=== PATIENT | male | born 1960 | race African-American/Black ===

== ENCOUNTER → 2016-11-16 | Outpatient (CLI) | payer MEDICARE | LOC: OD 13:08 | PROVIDERS: ATTEND Physician Assistant | DX: M25.552 Pain in left hip (principal); M25.551 Pain in right hip | CPT/HCPCS: 73522 ==

== ENCOUNTER 2016-12-23 13:57 | Emergency (ER) | payer MEDICARE, MEDICAID ==
--- NOTE | 2016-12-23 14:32 | ER Document Report ---
ED Medical Screen (RME) - General Chief Complaint: Hip Pain Stated Complaint: HIP PAIN Notes: 56-year-old male kidney transplant patient with prior history of DVT in the right thigh 3-4 years ago. Now only takes a baby aspirin daily. She has had left hip pain for over 5 weeks, x-ray showed mild degenerative changes on 2016. Now he is having pain in the left medial thigh is concerned about DVT. I have greeted and performed a rapid initial assessment of this patient. A comprehensive ED assessment and evaluation of the patient, analysis of test results and completion of the medical decision making process will be conducted by additional ED providers. TRAVEL OUTSIDE OF THE [place] IN LAST 30 DAYS: No - Related Data Allergies/Adverse Reactions: ibuprofen Allergy (Mild, Verified 12/23/16 14:02) because of kidneys iodine [Iodine] Allergy (Mild, Verified 12/23/16 14:02) Hives ketorolac tromethamine [From Toradol] Adverse Reaction (Severe, Verified 14:02) Vomiting warfarin sodium [From Coumadin] Adverse Reaction (Severe, Verified 12/23/16 14: 02) weakness enoxaparin sodium [From Lovenox] Adverse Reaction (Intermediate, Verified 14:02) falls promethazine HCl [From Phenergan] Adverse Reaction (Unknown, Verified 12/23/16 14:02) Vomiting chlorohexidine Allergy (Mild, Uncoded 12/23/16 14:02) Hives Past Medical History - Past Medical History Cardiac Medical History: Reports: Hx Congestive Heart Failure, Hx Hypercholesterolemia Denies: Hx Coronary Artery Disease, Hx Heart Attack, Hx Hypertension - states now hypotension 04/12/14 Pulmonary Medical History: Reports: Hx Bronchitis, Hx Tuberculosis - as child Denies: Hx Asthma, Hx COPD, Hx Pneumonia Neurological Medical History: Denies: Hx Cerebrovascular Accident, Hx Seizures Endocrine Medical History: Reports: Hx Diabetes Mellitus Type 1, Hx Diabetes Mellitus Type 2 - IDDM Renal/ Medical History: Reports: Hx End Stage Renal Disease, Hx Hemodialysis - home dialysis, Hx Kidney Stones. Denies: Hx Peritoneal Dialysis GI Medical History: Reports: Hx Gastroesophageal Reflux Disease Musculoskeltal Medical History: Denies Hx Arthritis Psychiatric Medical History: Reports: Hx Depression Past Surgical History: Reports: Hx Abdominal Surgery - GASTRIC SLEEVE PROCEEDURE January 2013, Hx Cardiac Catheterization, Hx Orthopedic Surgery - rt knee , rt hand rt elbow cataract blood clot left leg 2004, Hx Vascular Surgery - stents in left leg - Immunizations Hx Diphtheria, Pertussis, Tetanus Vaccination: Yes - 2008 Physical Exam - Vital signs Vitals: Temp Pulse Resp BP Pulse Ox 97.8 F 78 16 179/81 H 99 12/23/16 14:03 12/23/16 14:03 12/23/16 14:03 12/23/16 14:03 12/23/16 14:03 Course - Vital Signs Vital signs: Temp Pulse Resp BP Pulse Ox 97.8 F 78 16 179/81 H 99 12/23/16 14:03 12/23/16 14:03 12/23/16 14:03 12/23/16 14:03 12/23/16 14:03
[2016-12-23 14:58] LABS: ABSOLUTE EOSINOPHILS # (AUTO) 0.1 10^3/uL (0.0-0.6); ABSOLUTE LYMPHOCYTES (AUTO) 1.2 10^3/uL (0.5-4.7); ABSOLUTE MONOCYTES (AUTO) 0.4 10^3/uL (0.1-1.4); ABSOLUTE NEUT (AUTO) 2.3 10^3/uL (1.7-8.2); BASOPHILS % (AUTO) 0.3 % (0-2); EOSINOPHILS % (AUTO) 1.9 % (0-6); HEMATOCRIT 36.6 % (37.9-51.0); HEMOGLOBIN 11.8 g/dL (13.5-17.0); HGB HCT DIFFERENCE -1.2; LYMPHOCYTES % (AUTO) 29.6 % (13-45); MEAN CORPUSCULAR HGB CONC 32.3 g/dL (32.0-36.0); MEAN CORPUSCULAR VOLUME 74 fl (80-97); MONOCYTES % (AUTO) 9.7 % (3-13); RED BLOOD COUNT 4.92 10^6/uL (4.35-5.55); RED CELL DISTRIBUTION WIDTH 17.9 % (11.5-14.0); SEGMENTED NEUTROPHILS % (AUTO) 58.5 % (42-78)
[2016-12-23 15:32] LABS: ALANINE AMINOTRANSFERASE 29 U/L (21-72); ALBUMIN 4.1 g/dL (3.5-5.0); ALKALINE PHOSPHATASE 116 U/L (38-126); ANION GAP 13 (5-19); ASPARTATE AMINO TRANSFERASE 18 U/L (17-59); BILIRUBIN,DIRECT 0.3 mg/dL (0.0-0.4); BILIRUBIN,TOTAL 0.6 mg/dL (0.2-1.3); BLOOD UREA NITROGEN 25 mg/dL (7-20); CALCIUM 9.7 mg/dL (8.4-10.2); CARBON DIOXIDE 26 mmol/L (22-30); CHLORIDE 107 mmol/L (98-107); CREATININE RESULT 1.64 mg/dL (0.52-1.25); GLUCOSE 99 mg/dL (75-110); SODIUM 146.3 mmol/L (137-145)
--- NOTE | 2016-12-23 17:45 | ER Document Report ---
HPI - HPI Patient complains to provider of: left hip and groin pain Onset: Other - 5 weeks Onset/Duration: Gradual Quality of pain: Achy, Stabbing, Throbbing Pain Level: 4 Context: 56-year-old male found to have arthritis in the left hip has pain that radiates into the left groin for 5 weeks. He was concerned that he might have a DVT which she had had in the right leg in the past. He has already been [facility] by [facility] physician Keri venous Doppler ultrasound has been ordered. The pain is worse with movement. Associated Symptoms: None Exacerbated by: Movement, Walking Relieved by: Denies Similar symptoms previously: Yes Recently seen / treated by doctor: Yes - ROS ROS below otherwise negative: Yes Systems Reviewed and Negative: Yes All other systems reviewed and negative - REPRODUCTIVE Reproductive: DENIES: : - DERM Skin Color: Normal Past Medical History - General Information source: Patient - Social History Smoking Status: Unknown if Ever Smoked Frequency of alcohol use: None Drug Abuse: None Lives with: Spouse/Significant other Family History: Reviewed & Not Pertinent Patient has suicidal ideation: No Patient has homicidal ideation: No - Past Medical History Cardiac Medical History: Reports: Hx Congestive Heart Failure, Hx Hypercholesterolemia Pulmonary Medical History: Reports: Hx Bronchitis, Hx Tuberculosis - as child Endocrine Medical History: Reports: Hx Diabetes Mellitus Type 1, Hx Diabetes Mellitus Type 2 - IDDM Renal/ Medical History: Reports: Hx End Stage Renal Disease, Hx Hemodialysis - home dialysis, Hx Kidney Stones. Denies: Hx Peritoneal Dialysis GI Medical History: Reports: Hx Gastroesophageal Reflux Disease Musculoskeltal Medical History: Reports Hx Arthritis - Left hip Psychiatric Medical History: Reports: Hx Depression Past Surgical History: Reports: Hx Abdominal Surgery - GASTRIC SLEEVE PROCEEDURE January 2013, Hx Cardiac Catheterization, Hx Orthopedic Surgery - rt knee , rt hand rt elbow cataract blood clot left leg 2004, Hx Vascular Surgery - stents in left leg - Immunizations Hx Diphtheria, Pertussis, Tetanus Vaccination: Yes - 2008 Hx Pneumococcal Vaccination: 09/04/08 Vertical Provider Document - CONSTITUTIONAL Agree With Documented VS: Yes Exam Limitations: No Limitations - INFECTION CONTROL TRAVEL OUTSIDE OF THE [place] IN LAST 30 DAYS: No - HEENT HEENT: Normocephalic - NECK Neck: Supple - RESPIRATORY Respiratory: Breath Sounds Normal, No Respiratory Distress O2 Sat by Pulse Oximetry: 99 - CARDIOVASCULAR Cardiovascular: Regular Rate, Regular Rhythm - GI/ABDOMEN Gastrointestinal: Abdomen Soft, Abdomen Non-Tender, No Organomegaly - BACK Back: Normal Inspection - MUSCULOSKELETAL/EXTREMETIES Musculoskeletal/Extremeties: MAEW, FROM, Tender - Left groin muscle and tendon no hernia., Full femoral pulse. Notes: No rash, no heat, no hip tenderness with internal/external rotation. - NEURO Level of Consciousness: Awake, Alert - DERM Integumentary: Warm, Dry, No Rash Course - Re-evaluation Re-evalutation: 12/23/16 17:59 Dr. Raymon Bragg called in the venous Doppler ultrasound is negative. His BUN/creatinine are lower than his norm. - Vital Signs Vital signs: Temp Pulse Resp BP Pulse Ox 97.8 F 78 16 179/81 H 99 12/23/16 14:03 12/23/16 14:03 12/23/16 14:03 12/23/16 14:03 12/23/16 14:03 - Laboratory Result Diagrams: 12/23/16 14:45 12/23/16 14:45 Laboratory results interpreted by me: 12/23/16 12/23/16 14:45 14:45 Hgb 11.8 L Hct 36.6 L MCV 74 L MCH 24.0 L RDW 17.9 H Plt Count 134 L Sodium 146.3 H BUN 25 H Creatinine 1.64 H Est GFR ( Amer) 53 L Est GFR (Non-Af Amer) 44 L Discharge - Discharge Clinical Impression: chronic left hip and groin pain, Arthritis of left hip Condition: Good Disposition: HOME, SELF-CARE Instructions: Arthritis ([facility]), Myalagia (Muscle Pain) ([facility]) Additional Instructions: Call and get appointment with Dr. Bowens next week Return to the emergency room if worse Venous Doppler ultrasound is negative that was read by Dr. Raymon Bragg Please complete the patient satisfaction survey if you get one, and return it.. If you do not receive a survey, then you can go to the [facility] website, [email or web address] and place your comments about your very good care. Thank you very much. It was a pleasure being your medical provider today. Referrals: DANIELE CLARKE MD [ACTIVE STAFF] - Follow up in 3-5 days
[2016-12-23 18:34] VITALS: BP 149/70
--- NOTE | 2016-12-24 14:48 | XCELERA REPORT ---
[address] [address] Lower Extremity Venous Evaluation Name: SHI SIDDIQI Age: 56 yrs Gender: Male : 1960 Patient Status: Emergency Patient Location: ER Study Date: 12/23/2016 03:29 PM Procedure: Color flow and duplex imaging of the veins of the left lower extremity as well as the right Common Femoral vein. Reason For Study: left medial thigh pain,prior DVT right thigh Ordering Physician: JOHNNY MEIER Performed By: Bella Leone Right Sided Venous Evaluation The right common femoral vein is fully compressible. Spontaneous and phasic flow is present in the right common femoral vein. Left Sided Venous Evaluation Normal vessel filling wall to wall, compression and augmentation as well as Colour flow down to the infrageniculate veins. Critical Findings Called in to the ER. Interpretation Summary No duplex evidence of DVT or obstruction in the left lower extremity nor in the right Common Femoral vein. : JOHNNY MEIER > Raymon Bragg
== END 2016-12-23 18:33 | disposition home or self-care (01) ==
LOC: ER 13:57
DX: G89.29 Other chronic pain (principal); M25.552 Pain in left hip; R10.9 Unspecified abdominal pain; M16.12 Unilateral primary osteoarthritis, left hip; E78.00 Pure hypercholesterolemia, unspecified; E11.22 Type 2 diabetes mellitus with diabetic chronic kidney disease; N18.6 End stage renal disease; Z99.2 Dependence on renal dialysis; Z79.4 Long term (current) use of insulin; Z86.11 Personal history of tuberculosis; Z86.718 Personal history of other venous thrombosis and embolism
CPT/HCPCS: 36415; 80053; 85025; 93971; 99284

== ENCOUNTER → 2016-12-28 | Outpatient (CLI) | payer MEDICARE, MEDICAID | LOC: RAD 19:51 | PROVIDERS: ATTEND Family Medicine | DX: M25.552 Pain in left hip (principal) ==

== ENCOUNTER → 2017-04-05 | Outpatient (CLI) | payer MEDICARE, MEDICAID ==
[2017-04-05 12:03] LABS: ABSOLUTE EOSINOPHILS # (AUTO) 0.1 10^3/uL (0.0-0.6); ABSOLUTE LYMPHOCYTES (AUTO) 0.6 10^3/uL (0.5-4.7); ABSOLUTE MONOCYTES (AUTO) 0.3 10^3/uL (0.1-1.4); ABSOLUTE NEUT (AUTO) 2.3 10^3/uL (1.7-8.2); BASOPHILS % (AUTO) 0.3 % (0-2); EOSINOPHILS % (AUTO) 2.4 % (0-6); HEMATOCRIT 36.5 % (37.9-51.0); HEMOGLOBIN 11.8 g/dL (13.5-17.0); HGB HCT DIFFERENCE -1.1; LYMPHOCYTES % (AUTO) 18.7 % (13-45); MEAN CORPUSCULAR HEMOGLOBIN 24.6 pg (27.0-33.4); MEAN CORPUSCULAR HGB CONC 32.4 g/dL (32.0-36.0); MEAN CORPUSCULAR VOLUME 76 fl (80-97); MONOCYTES % (AUTO) 8.4 % (3-13); RED CELL DISTRIBUTION WIDTH 18.2 % (11.5-14.0); SEGMENTED NEUTROPHILS % (AUTO) 70.2 % (42-78); WHITE BLOOD COUNT 3.3 10^3/uL (4.0-10.5)
[2017-04-05 12:23] LABS: BLOOD UREA NITROGEN 25 mg/dL (7-20); CALCIUM 9.7 mg/dL (8.4-10.2); GLUCOSE 71 mg/dL (75-110)
[2017-04-05 12:24] LABS: ALANINE AMINOTRANSFERASE 28 U/L (21-72); ALBUMIN 3.9 g/dL (3.5-5.0); ALKALINE PHOSPHATASE 104 U/L (38-126); ANION GAP 13 (5-19); ASPARTATE AMINO TRANSFERASE 20 U/L (17-59); BILIRUBIN,DIRECT 0.3 mg/dL (0.0-0.4); BILIRUBIN,TOTAL 0.8 mg/dL (0.2-1.3); CARBON DIOXIDE 25 mmol/L (22-30); CHLORIDE 107 mmol/L (98-107); CHOLESTEROL 209.27 mg/dL (0-200); Direct HDL 56 mg/dL (>40); POTASSIUM 3.6 mmol/L (3.6-5.0); SODIUM 144.5 mmol/L (137-145); TOTAL PROTEIN 6.8 g/dL (6.3-8.2); TRIGLYCERIDES 56 mg/dL (<150)
[2017-04-05 12:34] LABS: DIRECT LDL 137 mg/dL (<100)
[2017-04-06 12:38] LABS: CREATININE URINE 15.8 mg/dL (Not Estab.); MICROALBUMIN URINE <3.0 ug/mL (Not Estab.)
== END ==
LOC: OD 10:40
PROVIDERS: ATTEND Family Medicine Geriatric Medicine
DX: E11.40 Type 2 diabetes mellitus with diabetic neuropathy, unspecified (principal); I10 Essential (primary) hypertension; E66.9 Obesity, unspecified; Z79.899 Other long term (current) drug therapy
CPT/HCPCS: 36415; 80053; 80061; 82043; 82570; 83036; 84443; 85025

== ENCOUNTER → 2017-05-30 | Outpatient (CLI) | payer MEDICARE, MEDICAID ==
--- NOTE | 2017-05-30 12:41 | RADIOLOGY REPORT (SQ) ---
EXAM DESCRIPTION: FOOT RIGHT COMPLETE COMPLETED DATE/TIME: 05/30/2017 12:31 pm REASON FOR STUDY: PAIN IN RIGHT FOOT,CELLULITIS OF RIGHT TOE M79.671 PAIN IN RIGHT FOOT L03.031 CE LLULITIS OF RIGHT TOE COMPARISON: 06/28/2016. NUMBER OF VIEWS: Three views. TECHNIQUE: AP, lateral and oblique without weight bearing radiographic images acquired of the right foot. LIMITATIONS: None. FINDINGS: MINERALIZATION: Normal. BONES: No acute fracture or dislocation. No worrisome bone lesions. Old healed fracture of the proxim al phalanx of the 5th toe. Osteophytes in the mid foot. Spurring on the calcaneus. JOINTS: No erosions. No laurie-articular osteopenia. No chondrocalcinosis. SOFT TISSUES: No swelling. No calcifications. OTHER: No other significant finding. IMPRESSION: STABLE CHRONIC CHANGES. NO ACUTE FINDINGS. NO RADIOGRAPHIC ABNORMALITY INVOLVING THE D ISTAL 2ND TOE. TECHNICAL DOCUMENTATION: JOB ID: [id number] [employer]- All Rights Reserved
== END ==
LOC: OD 12:17
PROVIDERS: ATTEND Family Medicine Geriatric Medicine
DX: M79.671 Pain in right foot (principal); L03.031 Cellulitis of right toe

== ENCOUNTER 2017-06-07 08:10 | Day surgery (SDC) | payer MEDICAID, MEDICARE ==
[~2017-06-07 08:10] MED LIST: DIPHENHYDRAMINE HCL 50 MG/ML VIAL ONE; EPINEPHRINE INJ 1 MG/10 ML DISP.SYRIN ONE; FLUMAZENIL INJ 0.5 MG/5 ML VIAL ONE; GLUCAGON,HUMAN RECOMB 1 MG INJ ONE; NALOXONE HCL INJ/PF 0.4 MG/1 ML SDV ONE; ONDANSETRON HCL INJ/PF 4 MG/2 ML SDV ONE
[2017-06-07] MEDS: MIDAZOLAM 2 MG/2 ML INJ ONE ×3 (08:40→08:48)
[2017-06-07] MEDS: FENTANYL CITRATE INJ/PF 100 MCG/2 ML AMPUL ONE ×2 (08:42→08:44)
--- NOTE | 2017-06-07 08:55 | Operative Report ---
Operative Report DATE OF SURGERY: 06/07/17 Operative Report: The risks benefits and alternatives of the procedure explained to the patient in detail and informed consent is obtained.A GIF Olympus video scope was inserted into the patient's mouth and hypopharynx, the esophagus is identified intubated and insufflated, the scope was then advanced through the esophagus stomach and duodenum, retroflexion maneuver is done, the esophagus stomach and first and second portions of the duodenum examined PREOPERATIVE DIAGNOSIS: Gastroesophageal reflux disease, dyspepsia POSTOPERATIVE DIAGNOSIS: Status post gastric sleeve surgery. Gastritis status post biopsy rule out Helicobacter pylori OPERATION: EGD with biopsy SURGEON: DORA ROGERS ANESTHESIA: Moderate Sedation - 4 mg of Versed, 75 mcg of fentanyl. Conscious sedation monitoring time 30 minutes. TISSUE REMOVED OR ALTERED: Gastric mucosal specimen obtained COMPLICATIONS: None. ESTIMATED BLOOD LOSS: None. INTRAOPERATIVE FINDINGS: As described above. PROCEDURE: Patient tolerated procedure well. No immediate postprocedure complications are noted. Patient discharged in good condition. Discharge date 06/07/2017. Discharge diet: Regular. Discharge activity: Regular. 2-3 week follow-up to discuss findings. We will wait on pathology. Patient is instructed to call the office or proceed to the emergency room should there be any further problems or questions.
[2017-06-07 11:15] VITALS: BP 128/61
== END 2017-06-07 10:10 | disposition home or self-care (01) ==
LOC: END 08:10
PROVIDERS: ATTEND Internal Medicine Gastroenterology
PROC: 0DB68ZX Excision of Stomach, Via Natural or Artificial Opening Endoscopic, Diagnostic (ICD-10-PCS; principal; 2017-06-07 08:30)
DX: K29.70 Gastritis, unspecified, without bleeding (principal); K21.9 Gastro-esophageal reflux disease without esophagitis; I10 Essential (primary) hypertension; Z79.899 Other long term (current) drug therapy; Z79.4 Long term (current) use of insulin; Z79.82 Long term (current) use of aspirin
CPT/HCPCS: 43239; 82962; 88342 ×2; 88305 ×2; 88312 ×2; 88313 ×2; J2250; J3010; J0171; J1200; J1610; J2310; J2405; J3490

== ENCOUNTER → 2017-12-05 | Outpatient (CLI) | payer MEDICARE, MEDICAID ==
--- NOTE | 2017-12-05 13:38 | RADIOLOGY REPORT (SQ) ---
EXAM DESCRIPTION: ARTERIAL LOWER EXTREM UNILAT COMPLETED DATE/TIME: 12/05/2017 12:08 pm REASON FOR STUDY: PVD M79.662 PAIN IN LEFT LOWER LEG I73.9 PERIPHERAL VASCULAR DISEASE, UNSPECIFIE D COMPARISON: 10/27/2012 TECHNIQUE: Dynamic and static marie scale and color images acquired of the left lower extremity arter ies. Additional selected spectral images recorded. ABIs recorded. LIMITATIONS: None. FINDINGS: RIGHT LEG: ABIS: Normal, over 1.0. RIGHT DORSALIS PEDIS: Multiphasic flow, normal waveforms. TBI: Not performed. OTHER: No other significant finding. LEFT LEG: ABIS: Normal, over 1.0. INFLOW ARTERIES: Normal, no obstruction evident. FEMORAL ARTERIES:Multiphasic waveforms. Normal, no velocity elevation to suggest focal stenosis. Norm al color Doppler evaluation. No aneurysm. POPLITEAL ARTERY:Multiphasic waveforms. Normal, no velocity elevation to suggest focal stenosis. Norm al color Doppler evaluation. No aneurysm. PATENT TIBIOPERONEAL TRUNK AND 3 VESSEL RUNOFF: Yes, normal vessels. TBI: Not performed. OTHER: No other significant finding. IMPRESSION: NORMAL LEFT LOWER EXTREMITY ARTERIAL DOPPLER WITH ABIs. COMMENT: [facility] NORMAL: Greater than 1.0 MINIMAL DISEASE: 0.9 to 1.0 CLAUDICATION: 0.5 to 0.9 SEVERE ARTERIAL DISEASE: Less than 0.5 [facility] NORMAL: Greater than 1.0 (1.2 If Heavy Calcifications) NORMAL TO MILD ISCHEMIA: 0.8 to 1.0 MODERATE ISCHEMIA: 0.4 to 0.8 SEVERE ISCHEMIA: Less than 0.4 TECHNICAL DOCUMENTATION: JOB ID: [id number] [employer]- All Rights Reserved Reading location - IP/workstation name: [email or web address]
== END ==
LOC: SP 10:48
PROVIDERS: ATTEND Family Medicine Geriatric Medicine
DX: I73.9 Peripheral vascular disease, unspecified (principal); M79.672 Pain in left foot; M79.662 Pain in left lower leg
CPT/HCPCS: 93926

== ENCOUNTER → 2017-12-05 | Outpatient (CLI) | payer MEDICARE, MEDICAID ==
--- NOTE | 2017-12-05 10:03 | RADIOLOGY REPORT (SQ) ---
EXAM DESCRIPTION: FOOT LEFT COMPLETE COMPLETED DATE/TIME: 12/05/2017 9:42 am REASON FOR STUDY: PAIN IN LEFT FOOT M79.672 PAIN IN LEFT FOOT COMPARISON: None. NUMBER OF VIEWS: Three views. TECHNIQUE: AP, lateral and oblique radiographic images acquired of the left foot. LIMITATIONS: None. FINDINGS: MINERALIZATION: Overall normal bone density BONES: Old fractures along the base of the 3rd and 4th metatarsals with surrounding bony bridging austin brandon. JOINTS: There is advanced osteoarthritis at the 3rd and 4th tarsometatarsal joints with joint space n arrowing and bony spurring. Advanced osteoarthritis at the 5th tarsometatarsal joint. SOFT TISSUES: No soft tissue swelling. No foreign body. OTHER: No other significant finding. IMPRESSION: Old healed fractures of the bases, 4th and 5th metatarsals Advanced osteoarthritis at the 3rd 4th and 5th tarsometatarsal joints. TECHNICAL DOCUMENTATION: JOB ID: [id number] [employer]- All Rights Reserved Reading location - IP/workstation name: [email or web address]
== END ==
LOC: OD 09:29
PROVIDERS: ATTEND Family Medicine Geriatric Medicine
DX: M79.672 Pain in left foot (principal); Z87.81 Personal history of (healed) traumatic fracture

== ENCOUNTER → 2018-01-08 | Outpatient (CLI) | payer MEDICARE ==
[2018-01-08 09:24] LABS: ANION GAP 12 (5-19); BLOOD UREA NITROGEN 26 mg/dL (7-20); CALCIUM 10.1 mg/dL (8.4-10.2); CARBON DIOXIDE 31 mmol/L (22-30); CHLORIDE 108 mmol/L (98-107); GLUCOSE 95 mg/dL (75-110); POTASSIUM 3.6 mmol/L (3.6-5.0); SODIUM 150.7 mmol/L (137-145); URIC ACID 8.8 mg/dL (3.5-8.5)
== END ==
LOC: OD 08:01
PROVIDERS: ATTEND Family Medicine Geriatric Medicine
DX: M79.672 Pain in left foot (principal)
CPT/HCPCS: 36415; 80048; 84550

== ENCOUNTER → 2018-02-19 | Outpatient (CLI) | payer MEDICARE ==
--- NOTE | 2018-02-19 15:50 | RADIOLOGY REPORT (SQ) ---
EXAM DESCRIPTION: FOOT RIGHT COMPLETE COMPLETED DATE/TIME: 02/19/2018 3:31 pm REASON FOR STUDY: CELLULITIS OF RT TOE,CHRONIC GOUT, UNSPECIFIED, WITHOUT TOPHUS (TOPHI) Z79.899 OT HER ALF (CURRENT) DRUG THERAPY L03.031 CELLULITIS OF RIGHT TOE M1A.9XX0 CHRONIC GOUT, UNSPECI FIED, WITHOUT TOPHUS (TOPHI) COMPARISON: 05/30/2017 NUMBER OF VIEWS: Three views. TECHNIQUE: AP, lateral and oblique radiographic images acquired of the right foot. LIMITATIONS: None. FINDINGS: MINERALIZATION: Normal. BONES: No acute fracture. There is what appears to be chronic subluxation of the interphalangeal jens nt of the great toe. JOINTS: No effusions. SOFT TISSUES: No soft tissue swelling. No foreign body. OTHER: No other significant finding. IMPRESSION: Subluxation of the interphalangeal joint of the great toe. TECHNICAL DOCUMENTATION: JOB ID: [id number] [employer]- All Rights Reserved Reading location - IP/workstation name: [email or web address]
[2018-02-19 16:22] LABS: ABSOLUTE EOSINOPHILS # (AUTO) 0.1 10^3/uL (0.0-0.6); ABSOLUTE LYMPHOCYTES (AUTO) 0.8 10^3/uL (0.5-4.7); ABSOLUTE MONOCYTES (AUTO) 0.4 10^3/uL (0.1-1.4); ABSOLUTE NEUT (AUTO) 3.7 10^3/uL (1.7-8.2); BASOPHILS % (AUTO) 0.2 % (0-2); EOSINOPHILS % (AUTO) 1.1 % (0-6); HEMATOCRIT 37.2 % (37.9-51.0); LYMPHOCYTES % (AUTO) 15.6 % (13-45); MEAN CORPUSCULAR HGB CONC 32.3 g/dL (32.0-36.0); MEAN CORPUSCULAR VOLUME 78 fl (80-97); MONOCYTES % (AUTO) 7.8 % (3-13); PLATELET COUNT 150 10^3/uL (150-450); RED CELL DISTRIBUTION WIDTH 18.8 % (11.5-14.0); SEGMENTED NEUTROPHILS % (AUTO) 75.3 % (42-78); TOTAL CELLS COUNTED % (AUTO) 100 %; WHITE BLOOD COUNT 4.9 10^3/uL (4.0-10.5)
[2018-02-19 16:39] LABS: ALANINE AMINOTRANSFERASE 27 U/L (21-72); ALBUMIN 4.2 g/dL (3.5-5.0); ALKALINE PHOSPHATASE 109 U/L (38-126); ANION GAP 14 (5-19); ASPARTATE AMINO TRANSFERASE 20 U/L (17-59); BILIRUBIN,DIRECT 0.3 mg/dL (0.0-0.4); BILIRUBIN,TOTAL 0.9 mg/dL (0.2-1.3); BLOOD UREA NITROGEN 21 mg/dL (7-20); CALCIUM 10.1 mg/dL (8.4-10.2); CARBON DIOXIDE 27 mmol/L (22-30); CHLORIDE 106 mmol/L (98-107); GLUCOSE 157 mg/dL (75-110); POTASSIUM 3.6 mmol/L (3.6-5.0); SODIUM 146.5 mmol/L (137-145); TOTAL PROTEIN 7.3 g/dL (6.3-8.2); URIC ACID 8.1 mg/dL (3.5-8.5)
== END ==
LOC: OD 14:55
PROVIDERS: ATTEND Family Medicine Geriatric Medicine
DX: L03.031 Cellulitis of right toe (principal); Z79.899 Other long term (current) drug therapy; M1A.9XX0 Chronic gout, unspecified, without tophus (tophi)
CPT/HCPCS: 36415; 80053; 84550; 85025; 87040

== ENCOUNTER → 2018-03-28 | Outpatient (CLI) | payer MEDICARE, MEDICAID ==
[2018-03-28 13:15] LABS: ANION GAP 12 (5-19); BLOOD UREA NITROGEN 20 mg/dL (7-20); CALCIUM 9.2 mg/dL (8.4-10.2); CARBON DIOXIDE 27 mmol/L (22-30); CHLORIDE 108 mmol/L (98-107); GLUCOSE 111 mg/dL (75-110); POTASSIUM 3.9 mmol/L (3.6-5.0); SODIUM 146.9 mmol/L (137-145); URIC ACID 6.2 mg/dL (3.5-8.5)
== END ==
LOC: OD 11:44
PROVIDERS: ATTEND Family Medicine Geriatric Medicine
DX: M1A.9XX0 Chronic gout, unspecified, without tophus (tophi) (principal); I10 Essential (primary) hypertension
CPT/HCPCS: 36415; 80048; 84550

== ENCOUNTER → 2018-04-10 | Outpatient (CLI) | payer MEDICAID, MEDICARE ==
--- NOTE | 2018-04-10 16:14 | XCELERA REPORT ---
[address] [address] Lower Extremity Arterial Evaluation Name: SHI SIDDIQI Age: 57 yrs Gender: Male : 1960 Patient Status: Preadmit Patient Location: [place] Study Date: 04/10/2018 09:14 AM Procedure: A color flow and duplex scan of the lower extremity arteries was performed bilaterally with velocity and waveform anaylsis. Reason For Study: ULCER Ordering Physician: KING LISA Performed By: Nikhil Perez Measurements and Calculations Right Left WILD LIFE PHOTOGRAPHER PSV 117.1 117.5 cm/sec Prox PFA PSV 85.5 -83.0 cm/sec Prox SFA PSV 135.3 117.0 cm/sec Mid SFA PSV -118.6 -110.3cm/sec Dist SFA PSV -78.1 -80.0 cm/sec Prox Pop A PSV 93.7 63.7 cm/sec Dist JASON PSV 22.2 13.0 cm/sec Dist GANG INVESTIGATOR PSV 145.4 79.5 cm/sec Bayron Pedis PSV -49.0 -53.6 cm/sec Right Side Arterial Evaluation Normal velocity and triphasic waveforms noted from the Common Femoral artery to the Posterior Tibial. Monophasic with severe attenuation in the Anterior Tibial, biphasic with well preserved velocity ib the Dorsalis Pedis . 50-99 % stenosis .At the anterior Tibial, seeming reconstitution in the DP. Ankle Brachial index was not done, patient had a study recently. Left Side Arterial Evaluation Normal velocity and triphasic waveforms noted from the Common Femoral artery to the infrageniculate vessels. 0 % stenosis noted. Ankle Brachial index done recently. Interpretation Summary Mild hemodynamically significant lesions in the right lower extremity only, on duplex imaging, at rest. No hemodynamically significant lesions in the left lower extremity only, on duplex imaging, at rest. : KING LISA Raymon Bragg
== END ==
LOC: WI 08:49
PROVIDERS: ATTEND Preventive Medicine Undersea and Hyperbaric Medicine
DX: L97.512 Non-pressure chronic ulcer of other part of right foot with fat layer exposed (principal)
CPT/HCPCS: 93925

== ENCOUNTER → 2018-04-10 | Outpatient (CLI) | payer MEDICARE ==
[2018-04-10 11:09] LABS: ABSOLUTE EOSINOPHILS # (AUTO) 0.1 10^3/uL (0.0-0.6); ABSOLUTE LYMPHOCYTES (AUTO) 1.1 10^3/uL (0.5-4.7); ABSOLUTE MONOCYTES (AUTO) 0.4 10^3/uL (0.1-1.4); ABSOLUTE NEUT (AUTO) 2.4 10^3/uL (1.7-8.2); BASOPHILS % (AUTO) 0.3 % (0-2); EOSINOPHILS % (AUTO) 2.1 % (0-6); HEMATOCRIT 35.6 % (37.9-51.0); HEMOGLOBIN 11.3 g/dL (13.5-17.0); LYMPHOCYTES % (AUTO) 27.6 % (13-45); MEAN CORPUSCULAR HEMOGLOBIN 24.6 pg (27.0-33.4); MEAN CORPUSCULAR HGB CONC 31.8 g/dL (32.0-36.0); MEAN CORPUSCULAR VOLUME 77 fl (80-97); MONOCYTES % (AUTO) 9.6 % (3-13); PLATELET COUNT 149 10^3/uL (150-450); RED BLOOD COUNT 4.61 10^6/uL (4.35-5.55); SEGMENTED NEUTROPHILS % (AUTO) 60.4 % (42-78); TOTAL CELLS COUNTED % (AUTO) 100 %; WHITE BLOOD COUNT 3.9 10^3/uL (4.0-10.5)
[2018-04-10 11:41] LABS: ALANINE AMINOTRANSFERASE 27 U/L (21-72); ALBUMIN 3.7 g/dL (3.5-5.0); ALKALINE PHOSPHATASE 92 U/L (38-126); ANION GAP 10 (5-19); ASPARTATE AMINO TRANSFERASE 27 U/L (17-59); BILIRUBIN,DIRECT 0.2 mg/dL (0.0-0.4); BILIRUBIN,TOTAL 0.8 mg/dL (0.2-1.3); BLOOD UREA NITROGEN 19 mg/dL (7-20); CALCIUM 9.4 mg/dL (8.4-10.2); CARBON DIOXIDE 28 mmol/L (22-30); CHLORIDE 108 mmol/L (98-107); GLUCOSE 115 mg/dL (75-110); POTASSIUM 3.5 mmol/L (3.6-5.0); SODIUM 145.6 mmol/L (137-145); TOTAL PROTEIN 6.6 g/dL (6.3-8.2)
[2018-04-10 11:42] LABS: C-REACTIVE PROTEIN < 5.0 mg/L (<10.0)
[2018-04-10 11:54] LABS: ERYTHROCYTE SEDIMENTATION RATE 22 mm/hr (0-20)
--- NOTE | 2018-04-10 12:36 | RADIOLOGY REPORT (SQ) ---
EXAM DESCRIPTION: FOOT RIGHT COMPLETE COMPLETED DATE/TIME: 04/10/2018 10:36 am REASON FOR STUDY: L97.512 FAT LAYER EXPOSED, TYPE 2 DIABETES MELLITUS WITH FOOT ULCER E11.621 TYPE 2 DIABETES MELLITUS WITH FOOT ULCER COMPARISON: 02/19/2018 NUMBER OF VIEWS: Three views. TECHNIQUE: AP, lateral and oblique without weight bearing radiographic images acquired of the right foot. LIMITATIONS: None. FINDINGS: MINERALIZATION: Normal. BONES: Persistent subluxation at the interphalangeal joint of the great toe. The cortex of bone jer[place] cent to the subluxed joint demonstrates radiolucent change that could be secondary to osteomyelitis. JOINTS: See above SOFT TISSUES: Marked and progressive soft tissue swelling surrounding interphalangeal joint consisten t with cellulitis and ulceration. OTHER: No other significant finding. IMPRESSION: Significant progression of cellulitis great toe is since 02/19/2018. Interval developmen t of radiolucent or possibly destructive change of the cortex and bone adjacent to the joint that may represent osteomyelitis. TECHNICAL DOCUMENTATION: JOB ID: [id number] [employer]- All Rights Reserved Reading location - IP/workstation name: [email or web address]
== END ==
LOC: OD 10:09
PROVIDERS: ATTEND Preventive Medicine Undersea and Hyperbaric Medicine
DX: E11.621 Type 2 diabetes mellitus with foot ulcer (principal); L97.512 Non-pressure chronic ulcer of other part of right foot with fat layer exposed; L03.031 Cellulitis of right toe
CPT/HCPCS: 36415; 80053; 83036; 85025; 85652; 86140

== ENCOUNTER → 2018-05-09 | Outpatient (CLI) | payer MEDICARE ==
[2018-05-09 11:59] LABS: ABSOLUTE EOSINOPHILS # (AUTO) 0.1 10^3/uL (0.0-0.6); ABSOLUTE LYMPHOCYTES (AUTO) 0.9 10^3/uL (0.5-4.7); ABSOLUTE MONOCYTES (AUTO) 0.4 10^3/uL (0.1-1.4); ABSOLUTE NEUT (AUTO) 2.6 10^3/uL (1.7-8.2); BASOPHILS % (AUTO) 0.2 % (0-2); HEMOGLOBIN 11.7 g/dL (13.5-17.0); LYMPHOCYTES % (AUTO) 23.7 % (13-45); MEAN CORPUSCULAR HEMOGLOBIN 24.5 pg (27.0-33.4); MEAN CORPUSCULAR HGB CONC 31.8 g/dL (32.0-36.0); MEAN CORPUSCULAR VOLUME 77 fl (80-97); PLATELET COUNT 154 10^3/uL (150-450); RED CELL DISTRIBUTION WIDTH 18.2 % (11.5-14.0); SEGMENTED NEUTROPHILS % (AUTO) 65.1 % (42-78); TOTAL CELLS COUNTED % (AUTO) 100 %; WHITE BLOOD COUNT 3.9 10^3/uL (4.0-10.5)
[2018-05-09 12:29] LABS: ALANINE AMINOTRANSFERASE 21 U/L (21-72); ALBUMIN 3.7 g/dL (3.5-5.0); ALKALINE PHOSPHATASE 81 U/L (38-126); ANION GAP 9 (5-19); ASPARTATE AMINO TRANSFERASE 17 U/L (17-59); BILIRUBIN,DIRECT 0.2 mg/dL (0.0-0.4); BILIRUBIN,TOTAL 0.6 mg/dL (0.2-1.3); BLOOD UREA NITROGEN 24 mg/dL (7-20); CALCIUM 9.2 mg/dL (8.4-10.2); CARBON DIOXIDE 29 mmol/L (22-30); CHLORIDE 107 mmol/L (98-107); GLUCOSE 96 mg/dL (75-110); POTASSIUM 3.6 mmol/L (3.6-5.0); SODIUM 144.6 mmol/L (137-145); TOTAL PROTEIN 6.8 g/dL (6.3-8.2)
[2018-05-09 12:31] LABS: C-REACTIVE PROTEIN < 5.0 mg/L (<10.0)
[2018-05-09 12:46] LABS: ERYTHROCYTE SEDIMENTATION RATE 23 mm/hr (0-20)
--- NOTE | 2018-05-09 13:54 | RADIOLOGY REPORT (SQ) ---
EXAM DESCRIPTION: FOOT RIGHT COMPLETE COMPLETED DATE/TIME: 05/09/2018 11:26 am REASON FOR STUDY: NON-PRS CHRONIC ULCER OTH PRT RIGHT FOOT W FAT LAYER EXPOSED COMPARISON: 04/10/2018. NUMBER OF VIEWS: Three views right foot. LIMITATIONS: None. FINDINGS: Region of interest is at the great toe IP joint. Here, there is chronic subluxation and e rosion. The regional erosion looks somewhat progressive along the base of the distal phalanx and josé miguel ng the distal medial cortex of the proximal phalanx. Osteopenia otherwise. No other areas of erosio n. OTHER: No other significant finding. IMPRESSION: Progressive erosive changes along the great toe IP joint with chronic subluxation and ar thropathy. TECHNICAL DOCUMENTATION: JOB ID: [id number] Reading location - IP/workstation name: [email or web address]
== END ==
LOC: OD 10:49
PROVIDERS: ATTEND Preventive Medicine Undersea and Hyperbaric Medicine
DX: L97.512 Non-pressure chronic ulcer of other part of right foot with fat layer exposed (principal)
CPT/HCPCS: 36415; 80053; 85025; 85652; 86140

== ENCOUNTER → 2018-06-11 | Outpatient (CLI) | payer MEDICARE, MEDICAID ==
--- NOTE | 2018-06-11 11:55 | RADIOLOGY REPORT (SQ) ---
EXAM DESCRIPTION: FOOT RIGHT COMPLETE COMPLETED DATE/TIME: 06/11/2018 11:33 am REASON FOR STUDY: NON PRESSURE ULCER NECROSIS OF BONE L97.514 NON-PRS CHRONIC ULCER OTH PRT RIGHT F OOT W NECROSIS COMPARISON: Right foot films 02/19/2018, 04/10/2018, 05/09/2018 NUMBER OF VIEWS: Three views. TECHNIQUE: AP, lateral and oblique radiographic images acquired of the right foot. LIMITATIONS: None. FINDINGS: Progressive bony resorption of the right great toe distal phalanx at the PIP joint compare d to previous studies, and periosteal new bone along the proximal phalanx from osteomyelitis. Along the medial aspect of the left great toe interphalangeal joint region, a 1 cm diameter skin ulcer is p resent with radiopaque ointment present. Diffuse right second toe soft tissue swelling. Radiopaque ointment along a 1 cm ulcer, right second toe PIP joint region medially. Since the prior exams, there has been resorption or resection of the second toe phalanges adjacent to the 2nd PIP joint. No periosteal new bone along the second toe phal anges. Remainder of the right foot is otherwise unremarkable aside from a small plantar calcaneal spur and m ild bony spurring at the intertarsal joints. IMPRESSION: Progressive bony resorption of the main, right great toe distal phalanx Periosteal new bone along the right great toe proximal phalanx Either resection of, or resorption of the second toe phalanges adjacent to the PIP joint TECHNICAL DOCUMENTATION: JOB ID: [id number] [employer]- All Rights Reserved Reading location - IP/workstation name: [email or web address]
== END ==
LOC: OD 11:20
PROVIDERS: ATTEND Preventive Medicine Undersea and Hyperbaric Medicine
DX: L97.514 Non-pressure chronic ulcer of other part of right foot with necrosis of bone (principal)

== ENCOUNTER 2018-07-02 12:21 | Day surgery (SDC) | payer MEDICARE, MEDICAID ==
[~2018-07-02 12:21] MED LIST changes: +DIAZEPAM 5 MG TABLET PO PRN; -DIPHENHYDRAMINE HCL 50 MG/ML VIAL ONE; -EPINEPHRINE INJ 1 MG/10 ML DISP.SYRIN ONE; -FLUMAZENIL INJ 0.5 MG/5 ML VIAL ONE; -GLUCAGON,HUMAN RECOMB 1 MG INJ ONE; -NALOXONE HCL INJ/PF 0.4 MG/1 ML SDV ONE; -ONDANSETRON HCL INJ/PF 4 MG/2 ML SDV ONE
[2018-07-02 13:20] LABS: HEMATOCRIT 35.4 % (37.9-51.0); HEMOGLOBIN 11.7 g/dL (13.5-17.0); MEAN CORPUSCULAR HEMOGLOBIN 25.5 pg (27.0-33.4); MEAN CORPUSCULAR VOLUME 77 fl (80-97); PLATELET COUNT 136 10^3/uL (150-450); RED BLOOD COUNT 4.57 10^6/uL (4.35-5.55); RED CELL DISTRIBUTION WIDTH 17.8 % (11.5-14.0)
[2018-07-02] MEDS ORDERED: DIAZEPAM 5 MG TABLET ONE (13:27)
[2018-07-02] MEDS ORDERED: OXYCODONE-ACETAMINOPHEN 5-325 MG TABLET ONE (13:27)
[2018-07-02] MEDS ORDERED: LIDOCAINE 0.5% INJ-PF (5 MG/ML) 50 ML SDV ONE (13:32)
[2018-07-02] MEDS ORDERED: OXYCODONE-ACETAMINOPHEN 5-325 MG TABLET PO PRN (13:33)
[2018-07-02 13:35] LABS: ANION GAP 10 (5-19); BLOOD UREA NITROGEN 27 mg/dL (7-20); CALCIUM 9.2 mg/dL (8.4-10.2); CARBON DIOXIDE 25 mmol/L (22-30); CHLORIDE 108 mmol/L (98-107); GLUCOSE 243 mg/dL (75-110); POTASSIUM 3.9 mmol/L (3.6-5.0); SODIUM 143.4 mmol/L (137-145)
[2018-07-02] MEDS ORDERED: MIDAZOLAM 2 MG/2 ML INJ ONE (13:35)
[2018-07-02] MEDS ORDERED: FENTANYL CITRATE INJ/PF 100 MCG/2 ML AMPUL ONE (13:35)
--- NOTE | 2018-07-02 15:15 | RADIOLOGY REPORT (SQ) ---
EXAM DESCRIPTION: TUNNELED CENTRAL LINE COMPLETED DATE/TIME: 07/02/2018 3:06 pm REASON FOR STUDY: NEED FOR VASCULAR ACCESS L97.512 NON-PRS CHRONIC ULCER OTH PRT RIGHT FOOT W FAT L SHAYNE L97.514 NON-PRS CHRONIC ULCER OTH PRT RIGHT FOOT W NECROSIS COMPARISON: None. FLUOROSCOPY TIME: 2.3 minutes. 20 images saved to PACS. TECHNIQUE: Intra-operative images acquired during surgical procedure to evaluate progress. NUMBER OF IMAGES: 20 images. LIMITATIONS: None. FINDINGS: Images of the chest acquired during catheter placement. IMPRESSION: IMAGE(S) OBTAINED DURING PROCEDURE. COMMENT: Quality ID [id number]: Final reports for procedures using fluoroscopy that document radiation exp osure indices, or exposure time and number of fluorographic images (if radiation exposure indices are not available) Please consult full operative report of the attending physician for description of the procedure. TECHNICAL DOCUMENTATION: JOB ID: [id number] [employer]- All Rights Reserved Reading location - IP/workstation name: [email or web address]
--- NOTE | 2018-07-02 15:43 | Discharge Summary ---
Discharge Summary (SDC) - Discharge Final Diagnosis: Infected foot ulcer. 2. Renal transplant. Date of Surgery: 07/02/18 Discharge Date: 07/02/18 Condition: Fair Treatment or Instructions: Discharge home [after recovery per ASU criteria]. Diet as tolerated, when fully awake advance as tolerated. Activities within moderation encouraged. Follow up in my office by appointment in about [1 week]. Call for appointment. Leave wounds [covered], [keep clean and dry, until office visit in 1 week]. Hold of on school/work [until evaluation in office]. Meds per med rec. May shower [in 48 hrs], [try to keep operated area as dry as possible]. Referrals: KING LISA DPM [Primary Care Provider] - Discharge Diet: Other (Comments) - Diabetic Respiratory Treatments at Home: Deep Breathing/Coughing - . Discharge Activity: Activity As Tolerated Report the Following to Your Physician Immediately: Shortness of Breath, Unusual Bleeding
[2018-07-02 16:28] VITALS: BP 168/88
--- NOTE | 2018-07-02 17:03 | Operative Report ---
Operative Report DATE OF SURGERY: 07/02/18 PREOPERATIVE DIAGNOSIS: Infected foot ulcer. 2. Renal transplant. POSTOPERATIVE DIAGNOSIS: Infected foot ulcer. 2. Renal transplant. OPERATION: 1. Ultrasound evaluation of both right and left internal jugular veins. 2. Insertion of tunneled PICC line via real time access in right internal jugular vein. 3. Angiogram and interpretation. SURGEON: JAMA RANGEL ERGONOMICS TECHNICIAN: None. ANESTHESIA: Moderate Sedation TISSUE REMOVED OR ALTERED: Not applicable. COMPLICATIONS: None. ESTIMATED BLOOD LOSS: 5 mL. 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 Of a patent left internal jugular vein. Of a stent in the left subclavian vein. A probable stenosis in the left innominate vein. Satisfactory access and positioning of the PICC line with the exception of a tendency to curl in the upper superior vena cava. This was resistant to replacement with a Glidewire. It easily went down into the right atrium but flipped back up into the superior vena cava. There is easy egress of blood and ingress of heparinized and the findings were judged adequate for the 6 weeks of antibiotic therapy which he requires. The findings were discussed with the patient and his and they were given a snapshot of the angiographic findings. PROCEDURE: After obtaining informed consent, the patient was taken to the [Plant Utilities Engineer] and positioned supine. The right and left internal jugular veins were evaluated on the ultrasound. The findings as dictated. The [left neck] and chest were prepared with alcohol only and draped out with sterile linen. After the " universal timeout", in which it was verified that the patient continued to receive antibiotic, the procedure commenced. A steriley sheathed ultrasound probe was used to evaluate the [left internal jugular] vein. Local anesthesia was infiltrated adjacent to the probe. Access into the [left internal jugular] vein was obtained using a micropuncture needle , followed by micropuncture wire and then a micropuncture catheter. This was followed by introduction of a 0.035 guidewire the tip of which was placed down into the inferior vena cava. Considerable challenge was noted getting into the vein which tended to be firm. The catheter also went up into the internal jugular. For this reason an angiogram was done with the findings as dictated. After considerable manipulation the 0.035 Glidewire was positioned with the tip well down in the right atrium.. A cuffed PICC catheter was now positioned over the chest and an exit site marked and locally anesthetized ,the catheter was placed between the 2 incisions. The catheter was tailored to an appropriate length. Proximally, the catheter was now positioned using a peel-away sheath, after dilation. It was placed over the Glidewire for support. Easy ingress of heparinized solution and egress of blood obtained through both ports. A completion angiogram was not done in respect to his existing, functioning. The findings were as dictated. The neck incision was now closed using interrupted 3 -0 PDS to the subcutaneous tissues, the catheter was anchored at the exit site using 3-0 PDS. A Biopatch device was now placed adjacent to the catheter. Dressings were applied and the procedure concluded. Exposure time: [0.1 minutes]. Exposure: 3.65 mGy. Contrast amount: [5 mL] of [id number] low osmolality. Copies of the dictated operative report for Dr. Jama Bragg MD.concluded. Copies of the dictated operative report for Dr. Jama Bragg MD.
== END 2018-07-02 16:19 | disposition home or self-care (01) ==
LOC: CCL 12:21
PROVIDERS: ATTEND Surgery
DX: E11.621 Type 2 diabetes mellitus with foot ulcer (principal); L97.512 Non-pressure chronic ulcer of other part of right foot with fat layer exposed; E11.22 Type 2 diabetes mellitus with diabetic chronic kidney disease; N18.6 End stage renal disease; I50.9 Heart failure, unspecified; Z01.818 Encounter for other preprocedural examination; Z88.8 Allergy status to other drugs, medicaments and biological substances; Z88.6 Allergy status to analgesic agent
CPT/HCPCS: 36415; 85027; 80048; 36558; 76937; 77001; C1752; Q9967; C1769; J2250; A9270 ×2; J3010; J3490; J1644

== ENCOUNTER → 2018-07-09 | Outpatient (CLI) | payer MEDICARE ==
--- NOTE | 2018-07-09 08:28 | RADIOLOGY REPORT (SQ) ---
EXAM DESCRIPTION: CHEST PA/LATERAL COMPLETED DATE/TIME: 07/09/2018 7:55 am REASON FOR STUDY: PNEUMOTHORAX, UNSPECIFIED COMPARISON: 07/07/2016 and 08/17/2015. CT chest dated 02/01/2014. EXAM PARAMETERS: NUMBER OF VIEWS: two views TECHNIQUE: Digital Frontal and Lateral radiographic views of the chest acquired. RADIATION DOSE: NA LIMITATIONS: none FINDINGS: LUNGS AND PLEURA: Stable nodule in the left lower lobe. No new nodules or masses. No inf iltrates. No pleural effusion. MEDIASTINUM AND HILAR STRUCTURES: No masses or contour abnormalities. HEART AND VASCULAR STRUCTURES: Heart normal size. No evidence for failure. BONES: No acute findings. Degenerative changes in the spine. HARDWARE: Central line. Left subclavian stent. OTHER: No other significant finding. IMPRESSION: STABLE APPEARANCE OF THE CHEST. NO CHANGE IN THE LEFT LOWER LOBE NODULE. NO ACUTE RADI OGRAPHIC FINDING IN THE CHEST. TECHNICAL DOCUMENTATION: JOB ID: [id number] [employer]- All Rights Reserved Reading location - IP/workstation name: [email or web address]-[email or web address]
== END ==
LOC: WC 07:35
PROVIDERS: ATTEND Preventive Medicine Undersea and Hyperbaric Medicine
DX: J93.9 Pneumothorax, unspecified (principal)
CPT/HCPCS: 71046

== ENCOUNTER → 2018-07-18 | Outpatient (CLI) | payer MEDICARE, MEDICAID ==
--- NOTE | 2018-07-18 12:53 | RADIOLOGY REPORT (SQ) ---
EXAM DESCRIPTION: FOOT RIGHT COMPLETE COMPLETED DATE/TIME: 07/18/2018 12:38 pm REASON FOR STUDY: NON PRESSURE ULCER OF OTHER PART OF RT FOOT WITH NECROSIS OF BONE E11.621 TYPE 2 DIABETES MELLITUS WITH FOOT ULCER L97.514 NON-PRS CHRONIC ULCER OTH PRT RIGHT FOOT W NECROSIS COMPARISON: 06/11/2018 NUMBER OF VIEWS: Three views. TECHNIQUE: AP, lateral and oblique radiographic images acquired of the right foot. LIMITATIONS: None. FINDINGS: MINERALIZATION: Normal. BONES: There is worsening destruction at the level of the IP joint of the 1st digit and the PIP joint of the seconds digit. Further is torsion of bone. JOINTS: No effusions. SOFT TISSUES: There appears to be a soft tissue defect along the medial aspect of the great toe. OTHER: No other significant finding. IMPRESSION: Progressive osteomyelitis. TECHNICAL DOCUMENTATION: JOB ID: [id number] [employer]- All Rights Reserved Reading location - IP/workstation name: [email or web address]
== END ==
LOC: WC 11:41
PROVIDERS: ATTEND Preventive Medicine Undersea and Hyperbaric Medicine
DX: E11.621 Type 2 diabetes mellitus with foot ulcer (principal); L97.514 Non-pressure chronic ulcer of other part of right foot with necrosis of bone

== ENCOUNTER 2018-07-20 15:19 | Emergency (ER) | payer MEDICARE ==
[2018-07-20] MEDS ORDERED: ALTEPLASE INJ 2 MG VIAL (CATH CLEARANCE) IV ONE ×2 (16:17→18:32)
--- NOTE | 2018-07-20 16:18 | ER Document Report ---
ED Medical Screen (RME) - General Chief Complaint: Medical Complaint Stated Complaint: MEDICAL COMPLAINT Time Seen by Provider: 07/20/18 16:17 Mode of Arrival: Ambulatory Information source: Patient Notes: Patient is a 58-year-old male who presents to the emergency department with complaint of clogged PICC line. Patient reports PICC line was placed by Dr. Radames Bragg is being used for continuous IV antibiotic therapy. Patient reports the line has been clogged since this morning. Patient denies any other symptoms or concerns today. I have greeted and performed a rapid initial assessment of this patient. A comprehensive ED assessment and evaluation of the patient, analysis of test results and completion of the medical decision making process will be conducted by additional ED providers. Dictation of this chart was performed using voice recognition software; therefore, there may be some unintended grammatical errors. TRAVEL OUTSIDE OF THE [place] IN LAST 30 DAYS: No - Related Data Allergies/Adverse Reactions: rivaroxaban [From Xarelto] Allergy (Severe, Verified 07/02/18 13:07) HEMORRHAGING ibuprofen Allergy (Mild, Verified 07/02/18 13:07) because of kidneys iodine [Iodine] Allergy (Mild, Verified 07/02/18 13:07) Hives ketorolac tromethamine [From Toradol] Adverse Reaction (Severe, Verified 13:07) Vomiting warfarin sodium [From Coumadin] Adverse Reaction (Severe, Verified 07/02/18 13: 07) weakness enoxaparin sodium [From Lovenox] Adverse Reaction (Intermediate, Verified 13:07) falls promethazine HCl [From Phenergan] Adverse Reaction (Unknown, Verified 07/02/18 13:07) Vomiting chlorohexidine Allergy (Mild, Uncoded 07/02/18 13:07) Hives Past Medical History - Past Medical History Cardiac Medical History: Reports: Hx Congestive Heart Failure, Hx Hypercholesterolemia Denies: Hx Coronary Artery Disease, Hx Heart Attack, Hx Hypertension Pulmonary Medical History: Reports: Hx Bronchitis - HX. BRONCHITIS, Hx Pneumonia , Hx Tuberculosis - as child Denies: Hx Asthma, Hx COPD Neurological Medical History: Denies: Hx Cerebrovascular Accident, Hx Seizures Endocrine Medical History: Reports: Hx Diabetes Mellitus Type 1, Hx Diabetes Mellitus Type 2 - IDDM Renal/ Medical History: Reports: Hx End Stage Renal Disease, Hx Hemodialysis - home dialysis, Hx Kidney Stones. Denies: Hx Peritoneal Dialysis GI Medical History: Reports: Hx Gastroesophageal Reflux Disease Musculoskeltal Medical History: Reports Hx Arthritis - ALL OVER Psychiatric Medical History: Reports: Hx Depression Past Surgical History: Reports: Hx Abdominal Surgery - GASTRIC SLEEVE PROCEEDURE January 2013, Hx Cardiac Catheterization, Hx Kidney (Renal Surgery) - transplant, Hx Orthopedic Surgery - rt knee, rt hand rt elbow cataract blood clot left leg 2004, Hx Vascular Surgery - stents in left leg - Immunizations Hx Diphtheria, Pertussis, Tetanus Vaccination: Yes History of Influenza Vaccine for 06/2017 - 11/2017 Season: No Influenza Administration Date for 06/2017 - 11/2017 Season: 06/04/17 Physical Exam - Vital signs Vitals: Temp Pulse Resp BP Pulse Ox 98.0 F 77 22 H 177/78 H 99 07/20/18 15:37 07/20/18 15:37 07/20/18 15:37 07/20/18 15:37 07/20/18 15:37 Course - Vital Signs Vital signs: Temp Pulse Resp BP Pulse Ox 98.0 F 77 22 H 177/78 H 99 07/20/18 15:37 07/20/18 15:37 07/20/18 15:37 07/20/18 15:37 07/20/18 15:37 Doctor's Discharge - Discharge Referrals: KING LISA DPM [Primary Care Provider] - Follow up as needed
--- NOTE | 2018-07-20 18:53 | ER Document Report ---
ED General - General Mode of Arrival: Ambulatory TRAVEL OUTSIDE OF THE [place] IN LAST 30 DAYS: No - General Chief Complaint: Medical Complaint Stated Complaint: MEDICAL COMPLAINT Time Seen by Provider: 07/20/18 16:17 Notes: Patient is a 58-year-old male who presents to the emergency department with complaint of clogged PICC line. Patient reports PICC line was placed by Dr. Radames Dixon is being used for continuous IV antibiotic therapy. Patient reports the line has been clogged since this morning. Patient denies any other symptoms or concerns today. (JAZ NDIAYE) - Related Data Allergies/Adverse Reactions: rivaroxaban [From Xarelto] Allergy (Severe, Verified 07/20/18 20:17) HEMORRHAGING ibuprofen Allergy (Mild, Verified 07/20/18 20:17) because of kidneys iodine [Iodine] Allergy (Mild, Verified 07/20/18 20:17) Hives ketorolac tromethamine [From Toradol] Adverse Reaction (Severe, Verified 20:17) Vomiting warfarin sodium [From Coumadin] Adverse Reaction (Severe, Verified 07/20/18 20: 17) weakness enoxaparin sodium [From Lovenox] Adverse Reaction (Intermediate, Verified 20:17) falls promethazine HCl [From Phenergan] Adverse Reaction (Unknown, Verified 07/20/18 20:17) Vomiting chlorohexidine Allergy (Mild, Uncoded 07/20/18 20:17) Hives Past Medical History - General Information source: Patient - Social History Smoking Status: Never Smoker Family History: Reviewed & Not Pertinent Patient has suicidal ideation: No Patient has homicidal ideation: No - Past Medical History Cardiac Medical History: Reports: Hx Congestive Heart Failure, Hx Hypercholesterolemia Denies: Hx Coronary Artery Disease, Hx Heart Attack, Hx Hypertension Pulmonary Medical History: Reports: Hx Bronchitis - HX. BRONCHITIS, Hx Pneumonia , Hx Tuberculosis - as child Denies: Hx Asthma, Hx COPD Neurological Medical History: Denies: Hx Cerebrovascular Accident, Hx Seizures Endocrine Medical History: Reports: Hx Diabetes Mellitus Type 1, Hx Diabetes Mellitus Type 2 - IDDM Renal/ Medical History: Reports: Hx End Stage Renal Disease, Hx Hemodialysis - home dialysis, Hx Kidney Stones. Denies: Hx Peritoneal Dialysis GI Medical History: Reports: Hx Gastroesophageal Reflux Disease Musculoskeletal Medical History: Reports Hx Arthritis - ALL OVER Psychiatric Medical History: Reports: Hx Depression Past Surgical History: Reports: Hx Abdominal Surgery - GASTRIC SLEEVE PROCEEDURE January 2013, Hx Cardiac Catheterization, Hx Kidney (Renal Surgery) - transplant, Hx Orthopedic Surgery - rt knee, rt hand rt elbow cataract blood clot left leg 2004, Hx Vascular Surgery - stents in left leg - Immunizations Hx Diphtheria, Pertussis, Tetanus Vaccination: Yes Hx Pneumococcal Vaccination: 09/04/17 Review of Systems - Review of Systems Constitutional: No symptoms reported EENT: No symptoms reported Cardiovascular: No symptoms reported Respiratory: No symptoms reported Gastrointestinal: No symptoms reported Genitourinary: No symptoms reported Male Genitourinary: No symptoms reported Musculoskeletal: No symptoms reported Skin: No symptoms reported Hematologic/Lymphatic: No symptoms reported Neurological/Psychological: No symptoms reported Physical Exam - Vital signs Vitals: Temp Pulse Resp BP Pulse Ox 98.0 F 77 22 H 177/78 H 99 07/20/18 15:37 07/20/18 15:37 07/20/18 15:37 07/20/18 15:37 07/20/18 15:37 - Notes Notes: PHYSICAL EXAMINATION: GENERAL: Well-appearing, well-nourished and in no acute distress. HEAD: Atraumatic, normocephalic. EYES: Pupils equal round extraocular movements intact, conjunctiva are normal. ENT: Nares patent NECK: Normal range of motion LUNGS: No respiratory distress Musculoskeletal: Normal range of motion NEUROLOGICAL: Normal speech, normal gait. PSYCH: Normal mood, normal affect. SKIN: Warm, Dry, normal turgor, no rashes or lesions noted. PICC line to left chest wall. (JAZ NDIAYE) Course - Re-evaluation Re-evalutation: Attempted to flush PICC line with normal saline. Line does flush but it does take more pressure than it should. Will order Cathflo and reevaluate. Nursing staff instilled 2 mL's of cath flow to PICC line, waited 30 minutes, withdrew Cathflo and still unable to appropriately flush PICC line. Additional 2 mL's of Cathflo ordered, nursing staff to instill and leave for 60 minutes. Handoff given to Annemarie Malcolm NP. (JAZ NDIAYE) 07/20/18 21:[address] Tabor regarding discharge plan of care for patient. Agrees with plan to insert peripheral line but only recommends using this for 2 days and then this line will need to be discontinued (MARGARET MALCOLM) - Vital Signs Vital signs: Temp Pulse Resp BP Pulse Ox 97.6 F 80 20 167/70 H 99 07/20/18 19:40 07/20/18 19:40 07/20/18 19:40 07/20/18 19:40 07/20/18 19:40 Discharge - Discharge Clinical Impression: Occluded PICC line Qualifiers: Encounter type: initial encounter Qualified Code(s): T82.898A - Other specified complication of vascular prosthetic devices, implants and grafts, initial encounter Condition: Stable Disposition: HOME, SELF-CARE Additional Instructions: Your PICC line continues to be clogged. Please use peripheral IV for your antibiotics. This IV is only good for 2 days and then will need to be removed. Follow-up with Dr. Dixon, your quality internship, or your primary doctor on Monday to discuss plan for continued IV access for your antibiotics. If you cannot get in to see your doctor on Monday you can return to the ER. Follow-up with Dr. Dixon regarding your PICC line. Referrals: KING LISA DPM [Primary Care Provider] - 07/23/18 JAMA DIXON MD [ACTIVE STAFF] - 07/23/18
[2018-07-20 21:30] VITALS: BP 172/68
== END 2018-07-20 21:30 | disposition home or self-care (01) ==
LOC: ER 15:19
DX: T82.898A Other specified complication of vascular prosthetic devices, implants and grafts, initial encounter (principal); Y82.8 Other medical devices associated with adverse incidents; Z88.8 Allergy status to other drugs, medicaments and biological substances; Z88.6 Allergy status to analgesic agent; E11.9 Type 2 diabetes mellitus without complications; Z98.84 Bariatric surgery status; Z94.0 Kidney transplant status
CPT/HCPCS: 36592; 99283; J2997

== ENCOUNTER 2018-07-23 11:01 | Day surgery (SDC) | payer MEDICARE, MEDICAID ==
[~2018-07-23 11:01] MED LIST changes: +OXYCODONE-ACETAMINOPHEN 5-325 MG TABLET PO PRN
[2018-07-23] MEDS ORDERED: DIAZEPAM 5 MG TABLET ONE (11:25)
[2018-07-23] MEDS ORDERED: OXYCODONE-ACETAMINOPHEN 5-325 MG TABLET ONE (11:26)
[2018-07-23] MEDS ORDERED: METHYLPREDNISOLONE INJ 125 MG/2 ML SDV ONE (11:27)
[2018-07-23] MEDS ORDERED: FAMOTIDINE INJ/PF 20 MG/2 ML SDV IV ONE (11:29)
[2018-07-23] MEDS ORDERED: DIPHENHYDRAMINE HCL 50 MG/ML VIAL IV ONE (12:00)
[2018-07-23] MEDS ORDERED: ALTEPLASE INJ 2 MG VIAL (CATH CLEARANCE) ONE ×2 (12:10→13:14)
[2018-07-23] MEDS ORDERED: ALTEPLASE INJ 2 MG VIAL (CATH CLEARANCE) INJ ONE (12:15)
[2018-07-23] MEDS ORDERED: MIDAZOLAM 2 MG/2 ML INJ ONE (12:34)
[2018-07-23] MEDS ORDERED: FENTANYL CITRATE INJ/PF 100 MCG/2 ML AMPUL ONE (12:34)
--- NOTE | 2018-07-23 14:17 | PDOC H&P ---
General Chief Complaint: The patient was referred across for troubleshooting of his tunneled PICC line which has stopped working. - Diagnosis (1) Renal transplant recipient Is this a Current Diagnosis?: Yes (2) Diabetic foot ulcer Is this a Current Diagnosis?: Yes (3) Occluded PICC line Is this a Current Diagnosis?: Yes - Current Medications/Allergies Home Medications: Aspirin [Ecotrin] 81 mg PO DAILY 12/23/16 Famotidine 20 mg PO BID 12/23/16 Furosemide [Lasix] 40 mg PO QPM 12/23/16 Furosemide [Lasix] 80 mg PO QAM 12/23/16 Insulin Aspart [Novolog Flexpen] See Protocol SQ TID 12/23/16 Insulin Detemir [Levemir Flextouch] 50 unit SQ QHS 12/23/16 Mycophenolate Sodium [Myfortic 180 mg Tablet.dr] 360 mg PO BID 12/23/16 Prednisone 5 mg PO DAILY 12/23/16 Sennosides/Docusate Sodium [Docusate Sodium-Senna Tablet] 1 each PO BID Tacrolimus [Envarsus Xr] 15 mg PO QAM 12/23/16 Tamsulosin HCl 0.4 mg PO DAILY 12/23/16 Rosuvastatin Calcium 5 mg PO QHS 07/02/18 Allergies/Adverse Reactions: rivaroxaban [From Xarelto] Allergy (Severe, Verified 07/20/18 20:17) HEMORRHAGING ibuprofen Allergy (Mild, Verified 07/20/18 20:17) because of kidneys iodine [Iodine] Allergy (Mild, Verified 07/20/18 20:17) Hives ketorolac tromethamine [From Toradol] Adverse Reaction (Severe, Verified 20:17) Vomiting warfarin sodium [From Coumadin] Adverse Reaction (Severe, Verified 07/20/18 20: 17) weakness enoxaparin sodium [From Lovenox] Adverse Reaction (Intermediate, Verified 20:17) falls promethazine HCl [From Phenergan] Adverse Reaction (Unknown, Verified 07/20/18 20:17) Vomiting chlorohexidine Allergy (Mild, Uncoded 07/20/18 20:17) Hives Past Medical History Cardiac Medical History: Reports: Congestive Heart Failure, Hyperlipidema Denies: Coronary Artery Disease, Myocardial Infarction, Hypertension Pulmonary Medical History: Reports: Bronchitis - HX. BRONCHITIS, Pneumonia, Tuberculosis - as child Denies: Asthma, Chronic Obstructive Pulmonary Disease (COPD) Neurological Medical History: Denies: Seizures Endocrine Medical History: Reports: Diabetes Mellitus Type 1, Diabetes Mellitus Type 2 - IDDM Renal/ Medical History: Reports: End Stage Renal Disease GI Medical History: Reports: Gastroesophageal Reflux Disease Musculoskeltal Medical History: Reports: Arthritis - ALL OVER Psychiatric Medical History: Reports: Depression Hematology: Reports: Anemia Past Surgical History Past Surgical History: Reports: Cardiac Catheterization, Orthopedic Surgery - rt knee, rt hand rt elbow cataract blood clot left leg 2004, Vascular Surgery - stents in left leg Family History Family History: Reviewed & Not Pertinent Parental Family History Reviewed: No Children Family History Reviewed: No Sibling(s) Family History Reviewed.: No Social History Smoking Status: Never Smoker Frequency of Alcohol Use: None Hx Recreational Drug Use: No Hx Prescription Drug Abuse: No Physical Exam Vital Signs: Temp Pulse Resp BP Pulse Ox 97.7 F 71 18 186/100 H 100 07/23/18 12:07 07/23/18 12:07 07/23/18 12:07 07/23/18 12:07 07/23/18 12:07 Intake & Output 07/22/18 07/23/18 07/24/18 06:59 06:59 06:59 Weight 165 kg Additional comments: Constitutional: Well-developed well-nourished -Czech gentleman, much increased body mass index. No apparent acute distress. Eyes: Mucous membranes pink and moist, pupils equal and reactive to light. Conjunctiva normal. Cornea normal. ENT: Hearing grossly normal. External pinna normal to inspection. Teeth intact. Tongue normal to inspection. Chest: Left-sided tunneled PICC line noted. Respiratory breath sounds are present bilaterally, normal. Normal respiratory effort. Psychiatric: Judgment, memory, insight seem normal. Mood is pleasant and appropriate. Extremities: Upper extremities show normal range of movement. Pulses present noted to the radial arteries. Capillary refill normal. No cyanosis noted. No muscle wasting noted. Impression/Plan Plan: The patient requires of several weeks of IV antibiotic. Re establishment of flow through the PICC line is therefore indicated and he this is to be done in the [employer] with options for replacement or repositioning. The risks benefits expected outcome and alternatives are familiar to the patient and he wishes to proceed.
--- NOTE | 2018-07-23 14:19 | Discharge Summary ---
Discharge Summary (SDC) - Discharge Final Diagnosis: #1 malfunctioning PICC catheter. 2. Diabetic foot infection. 3. Renal transplant recipient. 4. Diabetes mellitus type 2. 5. Hypertension. Date of Surgery: 07/23/18 Discharge Date: 07/23/18 Condition: Fair Treatment or Instructions: Discharge home [after recovery per ASU criteria]. Diet diabetic,as tolerated, when fully awake advance as tolerated. Activities within moderation encouraged. Follow up in my office by appointment in about [1 week]. Call for appointment. Leave wounds [covered], [keep clean and dry, until office visit in 1 week]. Hold of on school/work [until evaluation in office]. Meds per med rec. May shower [in 48 hrs], [try to keep operated area as dry as possible]. Referrals: KORINA RDZ MD [Primary Care Provider] - Discharge Diet: Other (Comments) - ADA/renal. Respiratory Treatments at Home: Deep Breathing/Coughing Discharge Activity: Activity As Tolerated Report the Following to Your Physician Immediately: Shortness of Breath, Unusual Bleeding
--- NOTE | 2018-07-23 14:28 | Operative Report ---
Operative Report DATE OF SURGERY: 07/23/18 PREOPERATIVE DIAGNOSIS: #1 malfunctioning PICC catheter. 2. Diabetic foot infection. 3. Renal transplant recipient. 4. Diabetes mellitus type 2. 5. Hypertension. POSTOPERATIVE DIAGNOSIS: #1 malfunctioning PICC catheter. 2. Diabetic foot infection. 3. Renal transplant recipient. 4. Diabetes mellitus type 2. 5. Hypertension. OPERATION: Fluoroscopy. Cut down on existing catheter. 3. Repositioning of existing catheter. SURGEON: JAMA RANGEL LEGAL FILE CLERK: None. ANESTHESIA: Moderate Sedation TISSUE REMOVED OR ALTERED: Not applicable. COMPLICATIONS: None. ESTIMATED BLOOD LOSS: 5 mL. INTRAOPERATIVE FINDINGS: Of a left internal jugular based tunneled PICC line. Nonfunctioning due to a sharp kink in the neck. Also because of a sharp angulation in the superior vena cava. Both of these wounds were corrected and the final result is of the tip of the catheter well down in the right atrial pool. Of the angulation of the neck much improved with a smooth or path through the subcutaneous tissues and into the internal jugular vein. There still remains a tendency for the catheter kink which is reduced with the patient turns his head towards the left. I believe this will be sufficient to allow the catheter to be used for the next 3 weeks especially with the above maneuvers. Otherwise we will need to replace it, possibly through the right internal jugular PROCEDURE: After obtaining informed consent, the patient was taken to the [Copying Machine Repairer] and positioned supine. The left neck and chest were prepared with alcohol and draped out with sterile linen. After the " universal timeout", in which it was verified that the patient continued to receive antibiotic, the procedure commenced. The catheter was evaluated under fluoroscopy. The finding of the sharp kink in the neck and of the angulation in the superior vena cava were noted. It was not possible to withdraw blood. A 0.35 Glidewire was inserted through the catheter and this allowed it to straighten and to go well down into the right atrium. This persisted on removal of the guidewire but unfortunately the kink in the neck persisted. An incision was therefore made at the previous incision at the neck extending down was for about 1.5 cm. This was done after obtaining local anesthesia. Dissection proceeded down to the catheter. The catheter was gently dissected out. This was for this facilitated by placing the Glidewire back in. The tissues inferior to the band and the catheter were now dissected free bluntly allowing it to pursue a more horizontal tract. The tissues above it were now sutured using interrupted 6 3-0 PDS. The system was now interrogated fluoroscopically before and after removing the Glidewire. It was much improved. The tip remains down in the atrium and the tract through the neck was much more horizontal. Nevertheless there was a distinct tendency to kink particularly when the patient placed his head towards the right and unkinking towards the left. At this point I believe this is the maximal benefit we will get through this technique. That result was therefore accepted particularly as there was easy egress of blood and ingress of motion. The neck incision was now closed using interrupted 3-0 PDS to the subcutaneous tissues, A Biopatch device was now placed adjacent to the catheter. Dressings were applied and the procedure concluded. Copies of the dictated operative report for Dr. Jama Bragg MD.concluded. Copies of the dictated operative report for Dr. Jama Bragg MD.
[2018-07-23 16:21] VITALS: BP 170/104
== END 2018-07-23 15:20 | disposition home or self-care (01) ==
LOC: CCL 11:01
PROVIDERS: ATTEND Surgery
DX: T82.49XA Other complication of vascular dialysis catheter, initial encounter (principal); Y83.8 Other surgical procedures as the cause of abnormal reaction of the patient, or of later complication, without mention of misadventure at the time of the procedure; E10.621 Type 1 diabetes mellitus with foot ulcer; I13.2 Hypertensive heart and chronic kidney disease with heart failure and with stage 5 chronic kidney disease, or end stage renal disease; I50.9 Heart failure, unspecified; N18.6 End stage renal disease; E10.22 Type 1 diabetes mellitus with diabetic chronic kidney disease; Z99.2 Dependence on renal dialysis; Z94.0 Kidney transplant status; M10.9 Gout, unspecified; M19.90 Unspecified osteoarthritis, unspecified site; E66.9 Obesity, unspecified; K43.2 Incisional hernia without obstruction or gangrene; E78.5 Hyperlipidemia, unspecified; K21.9 Gastro-esophageal reflux disease without esophagitis; D64.9 Anemia, unspecified; Z79.891 Long term (current) use of opiate analgesic; Z79.4 Long term (current) use of insulin; Z79.899 Other long term (current) drug therapy; Z79.82 Long term (current) use of aspirin; Z68.39 Body mass index [BMI] 39.0-39.9, adult; Z86.14 Personal history of Methicillin resistant Staphylococcus aureus infection; Z88.6 Allergy status to analgesic agent; Z88.8 Allergy status to other drugs, medicaments and biological substances
CPT/HCPCS: 36597; C1769; J2997; J2250; A9270 ×2; J3010; J2930; S0028

== ENCOUNTER → 2018-08-22 | Outpatient (CLI) | payer MEDICARE, MEDICAID ==
--- NOTE | 2018-08-22 11:17 | RADIOLOGY REPORT (SQ) ---
EXAM DESCRIPTION: FOOT RIGHT COMPLETE COMPLETED DATE/TIME: 08/22/2018 11:04 am REASON FOR STUDY: NON-PRS CHRONIC ULCER OTH PRT RIGHT FOOT W NECROSIS OF BONE L97.514 NON-PRS CHRON IC ULCER OTH PRT RIGHT FOOT W NECROSIS E11.621 TYPE 2 DIABETES MELLITUS WITH FOOT ULCER COMPARISON: [id number] NUMBER OF VIEWS: Three views. TECHNIQUE: AP, lateral and oblique radiographic images acquired of the right foot. LIMITATIONS: None. FINDINGS: MINERALIZATION: Normal. BONES: Gross loose stable destructive osseous change at the 1st interphalangeal joint compared to jordyn or. Additional destructive changes at the 2nd proximal interphalangeal joint, stable. No evidence o f new osseous abnormality. No evidence of fracture or dislocation. Degenerative change with mild mi dfoot osteophytosis. Small plantar calcaneal enthesophyte. JOINTS: No effusions. SOFT TISSUES: Soft tissue swelling and heterotopic ossification about the distal 1st digit, stable. OTHER: No other significant finding. IMPRESSION: Grossly stable appearance of the destructive changes at the 1st interphalangeal joint an d 2nd proximal interphalangeal joint compatible with osteomyelitis. No evidence of new bony abnormal ity. TECHNICAL DOCUMENTATION: JOB ID: [id number] [employer]- All Rights Reserved Reading location - IP/workstation name: [email or web address]
== END ==
LOC: WC 10:32
PROVIDERS: ATTEND Preventive Medicine Undersea and Hyperbaric Medicine
DX: E11.621 Type 2 diabetes mellitus with foot ulcer (principal); L97.514 Non-pressure chronic ulcer of other part of right foot with necrosis of bone

== ENCOUNTER → 2018-09-20 | Day surgery (SDC) | payer MEDICAID, MEDICARE ==
[~2018-09-20] MED LIST changes: +BUPIVACAINE HCL 0.5 % INJ/PF 30 ML SDV ONE; -DIAZEPAM 5 MG TABLET PO PRN; +LIDOCAINE 2% INJ (20 MG/ML) 20 ML MDV ONE; -OXYCODONE-ACETAMINOPHEN 5-325 MG TABLET PO PRN
--- NOTE | 2018-09-20 08:12 | Operative Report ---
PROCEDURE: KNEE RADIOFREQUENCY Right under ultrasound guidance Preoperative Diagnosis: Right knee osteoarthritis Postoperative Diagnosis: Right knee osteoarthritis 1. Superolateral genicular branch from the vastus lateralis 2. Superomedial genicular branch from the vastus medialis 3. Inferomedial genicular branch from the saphenous nerve 4. Medial retinacular branch from the vastus intermedius DATE OF PROCEDURE: September 20, 2018 ANESTHESIA: Local anesthesia COMPLICATIONS: None reported PROCEDURE IN DETAIL: Hx/PE/meds/allergies/applicable labs reviewed. No changes and no contraindications were found. Full description of the procedure was provided including benefits as well as possible complications including transient increased pain, stomach irritation, mood alteration, transient weakness or parasthesias as well as more serious nerve injury, bleeding, infection or allergic reaction. Informed consent was obtained and documented. The patient was brought to the procedure room and placed on the exam table in a comfortable supine position. The place for needle placement was obtained by manual palpation with ultrasound confirmation. The sterile field was prepared by chloroprep and sterile drapes. Local anesthesia superficial and deep was provided by local infiltration of 2% lidocaine. A 17g 50 mm radiofrequency introducer needle with a 4 mm active tip was placed overlying the right knee joint and using ultrasound guidance the needle was advanced to a bony endpoint on the superiolateral portion of the femoral condyle of the right knee. A second needle was advanced to a bony endpoint on the superiomedial portion of the femoral condyle. A third needle was then placed over the inferiomedial portion of the tibial condyle until a bony endpoint was met. 4th needle placed 3mm above the patella with the tip in contact with the Medial retinacular branch from the vastus intermedius. Attempted aspiration yielded no blood. Transverse ultrasound views showed all the needles at 50% depth of the femur and tibia. Motor stimulation was tested at 2.0 volts with no leg movement. Images were saved in AP and lateral. A mixture consisting of 0.5% bupivacaine was slowly injected. Then a radiofrequency ablation of each of the geniculate nerves were done at 80 degrees Celsius for 2 minutes and 30 seconds each. The needles were withdrawn. The patient tolerated the procedure well. After observation the patient was discharged with instructions and follow up. They were also provided contact information to call regarding any concerning symptoms or questions. IMPRESSION: 1. Successful geniculate right knee radiofrequency ablation was performed. 2. The patient was given prescription of home medicines. 3. RTC in 1-2 week(s).
== END ==
LOC: RAD 08:08
PROVIDERS: ATTEND Family Medicine
DX: M17.11 Unilateral primary osteoarthritis, right knee (principal)
CPT/HCPCS: 64640 ×4; J3490 ×2

== ENCOUNTER → 2018-10-10 | Outpatient (CLI) | payer MEDICARE, MEDICAID ==
[2018-10-10 17:57] LABS: ABSOLUTE EOSINOPHILS # (AUTO) 0.1 10^3/uL (0.0-0.6); ABSOLUTE LYMPHOCYTES (AUTO) 1.2 10^3/uL (0.5-4.7); ABSOLUTE MONOCYTES (AUTO) 0.4 10^3/uL (0.1-1.4); ABSOLUTE NEUT (AUTO) 2.6 10^3/uL (1.7-8.2); BASOPHILS % (AUTO) 0.3 % (0-2); EOSINOPHILS % (AUTO) 1.2 % (0-6); HEMATOCRIT 36.1 % (37.9-51.0); HEMOGLOBIN 11.8 g/dL (13.5-17.0); LYMPHOCYTES % (AUTO) 28.3 % (13-45); MEAN CORPUSCULAR HEMOGLOBIN 25.1 pg (27.0-33.4); MEAN CORPUSCULAR HGB CONC 32.6 g/dL (32.0-36.0); MEAN CORPUSCULAR VOLUME 77 fl (80-97); MONOCYTES % (AUTO) 9.1 % (3-13); PLATELET COUNT 135 10^3/uL (150-450); SEGMENTED NEUTROPHILS % (AUTO) 61.1 % (42-78); TOTAL CELLS COUNTED % (AUTO) 100 %; WHITE BLOOD COUNT 4.3 10^3/uL (4.0-10.5)
[2018-10-10 18:20] LABS: ALANINE AMINOTRANSFERASE 30 U/L (21-72); ALBUMIN 4.1 g/dL (3.5-5.0); ALKALINE PHOSPHATASE 88 U/L (38-126); ANION GAP 8 (5-19); ASPARTATE AMINO TRANSFERASE 20 U/L (17-59); BILIRUBIN,DIRECT 0.1 mg/dL (0.0-0.4); BILIRUBIN,TOTAL 0.7 mg/dL (0.2-1.3); BLOOD UREA NITROGEN 20 mg/dL (7-20); C-REACTIVE PROTEIN 5.4 mg/L (<10.0); CALCIUM 9.5 mg/dL (8.4-10.2); CARBON DIOXIDE 30 mmol/L (22-30); CHLORIDE 107 mmol/L (98-107); GLUCOSE 101 mg/dL (75-110); POTASSIUM 3.9 mmol/L (3.6-5.0); SODIUM 145.1 mmol/L (137-145); TOTAL PROTEIN 6.7 g/dL (6.3-8.2)
[2018-10-10 18:41] LABS: ERYTHROCYTE SEDIMENTATION RATE 18 mm/hr (0-20)
== END ==
LOC: OD 16:23
PROVIDERS: ATTEND Nurse Practitioner
DX: E11.621 Type 2 diabetes mellitus with foot ulcer (principal); L97.512 Non-pressure chronic ulcer of other part of right foot with fat layer exposed
CPT/HCPCS: 36415; 80053; 83036; 85025; 85652; 86140

== ENCOUNTER → 2018-10-15 | Outpatient (CLI) | payer MEDICARE, MEDICAID ==
--- NOTE | 2018-10-15 11:17 | RADIOLOGY REPORT (SQ) ---
EXAM DESCRIPTION: T SPINE AP/LAT COMPLETED DATE/TIME: 10/15/2018 11:03 am REASON FOR STUDY: THORACIC PAIN,LBP M54.6 PAIN IN THORACIC SPINE M54.5 LOW BACK PAIN COMPARISON: 10/14/2015 NUMBER OF VIEWS: Two views. TECHNIQUE: AP and lateral radiographic images acquired of the thoracic spine. LIMITATIONS: None. FINDINGS: MINERALIZATION: Normal. ALIGNMENT: Normal. No scoliosis. VERTEBRAE: No fracture or bone lesion. Maintained height, normal segmentation. DISCS: Mild multilevel disc space narrowing. Prominent anterior bridging osteophytes mid-lower thor acic spine, unchanged finding from the previous examination. HARDWARE: None in the spine. MEDIASTINUM AND SOFT TISSUES: Normal heart size and aortic contour. No soft tissue abnormality. VISUALIZED LUNG MIMS: Clear. OTHER: Degenerative cervical spondylosis involving the mid-lower cervical spine, stable finding. St ents in the vessels in the neck. IMPRESSION: 1. As on the prior study dated 10/14/2015, degenerative thoracic spondylosis. 2. No acute osseous findings. TECHNICAL DOCUMENTATION: JOB ID: [id number] [employer]- All Rights Reserved Reading location - IP/workstation name: [email or web address]
--- NOTE | 2018-10-15 11:23 | RADIOLOGY REPORT (SQ) ---
EXAM DESCRIPTION: LUMBAR SPINE COMPLETE COMPLETED DATE/TIME: 10/15/2018 11:03 am REASON FOR STUDY: THORACIC PAIN,LBP M54.6 PAIN IN THORACIC SPINE M54.5 LOW BACK PAIN COMPARISON: 08/09/2012 NUMBER OF VIEWS: Five views including obliques. TECHNIQUE: AP, lateral, oblique, and sacral radiographic images acquired of the lumbar spine. LIMITATIONS: None. FINDINGS: MINERALIZATION: Normal. SEGMENTATION: Normal. No transitional anatomy. ALIGNMENT: Normal. VERTEBRAE: Maintained height. No fracture or worrisome bone lesion. DISCS: Multilevel disc space narrowing, more pronounced at L3- 4 and L4-L5. Interval moderate to mo derate severe progression of degenerative changes since the previous examination. The disc space bruna rowing at L4-L5 represents a new finding. Mild disc space narrowing at L5-S1. Mildly prominent ante rior osteophytes. POSTERIOR ELEMENTS: Pedicles and facets are intact. Pars defects suggested on the left at L5. HARDWARE: None in the spine. PARASPINAL SOFT TISSUES: Normal. PELVIS: Intact as visualized. No fractures or worrisome bone lesions. SI joints intact. OTHER: No other significant finding. IMPRESSION: 1. Since the previous examination dated 08/09/2012, interval moderate to moderate severe progression of degenerative disc disease at L3-4 and L4-5. The changes at L4-L5 represent a new fin ding. Mild changes are also noted at L5-S1. 2. Pars defect is suggested at L5 on the left. TECHNICAL DOCUMENTATION: JOB ID: [id number] [employer]- All Rights Reserved Reading location - IP/workstation name: [email or web address]
== END ==
LOC: OD 10:11
PROVIDERS: ATTEND Internal Medicine
DX: M47.894 Other spondylosis, thoracic region (principal); M54.5 Low back pain; M51.36 Other intervertebral disc degeneration, lumbar region
CPT/HCPCS: 72070; 72110

== ENCOUNTER → 2018-12-18 | Outpatient (CLI) | payer MEDICARE, MEDICAID ==
[2018-12-18 11:38] LABS: ABSOLUTE LYMPHOCYTES (AUTO) 0.8 10^3/uL (0.5-4.7); ABSOLUTE MONOCYTES (AUTO) 0.3 10^3/uL (0.1-1.4); BASOPHILS % (AUTO) 0.5 % (0-2); EOSINOPHILS % (AUTO) 1.3 % (0-6); HEMATOCRIT 35.2 % (37.9-51.0); HEMOGLOBIN 11.5 g/dL (13.5-17.0); LYMPHOCYTES % (AUTO) 25.5 % (13-45); MEAN CORPUSCULAR HGB CONC 32.6 g/dL (32.0-36.0); MEAN CORPUSCULAR VOLUME 77 fl (80-97); MONOCYTES % (AUTO) 9.2 % (3-13); PLATELET COUNT 120 10^3/uL (150-450); RED CELL DISTRIBUTION WIDTH 18.1 % (11.5-14.0); SEGMENTED NEUTROPHILS % (AUTO) 63.5 % (42-78); TOTAL CELLS COUNTED % (AUTO) 100 %; WHITE BLOOD COUNT 3.1 10^3/uL (4.0-10.5)
[2018-12-18 12:08] LABS: ALANINE AMINOTRANSFERASE 23 U/L (21-72); ALBUMIN 3.5 g/dL (3.5-5.0); ALKALINE PHOSPHATASE 75 U/L (38-126); ASPARTATE AMINO TRANSFERASE 28 U/L (17-59); BILIRUBIN,DIRECT 0.3 mg/dL (0.0-0.4); BILIRUBIN,TOTAL 0.8 mg/dL (0.2-1.3); BLOOD UREA NITROGEN 26 mg/dL (7-20); CALCIUM 9.9 mg/dL (8.4-10.2); GLUCOSE 127 mg/dL (75-110); POTASSIUM 3.9 mmol/L (3.6-5.0); TOTAL PROTEIN 6.6 g/dL (6.3-8.2)
[2018-12-18 12:11] LABS: CARBON DIOXIDE 28 mmol/L (22-30); CHLORIDE 110 mmol/L (98-107)
[2018-12-18 12:13] LABS: C-REACTIVE PROTEIN < 5.0 mg/L (<10.0)
[2018-12-18 12:14] LABS: ANION GAP 4 (5-19)
--- NOTE | 2018-12-18 12:21 | RADIOLOGY REPORT (SQ) ---
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 NUMBER OF VIEWS: Three views. TECHNIQUE: AP, lateral and oblique radiographic images acquired of the right foot. LIMITATIONS: None. FINDINGS: MINERALIZATION: Normal. BONES: There is bone destruction involving the head of the 1st proximal phalanx and the base of the 1 st distal phalanx. There is subluxation of the joint. There is evidence of some bone resorption inv olving the head of the 2nd proximal phalanx and base of the 2nd middle phalanx. There is subluxation of the joint. JOINTS: No effusions. SOFT TISSUES: No soft tissue swelling. No foreign body. OTHER: No other significant finding. IMPRESSION: Cannot exclude osteomyelitis involving the 1st digit. No osteomyelitis is suggested in the 2nd digit. TECHNICAL DOCUMENTATION: JOB ID: [id number] [employer]- All Rights Reserved Reading location - IP/workstation name: [email or web address]
[2018-12-18 12:22] LABS: ERYTHROCYTE SEDIMENTATION RATE 20 mm/hr (0-20)
== END ==
LOC: WC 10:42
PROVIDERS: ATTEND Preventive Medicine Undersea and Hyperbaric Medicine
DX: L97.512 Non-pressure chronic ulcer of other part of right foot with fat layer exposed (principal)
CPT/HCPCS: 36415; 80053; 85025; 85652; 86140

== ENCOUNTER → 2019-02-07 | Day surgery (SDC) | payer MEDICAID, MEDICARE ==
[~2019-02-07] MED LIST changes: +LIDOCAINE 1% INJ-PF (10 MG/ML) 30 ML SDV ONE; -LIDOCAINE 2% INJ (20 MG/ML) 20 ML MDV ONE
--- NOTE | 2019-02-07 09:34 | Operative Report ---
PREOPERATIVE DIAGNOSIS: Spondylolisis without myopathy or radiculopathy M47.818// Lumbar Sacral Spondylolisis without myopathy or radiculopathy M47.817 POSTOPERATIVE DIAGNOSIS:Spondylolisis without myopathy or radiculopathy M47.818// Lumbar Sacral Spondylolisis without myopathy or radiculopathy M47.817 PROCEDURE: 1. Radiofrequency Ablation of bilateral L5 dorsal Ramus 2. Sacroiliac Joint Ablation - Lateral Branches of bilateral S1, S2, S3 DATE OF PROCEDURE: 07 February 2019 ANESTHESIA: Local COMPLICATIONS: None CONSENT: A full description of the procedure was provided including benefits as well as possible complications. All questions were answered and informed consent was given and signed. ASA guidelines for fasting were verified prior to sedation. PROCEDURE IN DETAIL The patient was brought into the fluoroscopy suite and carefully assisted into the prone position on the fluoroscopy table and allowed to adjust to a position of comfort. A grounding pad was placed on the right thigh. The low back and buttocks were widely prepped with a chloraprep solution, allowed to air dry and draped in standard sterile surgical fashion. Local anesthesia was provided by 12 mL of 1 % lidocaine delivered with a 25 g needle. PROCEDURE #1: Radiofrequency Ablation of Dorsal Ramus of bilateral L5. A 17g 100mm radiofrequency introducer needle was placed to the planned anatomic target, guided with intermittent fluoroscopy with a perpendicular approach, to terminally place at the bilateral sacral ala. The stylets were removed and the radiofrequency probes with a 4mm active tip were then inserted. Needle tip position of the probes were verified in the AP, oblique, and lateral views. At each site, the medial branch nerve was stimulated at 2Hz to a maximum of 1- 2volts determined to finalize safe needle and electrode placement. The patient was awake and responsive during this portion of the procedure. Each target was anesthetized with 2mL of 2 % Sensorcaine anesthesia for lesioning and then each target was lesioned at 80 degrees Celsius for 2 minutes and 30 seconds. Tissue impedences were noted to be between 250 and 500 Ohms. PROCEDURE #2: Radiofrequency Ablation of bilateral S1, S2, S3 Lateral Branches Using the AP fluoroscopic view for visualization of the lateral PSFA as defined by the pre-placed 27-gauge Quincke needles, appropriate skin starting positions were defined. Using the PSFA as a "clock-face", the positions were: S1; bilateral = 1 and 5 oclock S2; bilateral = 1 and 5 oclock S3; bilateral = 3 oclock Using fluoroscopic guidance, a 17g introducer needle was inserted sequentially onto the target positions described above until the introducer tip touched the bony surface of the sacrum. The stylet was withdrawn from the introducer and the radiofrequency probe with a 4 mm active tip was fully inserted into the introducer. A lateral view was obtained for standard reference. At each of the targets, needle placement was verified with the use of multi-planar fluoroscopy. The needle tip position was approximately 7 - 10mm lateral to the PSFA as determined by using an Epsilon ruler. At each site, the lateral branch nerve was stimulated at 2 Hz to a maximum of 1- 2 volts determined to finalize safe needle and electrode placement. The patient was awake and responsive during this portion of the procedure. Each target was anesthetized with 2 mL of 2 % Sensorcaine anesthesia for lesioning and then each target was lesioned at 80 degrees Celsius for 2 minutes and 30 seconds. Tissue impedences were noted to be between 250- 500 Ohms. At the conclusion of the lesioning the needles were removed and bandages placed over the needle placement sites and the patient returned to the supine position on a stretcher and trans ported to the recovery room without hemodynamic, neurologic, or allergic reactions. Fluoroscopic images were printed for hard copy recording and digitally archived. FLUOROSCOPIC INTERPRETATION: Appropriate epidurogram obtained. Appropriate lesioning of the 10 targets noted. POST PROCEDURE EVALUATION: The patient was comfortable in the recovery room. The patient is aware that pain may worsen before remitting and 4 6 weeks may be required prior to the onset of pain relief. IMPRESSION: 1. Technically successful sacral lateral branch, lumbar dorsal ramus for denervation from L5-S3 on the bilateral without complication. 2. RTC in 2 weeks. 3. Estimated Blood Loss: None 4. Fluoroscopy time: 30 seconds
== END ==
LOC: RAD 09:25
PROVIDERS: ATTEND Family Medicine
DX: M47.817 Spondylosis without myelopathy or radiculopathy, lumbosacral region (principal); M47.818 Spondylosis without myelopathy or radiculopathy, sacral and sacrococcygeal region
CPT/HCPCS: 64635; 64640 ×3; J3490 ×2

== ENCOUNTER → 2019-03-05 | Outpatient (CLI) | payer MEDICARE, MEDICAID ==
[2019-03-05 13:53] LABS: ABSOLUTE EOSINOPHILS # (AUTO) 0.1 10^3/uL (0.0-0.6); ABSOLUTE LYMPHOCYTES (AUTO) 0.9 10^3/uL (0.5-4.7); ABSOLUTE MONOCYTES (AUTO) 0.5 10^3/uL (0.1-1.4); ABSOLUTE NEUT (AUTO) 4.6 10^3/uL (1.7-8.2); BASOPHILS % (AUTO) 0.2 % (0-2); HEMOGLOBIN 11.9 g/dL (13.5-17.0); LYMPHOCYTES % (AUTO) 15.1 % (13-45); MEAN CORPUSCULAR HEMOGLOBIN 24.4 pg (27.0-33.4); MEAN CORPUSCULAR HGB CONC 32.1 g/dL (32.0-36.0); MEAN CORPUSCULAR VOLUME 76 fl (80-97); MONOCYTES % (AUTO) 8.1 % (3-13); PLATELET COUNT 143 10^3/uL (150-450); RED BLOOD COUNT 4.87 10^6/uL (4.35-5.55); RED CELL DISTRIBUTION WIDTH 18.1 % (11.5-14.0); SEGMENTED NEUTROPHILS % (AUTO) 75.6 % (42-78); TOTAL CELLS COUNTED % (AUTO) 100 %; WHITE BLOOD COUNT 6.1 10^3/uL (4.0-10.5)
[2019-03-05 14:28] LABS: ALANINE AMINOTRANSFERASE 24 U/L (21-72); ALBUMIN 3.8 g/dL (3.5-5.0); ALKALINE PHOSPHATASE 90 U/L (38-126); ANION GAP 7 (5-19); ASPARTATE AMINO TRANSFERASE 19 U/L (17-59); BILIRUBIN,DIRECT 0.3 mg/dL (0.0-0.4); BILIRUBIN,TOTAL 0.9 mg/dL (0.2-1.3); BLOOD UREA NITROGEN 27 mg/dL (7-20); CALCIUM 9.1 mg/dL (8.4-10.2); CARBON DIOXIDE 29 mmol/L (22-30); CHLORIDE 106 mmol/L (98-107); GLUCOSE 108 mg/dL (75-110); POTASSIUM 3.8 mmol/L (3.6-5.0); SODIUM 142.4 mmol/L (137-145); TOTAL PROTEIN 6.9 g/dL (6.3-8.2)
[2019-03-05 14:31] LABS: C-REACTIVE PROTEIN < 5.0 mg/L (<10.0); ERYTHROCYTE SEDIMENTATION RATE 24 mm/hr (0-20)
--- NOTE | 2019-03-05 15:22 | RADIOLOGY REPORT (SQ) ---
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 TECHNIQUE: AP, lateral and oblique radiographic images acquired of the right foot. LIMITATIONS: None. FINDINGS: MINERALIZATION: Normal. BONES: Stable deformity of the right great toe interphalangeal joint with advanced bony erosions, jens nt space narrowing and bony spurring. Healed osteomyelitis at the second toe interphalangeal joint with bony remodeling. Healed osteotomy versus healed fracture at the fifth toe proximal phalanx. SOFT TISSUES: Medial right great toe ulcer with radiopaque ointment. Great toe Soft tissue swelling. No foreign body. OTHER: No other significant finding. IMPRESSION: Great toe soft tissue ulcer. No aggressive bony demineralization worrisome for active o steomyelitis TECHNICAL DOCUMENTATION: JOB ID: [id number] [employer]- All Rights Reserved Reading location - IP/workstation name: [email or web address]
== END ==
LOC: WC 13:05
PROVIDERS: ATTEND Preventive Medicine Undersea and Hyperbaric Medicine
DX: E11.621 Type 2 diabetes mellitus with foot ulcer (principal); L97.512 Non-pressure chronic ulcer of other part of right foot with fat layer exposed
CPT/HCPCS: 36415; 80053; 83036; 85025; 85652; 86140

== ENCOUNTER → 2019-04-01 | Outpatient (CLI) | payer MEDICARE, MEDICAID ==
--- NOTE | 2019-04-02 20:28 | XCELERA REPORT ---
[address] [address] Lower Extremity Arterial Evaluation Name: SHI SIDDIQI Age: 58 yrs Gender: Male : 1960 Patient Status: Outpatient Patient Location: [facility] Study Date: 04/01/2019 02:31 PM Reason For Study: PAD Ordering Physician: LIBORIO GAONA Performed By: Nikhil Perez Measurements and Calculations Right Left MANAGER TRADE PSV 147.3 123.4 cm/sec Prox PFA PSV 100.6 84.4 cm/sec Prox SFA PSV 137.1 122.9 cm/sec Mid SFA PSV -124.9 -113.8cm/sec Dist SFA PSV -84.2 -68.9 cm/sec Prox Pop A PSV 90.5 80.0 cm/sec Prox JASON PSV 49.7 cm/sec Mid JASON PSV 10.6 cm/sec Dist JASON PSV 7.9 32.4 cm/sec Dist ADVERTISEMENT DISTRIBUTOR PSV 150.1 96.3 cm/sec Bayron Pedis PSV 47.2 151.9 cm/sec Right Side Arterial Evaluation Normal velocity and triphasic waveforms noted from the Common Femoral artery to the Posterior Tibial artery,. Biphasic with much diminished velocity in the Anterior Tibial artery. Tibial with low normal velocity in the Dorsalis Pedis. . Ankle Brachial index not requested. Left Side Arterial Evaluation Normal velocity and triphasic waveforms noted from the Common Femoral artery to the Posterior Tibial artery,. Biphasic with low normal velocity in the Anterior Tibial artery. . . Ankle Brachial index not requested. Interpretation Summary Mild hemodynamically significant lesions in the bilateral lower extremities, on duplex imaging, at rest. The effect of arterial disease seems mostly confined to the Anterior Tibial artery. : LIBORIO GAONA > Raymon Bragg
== END ==
LOC: SP 14:08
PROVIDERS: ATTEND Internal Medicine
DX: I73.9 Peripheral vascular disease, unspecified (principal)
CPT/HCPCS: 93925

== ENCOUNTER 2019-04-14 13:13 | Emergency (ER) | payer MEDICARE, MEDICAID ==
[2019-04-14] MEDS ORDERED: NORMAL SALINE 1000 ML 1,000 ML IV ONE (14:02)
--- NOTE | 2019-04-14 14:06 | ER Document Report ---
ED Medical Screen (RME) - General Chief Complaint: Penile Discharge Stated Complaint: URINARY ISSUE Time Seen by Provider: 04/14/19 14:01 Primary Care Provider: LIBORIO GAONA MD [Primary Care Provider] - Follow up as needed Notes: Patient is a 58-year-old male who presents to the emergency department with a chief complaint of penile dysuria discharge. Patient states that he has had pus and blood out of his penis for the past 2 days. Patient has a history of a kidney transplant on the left side. Patient denies any fevers. He states that he does not have any dysuria, but has a tingling feeling when he urinates. Patient states that he has mid back pain, but he also has chronic back pain and states that it is not new. He has history of UTIs in the past. Exam: Tender mid lower abdomen. I have greeted and performed a rapid initial assessment of this patient. A comprehensive ED assessment and evaluation of the patient, analysis of test results and completion of medical decision making process will be conducted by an additional ED providers. TRAVEL OUTSIDE OF THE [place] IN LAST 30 DAYS: No - Related Data Allergies/Adverse Reactions: rivaroxaban [From Xarelto] Allergy (Severe, Verified 07/20/18 20:17) HEMORRHAGING ibuprofen Allergy (Mild, Verified 07/20/18 20:17) because of kidneys iodine [Iodine] Allergy (Mild, Verified 07/20/18 20:17) Hives ketorolac tromethamine [From Toradol] Adverse Reaction (Severe, Verified 07/20/18 20:17) Vomiting warfarin sodium [From Coumadin] Adverse Reaction (Severe, Verified 07/20/18 20: 17) weakness enoxaparin sodium [From Lovenox] Adverse Reaction (Intermediate, Verified 07/20/18 20:17) falls promethazine HCl [From Phenergan] Adverse Reaction (Unknown, Verified 07/20/18 20:17) Vomiting chlorohexidine Allergy (Mild, Uncoded 07/20/18 20:17) Hives Past Medical History - Past Medical History Cardiac Medical History: Reports: Hx Congestive Heart Failure, Hx Hypercholesterolemia Denies: Hx Coronary Artery Disease, Hx Heart Attack, Hx Hypertension Pulmonary Medical History: Reports: Hx Bronchitis - HX. BRONCHITIS, Hx Pneumonia, Hx Tuberculosis - as child Denies: Hx Asthma, Hx COPD Neurological Medical History: Denies: Hx Cerebrovascular Accident, Hx Seizures Endocrine Medical History: Reports: Hx Diabetes Mellitus Type 1, Hx Diabetes Mellitus Type 2 - IDDM Renal/ Medical History: Reports: Hx End Stage Renal Disease, Hx Hemodialysis - home dialysis, Hx Kidney Stones. Denies: Hx Peritoneal Dialysis GI Medical History: Reports: Hx Gastroesophageal Reflux Disease Musculoskeltal Medical History: Reports Hx Arthritis - ALL OVER Psychiatric Medical History: Reports: Hx Depression Past Surgical History: Reports: Hx Abdominal Surgery - GASTRIC SLEEVE PROCEEDURE January 2013, Hx Cardiac Catheterization, Hx Kidney (Renal Surgery) - transplant, Hx Orthopedic Surgery - rt knee, rt hand rt elbow cataract blood clot left leg 2004, Hx Vascular Surgery - stents in left leg - Immunizations Hx Diphtheria, Pertussis, Tetanus Vaccination: Yes History of Influenza Vaccine for 06/2017 - 11/2017 Season: No Influenza Administration Date for 06/2017 - 11/2017 Season: 06/04/17 Physical Exam - Vital signs Vitals: Temp Pulse Resp BP Pulse Ox 97.6 F 78 20 186/80 H 96 04/14/19 13:19 04/14/19 13:19 04/14/19 13:19 04/14/19 13:19 04/14/19 13:19 Course - Vital Signs Vital signs: Temp Pulse Resp BP Pulse Ox 97.6 F 78 20 186/80 H 96 04/14/19 13:19 04/14/19 13:19 04/14/19 13:19 04/14/19 13:19 04/14/19 13:19 Doctor's Discharge - Discharge Referrals: LIBORIO GAONA MD [Primary Care Provider] - Follow up as needed
[2019-04-14 14:33] LABS: ABSOLUTE LYMPHOCYTES (AUTO) 0.9 10^3/uL (0.5-4.7); ABSOLUTE MONOCYTES (AUTO) 0.4 10^3/uL (0.1-1.4); ABSOLUTE NEUT (AUTO) 2.9 10^3/uL (1.7-8.2); BASOPHILS % (AUTO) 0.2 % (0-2); EOSINOPHILS % (AUTO) 1.1 % (0-6); HEMATOCRIT 33.8 % (37.9-51.0); HEMOGLOBIN 10.9 g/dL (13.5-17.0); MEAN CORPUSCULAR HEMOGLOBIN 24.5 pg (27.0-33.4); MEAN CORPUSCULAR HGB CONC 32.2 g/dL (32.0-36.0); MEAN CORPUSCULAR VOLUME 76 fl (80-97); MONOCYTES % (AUTO) 8.9 % (3-13); PLATELET COUNT 128 10^3/uL (150-450); RED BLOOD COUNT 4.44 10^6/uL (4.35-5.55); RED CELL DISTRIBUTION WIDTH 18.2 % (11.5-14.0); SEGMENTED NEUTROPHILS % (AUTO) 68.8 % (42-78); TOTAL CELLS COUNTED % (AUTO) 100 %; WHITE BLOOD COUNT 4.3 10^3/uL (4.0-10.5)
[2019-04-14 14:52] LABS: APPEARANCE,URINE CLEAR; BILIRUBIN,URINE NEGATIVE (NEGATIVE); COLOR,URINE STRAW; GLUCOSE, URINE NEGATIVE (NEGATIVE); KETONES,URINE NEGATIVE (NEGATIVE); LEUKOCYTE ESTERASE,URINE TRACE (NEGATIVE); NITRITE,URINE NEGATIVE (NEGATIVE); PROTEIN,URINE NEGATIVE (NEGATIVE); URINE SPECIFIC GRAVITY 1.009; UROBILINOGEN,URINE NEGATIVE mg/dL (<2.0)
[2019-04-14 14:56] LABS: ALBUMIN 3.6 g/dL (3.5-5.0); ALKALINE PHOSPHATASE 86 U/L (38-126); ANION GAP 8 (5-19); ASPARTATE AMINO TRANSFERASE 17 U/L (17-59); BILIRUBIN,DIRECT 0.2 mg/dL (0.0-0.4); BILIRUBIN,TOTAL 0.7 mg/dL (0.2-1.3); BLOOD UREA NITROGEN 23 mg/dL (7-20); CALCIUM 9.1 mg/dL (8.4-10.2); CARBON DIOXIDE 27 mmol/L (22-30); CHLORIDE 108 mmol/L (98-107); GLUCOSE 110 mg/dL (75-110); POTASSIUM 3.9 mmol/L (3.6-5.0); TOTAL PROTEIN 6.6 g/dL (6.3-8.2)
[2019-04-14 16:20] LABS: CHLAM PCR NOT DETECTED (NOT DETECT)
[2019-04-14] MEDS ORDERED: CEFTRIAXONE INJ 250 MG VIAL IM ONE (16:24)
[2019-04-14] MEDS ORDERED: AZITHROMYCIN 250 MG TABLET PO ONE (16:24)
[2019-04-14] MEDS ORDERED: LIDOCAINE 1% INJ-PF (10 MG/ML) 30 ML SDV NEB ONE (16:24)
--- NOTE | 2019-04-14 16:25 | ER Document Report ---
ED GI/ - General Chief Complaint: Penile Discharge Stated Complaint: URINARY ISSUE Time Seen by Provider: 04/14/19 14:01 Primary Care Provider: LIBORIO GAONA MD [ACTIVE STAFF] - Follow up as needed Mode of Arrival: Ambulatory Information source: Patient Notes: Patient is a 58-year-old male presented to the emergency department with chief complaint of a tingling sensation with urination as well as pus and small amounts of blood with urination. He denies any dysuria. He reports that he is not sexually active. He also reports some low back pain. He denies any fever or chills. He does report having a kidney transplant 3 years ago which he reports has been doing well. TRAVEL OUTSIDE OF THE [place] IN LAST 30 DAYS: No - Related Data Allergies/Adverse Reactions: rivaroxaban [From Xarelto] Allergy (Severe, Verified 07/20/18 20:17) HEMORRHAGING ibuprofen Allergy (Mild, Verified 07/20/18 20:17) because of kidneys iodine [Iodine] Allergy (Mild, Verified 07/20/18 20:17) Hives ketorolac tromethamine [From Toradol] Adverse Reaction (Severe, Verified 07/20/18 20:17) Vomiting warfarin sodium [From Coumadin] Adverse Reaction (Severe, Verified 07/20/18 20:17) weakness enoxaparin sodium [From Lovenox] Adverse Reaction (Intermediate, Verified 07/20/18 20:17) falls promethazine HCl [From Phenergan] Adverse Reaction (Unknown, Verified 07/20/18 20:17) Vomiting chlorohexidine Allergy (Mild, Uncoded 07/20/18 20:17) Hives Past Medical History - General Information source: Patient - Social History Smoking Status: Never Smoker Chew tobacco use (# tins/day): No Frequency of alcohol use: None Drug Abuse: None Family History: Reviewed & Not Pertinent Patient has suicidal ideation: No Patient has homicidal ideation: No - Past Medical History Cardiac Medical History: Reports: Hx Congestive Heart Failure, Hx Hypercholesterolemia Denies: Hx Coronary Artery Disease, Hx Heart Attack, Hx Hypertension Pulmonary Medical History: Reports: Hx Bronchitis - HX. BRONCHITIS, Hx Pneumonia, Hx Tuberculosis - as child Denies: Hx Asthma, Hx COPD Neurological Medical History: Denies: Hx Cerebrovascular Accident, Hx Seizures Endocrine Medical History: Reports: Hx Diabetes Mellitus Type 1, Hx Diabetes Mellitus Type 2 - IDDM Renal/ Medical History: Reports: Hx End Stage Renal Disease, Hx Hemodialysis - home dialysis, Hx Kidney Stones. Denies: Hx Peritoneal Dialysis GI Medical History: Reports: Hx Gastroesophageal Reflux Disease Musculoskeletal Medical History: Reports Hx Arthritis - ALL OVER Psychiatric Medical History: Reports: Hx Depression Past Surgical History: Reports: Hx Abdominal Surgery - GASTRIC SLEEVE PROCEEDURE January 2013, Hx Cardiac Catheterization, Hx Kidney (Renal Surgery) - transplant, Hx Orthopedic Surgery - rt knee, rt hand rt elbow cataract blood clot left leg 2004, Hx Vascular Surgery - stents in left leg - Immunizations Hx Diphtheria, Pertussis, Tetanus Vaccination: Yes Hx Pneumococcal Vaccination: 09/04/17 Review of Systems - Review of Systems Constitutional: No symptoms reported EENT: No symptoms reported Cardiovascular: No symptoms reported Respiratory: No symptoms reported Gastrointestinal: Abdominal pain Genitourinary: No symptoms reported Male Genitourinary: Penile discharge Musculoskeletal: No symptoms reported Skin: No symptoms reported Hematologic/Lymphatic: No symptoms reported Neurological/Psychological: No symptoms reported Physical Exam - Vital signs Vitals: Temp Pulse Resp BP Pulse Ox 97.6 F 78 20 186/80 H 96 04/14/19 13:19 04/14/19 13:19 04/14/19 13:19 04/14/19 13:19 04/14/19 13:19 - Notes Notes: PHYSICAL EXAMINATION: GENERAL: Well-appearing, well-nourished and in no acute distress. HEAD: Atraumatic, normocephalic. EYES: Pupils equal round and reactive to light, extraocular movements intact, sclera anicteric, conjunctiva are normal. ENT: Nares patent, oropharynx clear without exudates. Moist mucous membranes. NECK: Normal range of motion, supple without lymphadenopathy LUNGS: Breath sounds clear to auscultation bilaterally and equal. No wheezes rales or rhonchi. HEART: Regular rate and rhythm without murmurs ABDOMEN: Soft, nondistended abdomen. Mild tenderness to palpation to the abdomen. No guarding, no rebound. No masses appreciated. Musculoskeletal: Normal range of motion, no pitting or edema. No cyanosis. NEUROLOGICAL: Cranial nerves grossly intact. Normal speech, normal gait. Normal sensory, motor exams PSYCH: Normal mood, normal affect. SKIN: Warm, Dry, normal turgor, no rashes or lesions noted. Course - Re-evaluation Re-evalutation: 04/14/19 17:01 Patient was from his and brother who were at the bedside so that test results could be discussed. I informed patient that his test came back po sitive for gonorrhea. He states that he does not want his family to know about this. He will be treated with azithromycin and Rocephin here in the emergency department and discharged home. Urine culture is pending. Patient understands the need for no intercourse for 10 days and to notify any partners of the need for testing. - Vital Signs Vital signs: Temp Pulse Resp BP Pulse Ox 97.5 F 68 16 145/80 H 100 04/14/19 17:15 04/14/19 17:15 04/14/19 17:15 04/14/19 17:25 04/14/19 17:15 - Laboratory Result Diagrams: 04/14/19 14:25 04/14/19 14:25 Laboratory results interpreted by me: 04/14/19 04/14/19 04/14/19 13:45 13:45 14:25 Hgb 10.9 L Hct 33.8 L MCV 76 L MCH 24.5 L RDW 18.2 H Plt Count 128 L Chloride BUN Urine Blood MODERATE H Ur Leukocyte Esterase TRACE H N.gonorrhoeae DNA (PCR) DETECTED H 04/14/19 14:25 Hgb Hct MCV MCH RDW Plt Count Chloride 108 H BUN 23 H Urine Blood Ur Leukocyte Esterase N.gonorrhoeae DNA (PCR) Discharge - Discharge Clinical Impression: Dysuria, Gonorrhea Hematuria Qualifiers: Hematuria type: unspecified type Qualified Code(s): R31.9 - Hematuria, unspecified Condition: Stable Disposition: HOME, SELF-CARE Additional Instructions: You were given a dose of antibiotics here in the emergency department for the bacteria in your urine. We have sent off a urine culture which take several days to come back. If there is any abnormality in this someone will call you and will call in antibiotic to your pharmacy. Please continue to take all home medications as prescribed by your primary care provider. Referrals: LIBORIO GAONA MD [ACTIVE STAFF] - Follow up as needed
[2019-04-14 17:32] VITALS: BP 145/80
== END 2019-04-14 17:32 | disposition home or self-care (01) ==
LOC: ER 13:13
DX: A54.9 Gonococcal infection, unspecified (principal); R31.9 Hematuria, unspecified; R30.0 Dysuria; M54.5 Low back pain; E11.9 Type 2 diabetes mellitus without complications; Z94.0 Kidney transplant status; Z88.8 Allergy status to other drugs, medicaments and biological substances; Z98.84 Bariatric surgery status
CPT/HCPCS: 36415; 87086; 85025; 87088; 80053; 81001; 87491; 87591; A9270; J3490; J7030; J0696; 87186; 96360; 96361; 96372; 99283

== ENCOUNTER → 2019-06-25 | Outpatient (CLI) | payer MEDICARE, MEDICAID ==
[2019-06-25 10:53] LABS: ABSOLUTE EOSINOPHILS # (AUTO) 0.1 10^3/uL (0.0-0.6); ABSOLUTE LYMPHOCYTES (AUTO) 0.7 10^3/uL (0.5-4.7); ABSOLUTE MONOCYTES (AUTO) 0.2 10^3/uL (0.1-1.4); ABSOLUTE NEUT (AUTO) 2.4 10^3/uL (1.7-8.2); BASOPHILS % (AUTO) 0.2 % (0-2); EOSINOPHILS % (AUTO) 1.8 % (0-6); HEMATOCRIT 35.5 % (37.9-51.0); HEMOGLOBIN 11.3 g/dL (13.5-17.0); LYMPHOCYTES % (AUTO) 20.4 % (13-45); MEAN CORPUSCULAR HEMOGLOBIN 24.4 pg (27.0-33.4); MEAN CORPUSCULAR HGB CONC 31.8 g/dL (32.0-36.0); MEAN CORPUSCULAR VOLUME 77 fl (80-97); MONOCYTES % (AUTO) 6.8 % (3-13); PLATELET COUNT 134 10^3/uL (150-450); RED BLOOD COUNT 4.63 10^6/uL (4.35-5.55); RED CELL DISTRIBUTION WIDTH 18.3 % (11.5-14.0); SEGMENTED NEUTROPHILS % (AUTO) 70.8 % (42-78); TOTAL CELLS COUNTED % (AUTO) 100 %; WHITE BLOOD COUNT 3.4 10^3/uL (4.0-10.5)
[2019-06-25 11:15] LABS: ANISOCYTOSIS 1+
[2019-06-25 11:16] LABS: HYPOCHROMASIA SLIGHT; PLATELET COMMENT ADEQUATE; PLATELET LARGE PRESENT; POLYCHROMASIA SLIGHT
[2019-06-25 11:18] LABS: ALBUMIN 3.8 g/dL (3.5-5.0); ALKALINE PHOSPHATASE 90 U/L (38-126); ANION GAP 9 (5-19); ASPARTATE AMINO TRANSFERASE 18 U/L (17-59); BILIRUBIN,DIRECT 0.1 mg/dL (0.0-0.4); BILIRUBIN,TOTAL 0.6 mg/dL (0.2-1.3); BLOOD UREA NITROGEN 19 mg/dL (7-20); CALCIUM 9.5 mg/dL (8.4-10.2); CARBON DIOXIDE 28 mmol/L (22-30); CHLORIDE 106 mmol/L (98-107); GLUCOSE 124 mg/dL (75-110); POTASSIUM 3.4 mmol/L (3.6-5.0); TOTAL PROTEIN 6.8 g/dL (6.3-8.2)
[2019-06-25 11:23] LABS: C-REACTIVE PROTEIN < 5.0 mg/L (<10.0)
[2019-06-25 11:31] LABS: ERYTHROCYTE SEDIMENTATION RATE 30 mm/hr (0-20)
--- NOTE | 2019-06-25 14:47 | RADIOLOGY REPORT (SQ) ---
EXAM DESCRIPTION: FOOT RIGHT COMPLETE COMPLETED DATE/TIME: 06/25/2019 10:43 am REASON FOR STUDY: NON-PRS CHRONIC ULCER OTH PRT RIGHT FOOT W FAT LAYER EXPOSED L97.512 NON-PRS ADOBE LAYER JUANI ULCER OTH PRT RIGHT FOOT W FAT LAYER E11.621 TYPE 2 DIABETES MELLITUS WITH FOOT ULCER COMPARISON: None. NUMBER OF VIEWS: Three views. TECHNIQUE: AP, lateral and oblique radiographic images acquired of the right foot. LIMITATIONS: None. FINDINGS: MINERALIZATION: Normal. BONES: No evidence of osteomyelitis. JOINTS: Charcot joints are suggested in the 1st and 2nd proximal interphalangeal joints. SOFT TISSUES: No soft tissue swelling. No foreign body. OTHER: No other significant finding. IMPRESSION: Degenerative joint changes. No evidence of osteomyelitis. TECHNICAL DOCUMENTATION: JOB ID: [id number] [employer]- All Rights Reserved Reading location - IP/workstation name: [email or web address]
== END ==
LOC: WC 09:45
PROVIDERS: ATTEND Preventive Medicine Undersea and Hyperbaric Medicine
DX: E11.621 Type 2 diabetes mellitus with foot ulcer (principal); L97.512 Non-pressure chronic ulcer of other part of right foot with fat layer exposed; I10 Essential (primary) hypertension; E11.21 Type 2 diabetes mellitus with diabetic nephropathy; E78.5 Hyperlipidemia, unspecified; Z79.899 Other long term (current) drug therapy
CPT/HCPCS: 36415; 80053; 83036; 85025; 85652; 86140

== ENCOUNTER → 2019-06-25 | Outpatient (CLI) | payer MEDICARE, MEDICAID ==
[2019-06-25 11:18] LABS: ABSOLUTE EOSINOPHILS # (AUTO) 0.1 10^3/uL (0.0-0.6); ABSOLUTE LYMPHOCYTES (AUTO) 0.7 10^3/uL (0.5-4.7); ABSOLUTE MONOCYTES (AUTO) 0.2 10^3/uL (0.1-1.4); ABSOLUTE NEUT (AUTO) 2.4 10^3/uL (1.7-8.2); BASOPHILS % (AUTO) 0.2 % (0-2); EOSINOPHILS % (AUTO) 1.8 % (0-6); HEMATOCRIT 35.5 % (37.9-51.0); HEMOGLOBIN 11.3 g/dL (13.5-17.0); LYMPHOCYTES % (AUTO) 20.4 % (13-45); MEAN CORPUSCULAR HEMOGLOBIN 24.4 pg (27.0-33.4); MEAN CORPUSCULAR HGB CONC 31.8 g/dL (32.0-36.0); MEAN CORPUSCULAR VOLUME 77 fl (80-97); MONOCYTES % (AUTO) 6.8 % (3-13); PLATELET COUNT 134 10^3/uL (150-450); RED BLOOD COUNT 4.63 10^6/uL (4.35-5.55); RED CELL DISTRIBUTION WIDTH 18.3 % (11.5-14.0); SEGMENTED NEUTROPHILS % (AUTO) 70.8 % (42-78); TOTAL CELLS COUNTED % (AUTO) 100 %; WHITE BLOOD COUNT 3.4 10^3/uL (4.0-10.5)
[2019-06-25 11:19] LABS: ANISOCYTOSIS 1+; HYPOCHROMASIA SLIGHT; PLATELET COMMENT ADEQUATE; PLATELET LARGE PRESENT; POLYCHROMASIA SLIGHT
[2019-06-25 11:30] LABS: ALBUMIN 3.8 g/dL (3.5-5.0); ALKALINE PHOSPHATASE 90 U/L (38-126); ANION GAP 9 (5-19); ASPARTATE AMINO TRANSFERASE 18 U/L (17-59); BILIRUBIN,DIRECT 0.1 mg/dL (0.0-0.4); BILIRUBIN,TOTAL 0.6 mg/dL (0.2-1.3); BLOOD UREA NITROGEN 19 mg/dL (7-20); CALCIUM 9.5 mg/dL (8.4-10.2); CARBON DIOXIDE 28 mmol/L (22-30); CHLORIDE 106 mmol/L (98-107); GLUCOSE 124 mg/dL (75-110); POTASSIUM 3.4 mmol/L (3.6-5.0); TOTAL PROTEIN 6.8 g/dL (6.3-8.2)
[2019-06-26 12:37] LABS: CREATININE URINE 39.6 mg/dL (Not Estab.); MICROALBUMIN URINE 220.5 ug/mL (Not Estab.)
== END ==
LOC: OD 10:17
PROVIDERS: ATTEND Family Medicine Geriatric Medicine
DX: I10 Essential (primary) hypertension (principal); E11.21 Type 2 diabetes mellitus with diabetic nephropathy; E78.5 Hyperlipidemia, unspecified; Z79.899 Other long term (current) drug therapy
CPT/HCPCS: 36415; 82043; 82570; 83036; 87070

== ENCOUNTER → 2019-07-16 | Outpatient (CLI) | payer MEDICARE, MEDICAID ==
--- NOTE | 2019-07-16 17:24 | RADIOLOGY REPORT (SQ) ---
EXAM DESCRIPTION: HAND LEFT 3 VIEWS COMPLETED DATE/TIME: 07/16/2019 4:48 pm REASON FOR STUDY: LEFT HAND INJURY AND PAIN COMPARISON: None. NUMBER OF VIEWS: Three views left hand LIMITATIONS: None. FINDINGS: There is no acute or significant bone, joint or soft tissue abnormality. OTHER: No other significant finding. IMPRESSION: NORMAL STUDY. TECHNICAL DOCUMENTATION: JOB ID: [id number] Reading location - [email or web address]
== END ==
LOC: OD 16:23
PROVIDERS: ATTEND Family Medicine Geriatric Medicine
DX: S69.92XA Unspecified injury of left wrist, hand and finger(s), initial encounter (principal); X58.XXXA Exposure to other specified factors, initial encounter; M79.642 Pain in left hand

== ENCOUNTER 2019-09-03 09:09 | Emergency (ER) | payer MEDICARE, MEDICAID ==
--- NOTE | 2019-09-03 09:38 | ER Document Report ---
ED Medical Screen (RME) - General Chief Complaint: Urinary Problem Stated Complaint: URINARY ISSUE Time Seen by Provider: 09/03/19 09:34 Primary Care Provider: KORINA RDZ MD [Primary Care Provider] - Follow up as needed TRAVEL OUTSIDE OF THE [place] IN LAST 30 DAYS: No - HPI Notes: 09/03/19 09:37 Patient is a 59-year-old male who presents complaining of dysuria since last ni ght. Patient states that he will urinate and only have a small amount come out and have the feeling of needing to urinate again immediately thereafter. He did have a kidney transplant 3 years ago, but has not had any complications from it since. He does have a history of diabetes as well. Denies fever, chest pain, shortness of breath, abdominal pain. I have treated and performed a rapid initial assessment of this patient. A comprehensive ED assessment and evaluation of the patient, analysis of test results and completion of medical decision making process will be conducted by additional ED providers. PHYSICAL EXAMINATION: GENERAL: Well-appearing, well-nourished and in no acute distress. A&Ox4. Answers questions appropriately. - Related Data Allergies/Adverse Reactions: rivaroxaban [From Xarelto] Allergy (Severe, Verified 07/20/18 20:17) HEMORRHAGING ibuprofen Allergy (Mild, Verified 07/20/18 20:17) because of kidneys iodine [Iodine] Allergy (Mild, Verified 07/20/18 20:17) Hives ketorolac tromethamine [From Toradol] Adverse Reaction (Severe, Verified 07/20/18 20:17) Vomiting warfarin sodium [From Coumadin] Adverse Reaction (Severe, Verified 07/20/18 20:17) weakness enoxaparin sodium [From Lovenox] Adverse Reaction (Intermediate, Verified 07/20/18 20:17) falls promethazine HCl [From Phenergan] Adverse Reaction (Unknown, Verified 07/20/18 20:17) Vomiting chlorohexidine Allergy (Mild, Uncoded 07/20/18 20:17) Hives Past Medical History - Past Medical History Cardiac Medical History: Reports: Hx Congestive Heart Failure, Hx Hypercholesterolemia Denies: Hx Coronary Artery Disease, Hx Heart Attack, Hx Hypertension Pulmonary Medical History: Reports: Hx Bronchitis - HX. BRONCHITIS, Hx Pneumonia, Hx Tuberculosis - as child Denies: Hx Asthma, Hx COPD Neurological Medical History: Denies: Hx Cerebrovascular Accident, Hx Seizures Endocrine Medical History: Reports: Hx Diabetes Mellitus Type 1, Hx Diabetes Mellitus Type 2 - IDDM Renal/ Medical History: Reports: Hx End Stage Renal Disease, Hx Hemodialysis - home dialysis, Hx Kidney Stones. Denies: Hx Peritoneal Dialysis GI Medical History: Reports: Hx Gastroesophageal Reflux Disease Musculoskeltal Medical History: Reports Hx Arthritis - ALL OVER Psychiatric Medical History: Reports: Hx Depression Past Surgical History: Reports: Hx Abdominal Surgery - GASTRIC SLEEVE PROCEEDURE January 2013, Hx Cardiac Catheterization, Hx Kidney (Renal Surgery) - transplant, Hx Orthopedic Surgery - rt knee, rt hand rt elbow cataract blood clot left leg 2004, Hx Vascular Surgery - stents in left leg - Immunizations Hx Diphtheria, Pertussis, Tetanus Vaccination: Yes Physical Exam - Vital signs Vitals: Temp Pulse Resp BP Pulse Ox 97.5 F 91 20 146/88 H 99 09/03/19 09:22 09/03/19 09:22 09/03/19 09:22 09/03/19 09:22 09/03/19 09:22 Course - Vital Signs Vital signs: Temp Pulse Resp BP Pulse Ox 97.5 F 91 20 146/88 H 99 09/03/19 09:22 09/03/19 09:22 09/03/19 09:22 09/03/19 09:22 09/03/19 09:22 Doctor's Discharge - Discharge Referrals: KORINA RDZ MD [Primary Care Provider] - Follow up as needed
[2019-09-03 10:21] LABS: ABSOLUTE EOSINOPHILS # (AUTO) 0.1 10^3/uL (0.0-0.6); ABSOLUTE LYMPHOCYTES (AUTO) 1.1 10^3/uL (0.5-4.7); ABSOLUTE MONOCYTES (AUTO) 0.4 10^3/uL (0.1-1.4); ABSOLUTE NEUT (AUTO) 3.7 10^3/uL (1.7-8.2); BASOPHILS % (AUTO) 0.2 % (0-2); EOSINOPHILS % (AUTO) 2.1 % (0-6); HEMATOCRIT 36.6 % (37.9-51.0); HEMOGLOBIN 11.9 g/dL (13.5-17.0); LYMPHOCYTES % (AUTO) 20.3 % (13-45); MEAN CORPUSCULAR HEMOGLOBIN 24.7 pg (27.0-33.4); MEAN CORPUSCULAR HGB CONC 32.6 g/dL (32.0-36.0); MEAN CORPUSCULAR VOLUME 76 fl (80-97); MONOCYTES % (AUTO) 8.4 % (3-13); PLATELET COUNT 161 10^3/uL (150-450); RED BLOOD COUNT 4.82 10^6/uL (4.35-5.55); RED CELL DISTRIBUTION WIDTH 17.8 % (11.5-14.0); TOTAL CELLS COUNTED % (AUTO) 100 %; WHITE BLOOD COUNT 5.3 10^3/uL (4.0-10.5)
[2019-09-03 10:26] LABS: APPEARANCE,URINE CLEAR; BILIRUBIN,URINE NEGATIVE (NEGATIVE); COLOR,URINE STRAW; GLUCOSE, URINE NEGATIVE (NEGATIVE); KETONES,URINE NEGATIVE (NEGATIVE); LEUKOCYTE ESTERASE,URINE SMALL (NEGATIVE); NITRITE,URINE NEGATIVE (NEGATIVE); PROTEIN,URINE 30 mg/dL (NEGATIVE); URINE SPECIFIC GRAVITY 1.005; UROBILINOGEN,URINE NEGATIVE mg/dL (<2.0)
[2019-09-03 10:45] LABS: ALBUMIN 3.8 g/dL (3.5-5.0); ALKALINE PHOSPHATASE 95 U/L (38-126); ANION GAP 10 (5-19); ASPARTATE AMINO TRANSFERASE 19 U/L (17-59); BILIRUBIN,DIRECT 0.2 mg/dL (0.0-0.4); BILIRUBIN,TOTAL 0.7 mg/dL (0.2-1.3); BLOOD UREA NITROGEN 20 mg/dL (7-20); CALCIUM 9.8 mg/dL (8.4-10.2); CARBON DIOXIDE 29 mmol/L (22-30); CHLORIDE 106 mmol/L (98-107); GLUCOSE 122 mg/dL (75-110); POTASSIUM 3.6 mmol/L (3.6-5.0); TOTAL PROTEIN 7.2 g/dL (6.3-8.2)
--- NOTE | 2019-09-03 10:52 | ER Document Report ---
ED GI/ - General Chief Complaint: Urinary Frequency Stated Complaint: URINARY ISSUE Time Seen by Provider: 09/03/19 09:34 Primary Care Provider: KORINA RDZ MD [Primary Care Provider] - Follow up as needed Information source: Patient TRAVEL OUTSIDE OF THE [place] IN LAST 30 DAYS: No - HPI Patient complains to provider of: Dysuria. No: Abdominal pain, Diarrhea, Feeding tube problem, Flank pain, Courtney catheter problem, Groin pain, Hematuria, Testicular pain, Urinary retention, Vomiting, Other Onset: Just prior to arrival Timing/Duration: Gradual. denies: Sudden, Constant, Intermittent, Persistent, Waxing and waning, Better, Worse, Gone Quality of pain: Cramping. denies: No pain, Achy, Burning, Dull, Fullness, Pressure, Sharp, Stabbing, Throbbing, Other Severity at maximum: Mild Severity in ED: Mild Location: No: Chest pain, Epigastric, LUQ, LLQ, RUQ, RLQ, Left flank, Right flank, Low back, Suprapubic, Pelvis, Left testicle, Right testicle, Rectal, Other Associated symptoms: denies: None, Blood in emesis, Blood in stool, Chest pain, Chills, Coffee ground emesis, Constipation, Diarrhea, Dizzy, Dysuria, Erection problem, Fever, Foreskin problem, Hard stool, Hematuria, Hematospermia, Hurts to breath, Inguinal mass, Lightheaded, Loss of appetite, Nausea, Painful intercourse, Penile discharge, Radiates to back, Radiates to chest, Radiates to testicles, Radiates to shoulder, Shortness of breath, Sweaty, Syncope, Urinary hesitancy, Urinary frequency, Urinary retention, Urinary urgency, Vomiting, Other Notes: 09/03/19 10:50 She is a 59-year-old with a history of a renal transplant. He has recently followed up with his transplant physician and has been told that his kidney function was near normal. He does have some frequency urination but no penile discharge no testicle pain no abdominal pain just feels like he has to go afte rwards. Has no dribbling or stopping. - Related Data Allergies/Adverse Reactions: rivaroxaban [From Xarelto] Allergy (Severe, Verified 09/03/19 09:38) HEMORRHAGING ibuprofen Allergy (Mild, Verified 09/03/19 09:38) because of kidneys iodine [Iodine] Allergy (Mild, Verified 09/03/19 09:38) Hives ketorolac tromethamine [From Toradol] Adverse Reaction (Severe, Verified 09/03/19 09:38) Vomiting warfarin sodium [From Coumadin] Adverse Reaction (Severe, Verified 09/03/19 09:38) weakness enoxaparin sodium [From Lovenox] Adverse Reaction (Intermediate, Verified 09/03/19 09:38) falls promethazine HCl [From Phenergan] Adverse Reaction (Unknown, Verified 09/03/19 09:38) Vomiting chlorohexidine Allergy (Mild, Uncoded 09/03/19 09:38) Hives Past Medical History - Social History Smoking Status: Never Smoker Chew tobacco use (# tins/day): No Frequency of alcohol use: None Drug Abuse: None Family History: Reviewed & Not Pertinent Patient has suicidal ideation: No Patient has homicidal ideation: No - Past Medical History Cardiac Medical History: Reports: Hx Congestive Heart Failure, Hx Hyperch olesterolemia, Hx Hypertension - NO MEDS, HX Denies: Hx Coronary Artery Disease, Hx Heart Attack Pulmonary Medical History: Reports: Hx Bronchitis, Hx Pneumonia, Hx Tuberculosis Denies: Hx Asthma, Hx COPD Neurological Medical History: Denies: Hx Cerebrovascular Accident, Hx Seizures Endocrine Medical History: Reports: Hx Diabetes Mellitus Type 1, Hx Diabetes Mellitus Type 2 Renal/ Medical History: Reports: Hx End Stage Renal Disease, Hx Hemodialysis - home dialysis, Hx Kidney Stones. Denies: Hx Peritoneal Dialysis GI Medical History: Reports: Hx Gastroesophageal Reflux Disease Musculoskeletal Medical History: Reports Hx Arthritis - ALL OVER Psychiatric Medical History: Reports: Hx Depression Past Surgical History: Reports: Hx Abdominal Surgery - GASTRIC SLEEVE PROCEEDURE January 2013, Hx Cardiac Catheterization, Hx Kidney (Renal Surgery) - transplant, Hx Orthopedic Surgery - rt knee, rt hand rt elbow cataract blood clot left leg 2004, Hx Vascular Surgery - stents in left leg - Immunizations Hx Diphtheria, Pertussis, Tetanus Vaccination: Yes Hx Pneumococcal Vaccination: 09/04/17 Review of Systems - Review of Systems Constitutional: denies: No symptoms reported, See HPI, Chills, Diaphoresis, Fever, Malaise, Weakness, Other, Weight gain, Weight loss, Recent illness Cardiovascular: denies: No symptoms reported, See HPI, Chest pain, Palpitations, Heart racing, Orthopnea, Dyspnea, Syncope, Dizziness, Lightheaded, Edema, Other, Paroxysmal Nocturnal Dysp Respiratory: denies: No symptoms reported, See HPI, Cough, Hurts to breathe, Hemoptysis, Short of breath, Sputum, Stridor, Wheezing, Other Gastrointestinal: denies: No symptoms reported, See HPI, Abdomen distended, Abdominal pain, Diarrhea, Nausea, Vomiting, Constipation, Blood streaked bowels, Poor appetite, Poor fluid intake, Blood in vomit, Black stools, Rectal bleeding, Last bowel movement, Fecal incontinence, Other Genitourinary: Dysuria, Frequency. denies: No symptoms reported, See HPI, Burning, Discharge, Flank pain, Hematuria, Incontinence, Pain, Urgency, Retention, Other -: Yes All other systems reviewed and negative Physical Exam - Vital signs Vitals: Temp Pulse Resp BP Pulse Ox 97.5 F 91 20 146/88 H 99 09/03/19 09:22 09/03/19 09:22 09/03/19 09:22 09/03/19 09:22 09/03/19 09:22 Notes: PHYSICAL EXAMINATION: GENERAL: Well-appearing, well-nourished and in no acute distress. HEAD: Atraumatic, normocephalic. EYES: Pupils equal round and reactive to light, extraocular movements intact, sclera anicteric, conjunctiva are normal. ENT: nares patent, oropharynx clear without exudates. Moist mucous membranes. NECK: Normal range of motion, supple without lymphadenopathy LUNGS: Breath sounds clear to auscultation bilaterally and equal. No wheezes rales or rhonchi. HEART: Regular rate and rhythm without murmurs ABDOMEN: Soft, nontender, normoactive bowel sounds. No guarding, no rebound. No masses appreciated. Patient of the renal transplant in the right lower quadrant produces no pain to palpation. EXTREMITIES: Normal range of motion, no pitting or edema. No cyanosis. NEUROLOGICAL: No focal neurological deficits. Moves all extremities spontaneously and on command. PSYCH: Normal mood, normal affect. SKIN: Warm, Dry, normal turgor, no rashes or lesions noted. Course - Vital Signs Vital signs: Temp Pulse Resp BP Pulse Ox 97.9 F 89 19 153/79 H 97 09/03/19 11:03 09/03/19 11:03 09/03/19 11:03 09/03/19 11:03 09/03/19 11:03 - Laboratory Result Diagrams: 09/03/19 09:44 09/03/19 09:44 Laboratory results interpreted by me: 09/03/19 09/03/19 09/03/19 09:44 09:44 09:44 Hgb 11.9 L Hct 36.6 L MCV 76 L MCH 24.7 L RDW 17.8 H Creatinine 1.34 H Est GFR (MDRD) Non-Af 55 L Glucose 122 H Urine Protein 30 H Urine Blood MODERATE H Ur Leukocyte Esterase SMALL H Discharge - Discharge Clinical Impression: UTI (urinary tract infection) Qualifiers: Urinary tract infection type: acute cystitis Hematuria presence: without hematuria Qualified Code(s): N30.00 - Acute cystitis without hematuria Condition: Good Disposition: HOME, SELF-CARE Instructions: Urinary Tract Infection ([facility]) Additional Instructions: Discussed with your physician using Pyridium due to the renal transplant take the medicines as directed return if increased pain fever or condition worsens Prescriptions: Levofloxacin [Levaquin 750 mg Tablet] 750 mg PO DAILY #10 tablet Phenazopyridine HCl [Pyridium 100 Mg Tablet] 100 mg PO Q8 PRN #6 tablet PRN Reason: Pain Scale Of 2 Referrals: KORINA RDZ MD [Primary Care Provider] - Follow up as needed
[2019-09-03 11:04] VITALS: BP 153/79
[2019-09-03 12:05] LABS: CHLAM PCR NOT DETECTED (NOT DETECT)
== END 2019-09-03 11:40 | disposition home or self-care (01) ==
LOC: ER 09:09
DX: N30.00 Acute cystitis without hematuria (principal); R35.0 Frequency of micturition; R30.0 Dysuria; R10.9 Unspecified abdominal pain; Z94.0 Kidney transplant status; I50.9 Heart failure, unspecified; I11.0 Hypertensive heart disease with heart failure; E11.9 Type 2 diabetes mellitus without complications
CPT/HCPCS: 36415; 80053; 81001; 85025; 87086; 87491; 87591; 99283

== ENCOUNTER 2019-10-24 15:13 | Emergency (ER) | payer MEDICARE, MEDICAID ==
[2019-10-24] MEDS ORDERED: ONDANSETRON 4 MG TAB.RAPDIS ONE (15:41)
[2019-10-24] MEDS ORDERED: ONDANSETRON HCL INJ/PF 4 MG/2 ML SDV IV ONE (16:06)
[2019-10-24] MEDS ORDERED: HYDROMORPHONE HCL INJ/PF 2 MG/ML AMPULE IV ONE (16:06)
[2019-10-24 17:15] LABS: APPEARANCE,URINE CLEAR; BILIRUBIN,URINE NEGATIVE (NEGATIVE); COLOR,URINE YELLOW; GLUCOSE, URINE >=500 mg/dL (NEGATIVE); KETONES,URINE NEGATIVE (NEGATIVE); PROTEIN,URINE NEGATIVE (NEGATIVE); UROBILINOGEN,URINE NEGATIVE mg/dL (<2.0)
[2019-10-24 17:16] LABS: HEMATOCRIT 35.7 % (37.9-51.0); HEMOGLOBIN 11.9 g/dL (13.5-17.0); MEAN CORPUSCULAR HEMOGLOBIN 25.3 pg (27.0-33.4); MEAN CORPUSCULAR HGB CONC 33.5 g/dL (32.0-36.0); MEAN CORPUSCULAR VOLUME 76 fl (80-97); PLATELET COUNT 167 10^3/uL (150-450); RED BLOOD COUNT 4.72 10^6/uL (4.35-5.55); RED CELL DISTRIBUTION WIDTH 18.9 % (11.5-14.0); WHITE BLOOD COUNT 12.1 10^3/uL (4.0-10.5)
[2019-10-24 17:18] LABS: ALKALINE PHOSPHATASE 104 U/L (38-126); ANION GAP 9 (5-19); ASPARTATE AMINO TRANSFERASE 18 U/L (17-59); BILIRUBIN,TOTAL 1.1 mg/dL (0.2-1.3); BLOOD UREA NITROGEN 29 mg/dL (7-20); CALCIUM 9.5 mg/dL (8.4-10.2); CARBON DIOXIDE 32 mmol/L (22-30); CHLORIDE 94 mmol/L (98-107); GLUCOSE 192 mg/dL (75-110); POTASSIUM 3.7 mmol/L (3.6-5.0); TOTAL PROTEIN 7.4 g/dL (6.3-8.2)
[2019-10-24 17:50] LABS: ABSOLUTE LYMPHOCYTES# (MANUAL) 1.1 10^3/uL (0.5-4.7); ABSOLUTE MONOCYTES # (MANUAL) 0.4 10^3/uL (0.1-1.4); ANISOCYTOSIS 2+; BAND NEUTROPHILS % (MANUAL) 3 % (3-5); BASOPHILS % (MANUAL) 0 % (0-2); EOSINOPHILS % (MANUAL) 0 % (0-6); LYMPHOCYTES % (MANUAL) 9 % (13-45); MONOCYTES % (MANUAL) 3 % (3-13); SEGMENTED NEUTROPHILS % (MAN) 85 % (42-78); TOTAL CELLS COUNTED 100
[2019-10-24 17:51] LABS: PLATELET COMMENT ADEQUATE
[2019-10-24 18:00] LABS: A TYPE INFLUENZA AG NEGATIVE (NEGATIVE); B INFLUENZA AG NEGATIVE (NEGATIVE)
[2019-10-24] MEDS ORDERED: NORMAL SALINE 1000 ML 1,000 ML IV ONE (18:11)
--- NOTE | 2019-10-24 19:46 | ER Document Report ---
Entered by TUCKER BOYKIN SCRIBE 10/24/19 5721 Acting as scribe for:MICH FALL, DO ED Extremity Problem, Lower - General Chief Complaint: Hip Pain Stated Complaint: HIP PAIN Time Seen by Provider: 10/24/19 15:35 Primary Care Provider: KORINA RDZ MD [Primary Care Provider] - Follow up as needed Information source: Patient Notes: This 59-year-old male patient s/p kidney transplant presents to the emergency department today with complaints of bilateral hip and leg pain. Patient has had chronic pain similar to this which sounds like sciatica. Patient reports that yesterday he had an appointment with his orthopedic doctor who did back x-rays and told him that he had chronic changes and was going to schedule him for an MRI. Patient states the pain seems to begin in his hips and radiates down his legs and it is much worse today than it normally is. Patient states his orthopedic doctor gave him gabapentin yesterday which he has not taken because the last time he did it "made him do funny stuff". Patient states he has tried Flexeril and tramadol with no relief. Patient also complains of nausea, vomiting, chills, and fevers which began today. Patient denies any new or recent falls/trauma, urinary symptoms, or URI symptoms. TRAVEL OUTSIDE OF THE [place] IN LAST 30 DAYS: No - Related Data Allergies/Adverse Reactions: rivaroxaban [From Xarelto] Allergy (Severe, Verified 10/24/19 17:03) HEMORRHAGING ibuprofen Allergy (Mild, Verified 10/24/19 17:03) because of kidneys iodine [Iodine] Allergy (Mild, Verified 10/24/19 17:03) Hives ketorolac tromethamine [From Toradol] Adverse Reaction (Severe, Verified 10/24/19 17:03) Vomiting warfarin sodium [From Coumadin] Adverse Reaction (Severe, Verified 10/24/19 17:03) weakness enoxaparin sodium [From Lovenox] Adverse Reaction (Intermediate, Verified 10/24/19 17:03) falls promethazine HCl [From Phenergan] Adverse Reaction (Unknown, Verified 10/24/19 17:03) Vomiting gabapentin Adverse Reaction (Verified 10/24/19 17:03) chlorohexidine Allergy (Mild, Uncoded 02/20/20 17:03) Hives Past Medical History - General Information source: Patient - Social History Smoking Status: Former Smoker Cigarette use (# per day): No Frequency of alcohol use: None Drug Abuse: None Lives with: Family Family History: Reviewed & Not Pertinent - Past Medical History Cardiac Medical History: Reports: Hx Congestive Heart Failure, Hx Hypercholesterolemia, Hx Hypertension - NO MEDS, HX Pulmonary Medical History: Reports: Hx Bronchitis, Hx Pneumonia, Hx Tuberculosis Neurological Medical History: Denies: Hx Cerebrovascular Accident, Hx Seizures Endocrine Medical History: Reports: Hx Diabetes Mellitus Type 1, Hx Diabetes Mellitus Type 2 Renal/ Medical History: Reports: Hx End Stage Renal Disease, Hx Hemodialysis - home dialysis, Hx Kidney Stones. Denies: Hx Peritoneal Dialysis GI Medical History: Reports: Hx Gastroesophageal Reflux Disease Musculoskeletal Medical History: Reports Hx Arthritis - ALL OVER Psychiatric Medical History: Reports: Hx Depression Past Surgical History: Reports: Hx Abdominal Surgery - GASTRIC SLEEVE PROCEEDURE January 2013, Hx Cardiac Catheterization, Hx Kidney (Renal Surgery) - transplant, Hx Orthopedic Surgery - rt knee, rt hand rt elbow cataract blood clot left leg 2004, Hx Vascular Surgery - stents in left leg - Immunizations Hx Diphtheria, Pertussis, Tetanus Vaccination: Yes Hx Pneumococcal Vaccination: 09/04/17 Review of Systems - Review of Systems Constitutional: See HPI, Chills, Fever EENT: No symptoms reported Cardiovascular: No symptoms reported Respiratory: No symptoms reported Gastrointestinal: See HPI, Nausea, Vomiting Genitourinary: No symptoms reported Male Genitourinary: No symptoms reported Musculoskeletal: See HPI, Back pain, Joint pain Skin: No symptoms reported Hematologic/Lymphatic: No symptoms reported Neurological/Psychological: No symptoms reported -: Yes All other systems reviewed and negative Physical Exam - Vital signs Vitals: Temp Pulse Resp BP Pulse Ox 98.6 F 105 H 18 172/77 H 99 10/24/19 15:20 10/24/19 15:20 10/24/19 15:20 10/24/19 15:20 10/24/19 15:20 - Notes Notes: Physical Exam: General: Alert, appears uncomfortable. HEENT: Normocephalic. Atraumatic. PERRL. Extraocular movements intact. Oropharynx clear. Neck: Supple. Non-tender. Respiratory: No respiratory distress. Clear and equal breath sounds bilaterally. Cardiovascular: Regular rate and rhythm. Abdominal: Morbidly obese. Appears nauseated, emesis in bag at bedside. Healed abdominal scar consistent with kidney transplant history. Non-tender. No distension. Normal Bowel Sounds. Back: No gross abnormalities. No midline bony tenderness with palpation. No step-offs or deformities. Extremities: Moves all four extremities. Upper extremities: Normal inspection. Normal ROM. Lower extremities: Tenderness with palpation over bilateral SI joints. Neurological: Normal cognition. AAOx4. Normal speech. Psychological: Normal affect. Normal Mood. Skin: Warm. Dry. Normal color. Course - Re-evaluation Re-evalutation: 10/24/19 20:00 MDM 59 year old gentleman with hip pain - bilateral and some low back. Pain is bilateral and paraspinal. Seen by orhto yesterday and to get mri. No midline p ain with direct palpation here today. I considered epidural abcess but see no evidence. He has close follow up locally and will cover for influenza. He feels better here after 1 L NS. Discussed the importance of close follow up with him and family and they expressed understanding. Of course they are always welcome to return here and the workup would be escalated if he is worse in ant way. - Vital Signs Vital signs: Temp Pulse Resp BP Pulse Ox 98.6 F 105 H 18 172/77 H 99 10/24/19 15:20 10/24/19 15:20 10/24/19 15:20 10/24/19 15:20 10/24/19 15:20 - Laboratory Result Diagrams: 10/24/19 16:49 10/24/19 16:49 Laboratory results interpreted by me: 10/24/19 10/24/19 10/24/19 16:49 16:49 16:49 WBC 12.1 H Hgb 11.9 L Hct 35.7 L MCV 76 L MCH 25.3 L RDW 18.9 H Seg Neuts % (Manual) 85 H Lymphocytes % (Manual) 9 L Abs Neuts (Manual) 10.6 H Sodium 135.4 L Chloride 94 L Carbon Dioxide 32 H BUN 29 H Creatinine 1.73 H Est GFR ( Amer) 50 L Est GFR (MDRD) Non-Af 41 L Glucose 192 H Urine Glucose (UA) >=500 H Urine Blood MODERATE H - Diagnostic Test Radiology reviewed: Image reviewed, Reports reviewed Discharge - Discharge Clinical Impression: Dehydration, Febrile illness, acute, Renal insufficiency Condition: Good Disposition: HOME, SELF-CARE Instructions: Dehydration ([facility]), Fever ([facility]), Influenza ([facility]) Additional Instructions: Rest, plenty of fluids. Take tylenol for fever. Please return here for fever, worsening pain or other problems or concerns. Other problems include weakness that starts Prescriptions: Oseltamivir Phosphate [Tamiflu 75 mg Capsule] 75 mg PO BID #9 capsule Referrals: KORINA RDZ MD [Primary Care Provider] - Follow up as needed I personally performed the services described in the documentation, reviewed and edited the documentation which was dictated to the scribe in my presence, and it accurately records my words and actions.
[2019-10-24] MEDS ORDERED: OSELTAMIVIR PHOSPHATE 75 MG CAPSULE PO ONE (19:57)
--- NOTE | 2019-10-24 20:30 | RADIOLOGY REPORT (SQ) ---
EXAM DESCRIPTION: AP portable radiograph of the chest CLINICAL HISTORY: 59 years Male, fever COMPARISON: Two views of the chest July 09, 2018 FINDINGS: Lungs: Again identified is a nodular density projecting over the left lower lobe between the anterior sixth and seventh rib spaces. This measures 13 mm and is unchanged. No focal opacification. No pleural effusion or pneumothorax. Mediastinum: Cardiac silhouette is mildly enlarged. Mediastinum is minimally widened. There is mild upper lobe vessel distention and recruitment. Bones: Osseous structures are normal. Vascular stent projects over the left chest wall. The appearance is stable. IMPRESSION: No acute process. No significant interval change.
[2019-10-24 20:42] VITALS: BP 157/67
== END 2019-10-24 20:30 | disposition home or self-care (01) ==
LOC: ER 15:13
DX: E86.0 Dehydration (principal); N28.9 Disorder of kidney and ureter, unspecified; R50.9 Fever, unspecified; M25.551 Pain in right hip; M25.552 Pain in left hip; M79.604 Pain in right leg; M79.605 Pain in left leg; R11.2 Nausea with vomiting, unspecified; M54.5 Low back pain; Z79.899 Other long term (current) drug therapy; Z88.8 Allergy status to other drugs, medicaments and biological substances; Z87.891 Personal history of nicotine dependence; I11.0 Hypertensive heart disease with heart failure; I50.9 Heart failure, unspecified; E11.9 Type 2 diabetes mellitus without complications
CPT/HCPCS: 99283; 96361; 96374; 96375; 36415; 87040; 83605; 83690; 84443; 85025; 87077; 80053; 81001; 87804; 87150 ×26; 71045; A9270 ×2; J1170; J2405; J7030; 87186; J3490; S0119

== ENCOUNTER 2019-10-26 12:31 | Inpatient (IN) | payer MEDICARE, MEDICAID ==
--- NOTE | 2019-10-26 13:01 | ER Document Report ---
ED Medical Screen (RME) - General Chief Complaint: Leg Pain Stated Complaint: LEFT LEG PAIN Time Seen by Provider: 10/26/19 12:50 Primary Care Provider: KORINA RDZ MD [Primary Care Provider] - Follow up as needed Mode of Arrival: Wheelchair Information source: Patient Notes: 59-year-old male patient presented to the emergency department chief complaint of low back pain and left leg pain. Patient reports several week history of the low back pain that radiates around into the left anterior thigh. He reports history of DVT and history of renal transplant. Patient reports pain is severe and he is unable to ambulate on his leg. Patient has pants on so exam is limited in triage. I have greeted and performed a rapid initial assessment of this patient. A comprehensive ED assessment and evaluation of the patient, analysis of test results and completion of the medical decision making process will be conducted by additional ED providers. I have specifically instructed the patient or family members with the patient to immediately return to any nursing staff should anything change in the patient's condition or with their chief complaint. TRAVEL OUTSIDE OF THE [place] IN LAST 30 DAYS: No - Related Data Allergies/Adverse Reactions: rivaroxaban [From Xarelto] Allergy (Severe, Verified 10/26/19 12:47) HEMORRHAGING ibuprofen Allergy (Mild, Verified 10/26/19 12:47) because of kidneys iodine [Iodine] Allergy (Mild, Verified 10/26/19 12:47) Hives ketorolac tromethamine [From Toradol] Adverse Reaction (Severe, Verified 10/26/19 12:47) Vomiting warfarin sodium [From Coumadin] Adverse Reaction (Severe, Verified 10/26/19 12:47) weakness enoxaparin sodium [From Lovenox] Adverse Reaction (Intermediate, Verified 10/26/19 12:47) falls promethazine HCl [From Phenergan] Adverse Reaction (Unknown, Verified 10/26/19 12:47) Vomiting gabapentin Adverse Reaction (Verified 10/26/19 12:47) chlorohexidine Allergy (Mild, Uncoded 10/26/19 12:47) Hives Past Medical History - Social History Chew tobacco use (# tins/day): No Frequency of alcohol use: None Drug Abuse: None - Past Medical History Cardiac Medical History: Reports: Hx Congestive Heart Failure, Hx Hypercholesterolemia, Hx Hypertension - NO MEDS, HX Denies: Hx Coronary Artery Disease, Hx Heart Attack Pulmonary Medical History: Reports: Hx Bronchitis, Hx Pneumonia, Hx Tuberculosis Denies: Hx Asthma, Hx COPD Neurological Medical History: Denies: Hx Cerebrovascular Accident, Hx Seizures Endocrine Medical History: Reports: Hx Diabetes Mellitus Type 1, Hx Diabetes Mellitus Type 2 Renal/ Medical History: Reports: Hx End Stage Renal Disease, Hx Hemodialysis - home dialysis, Hx Kidney Stones. Denies: Hx Peritoneal Dialysis GI Medical History: Reports: Hx Gastroesophageal Reflux Disease Musculoskeltal Medical History: Reports Hx Arthritis - ALL OVER Psychiatric Medical History: Reports: Hx Depression Past Surgical History: Reports: Hx Abdominal Surgery - GASTRIC SLEEVE PROCEEDURE January 2013, Hx Cardiac Catheterization, Hx Kidney (Renal Surgery) - transplant, Hx Orthopedic Surgery - rt knee, rt hand rt elbow cataract blood clot left leg 2004, Hx Vascular Surgery - stents in left leg - Immunizations Hx Diphtheria, Pertussis, Tetanus Vaccination: Yes Physical Exam - Vital signs Vitals: Temp Pulse Resp BP Pulse Ox 98.5 F 97 20 155/70 H 98 10/26/19 12:45 10/26/19 12:45 10/26/19 12:45 10/26/19 12:45 10/26/19 12:45 Course - Vital Signs Vital signs: Temp Pulse Resp BP Pulse Ox 98.5 F 97 20 155/70 H 98 10/26/19 12:45 10/26/19 12:45 10/26/19 12:45 10/26/19 12:45 10/26/19 12:45 Doctor's Discharge - Discharge Referrals: KORINA RDZ MD [Primary Care Provider] - Follow up as needed
[2019-10-26] MEDS ORDERED: HYDROMORPHONE HCL INJ/PF 2 MG/ML AMPULE IV ONE (14:00)
[2019-10-26] MEDS ORDERED: ONDANSETRON HCL INJ/PF 4 MG/2 ML SDV IV ONE (14:01)
--- NOTE | 2019-10-26 14:03 | ER Document Report ---
ED Extremity Problem, Lower - General Chief Complaint: Leg Pain Stated Complaint: LEFT LEG PAIN Time Seen by Provider: 10/26/19 12:50 Primary Care Provider: KORINA RDZ MD [Primary Care Provider] - Follow up as needed Mode of Arrival: Wheelchair Information source: Patient Notes: 59-year-old man presenting to the emergency department with a history of left lower extremity pain. Apparently, he had a vein stripping performed approximately 2 weeks ago. He is also had a history of some back pain. He is now complaining that he is unable to put weight on his left lower extremity due to swelling and pain in the hip and knee area. Denies any known injury. He was seen by the orthopedist and has a MRI of the lumbar spine scheduled for Monday. He is here today because the pain has worsened. States he called his primary physician and was told to come to the emergency department to exclude a DVT. Patient has a history of a kidney transplant and unable to take NSAIDs. TRAVEL OUTSIDE OF THE [place] IN LAST 30 DAYS: No - Related Data Allergies/Adverse Reactions: rivaroxaban [From Xarelto] Allergy (Severe, Verified 10/26/19 12:47) HEMORRHAGING ibuprofen Allergy (Mild, Verified 10/26/19 12:47) because of kidneys iodine [Iodine] Allergy (Mild, Verified 10/26/19 12:47) Hives ketorolac tromethamine [From Toradol] Adverse Reaction (Severe, Verified 10/26/19 12:47) Vomiting warfarin sodium [From Coumadin] Adverse Reaction (Severe, Verified 10/26/19 12:47) weakness enoxaparin sodium [From Lovenox] Adverse Reaction (Intermediate, Verified 10/26/19 12:47) falls promethazine HCl [From Phenergan] Adverse Reaction (Unknown, Verified 10/26/19 12:47) Vomiting gabapentin Adverse Reaction (Verified 10/26/19 12:47) chlorohexidine Allergy (Mild, Uncoded 10/26/19 12:47) Hives Past Medical History - General Information source: Patient - Social History Smoking Status: Never Smoker Chew tobacco use (# tins/day): No Frequency of alcohol use: None Drug Abuse: None Family History: Reviewed & Not Pertinent Patient has suicidal ideation: No Patient has homicidal ideation: No - Past Medical History Cardiac Medical History: Reports: Hx Congestive Heart Failure, Hx Hypercholesterolemia, Hx Hypertension - NO MEDS, HX Denies: Hx Coronary Artery Disease, Hx Heart Attack Pulmonary Medical History: Reports: Hx Bronchitis, Hx Pneumonia, Hx Tuberculosis Denies: Hx Asthma, Hx COPD Neurological Medical History: Denies: Hx Cerebrovascular Accident, Hx Seizures Endocrine Medical History: Reports: Hx Diabetes Mellitus Type 1, Hx Diabetes Mellitus Type 2 Renal/ Medical History: Reports: Hx End Stage Renal Disease, Hx Hemodialysis - home dialysis, Hx Kidney Stones. Denies: Hx Peritoneal Dialysis GI Medical History: Reports: Hx Gastroesophageal Reflux Disease Musculoskeletal Medical History: Reports Hx Arthritis - ALL OVER Psychiatric Medical History: Reports: Hx Depression Past Surgical History: Reports: Hx Abdominal Surgery - GASTRIC SLEEVE PROCEEDURE January 2013, Hx Cardiac Catheterization, Hx Kidney (Renal Surgery) - transplant, Hx Orthopedic Surgery - rt knee, rt hand rt elbow cataract blood clot left leg 2004, Hx Vascular Surgery - stents in left leg - Immunizations Hx Diphtheria, Pertussis, Tetanus Vaccination: Yes Hx Pneumococcal Vaccination: 09/04/17 Review of Systems - Review of Systems Notes: Constitutional: Negative for fever. HENT: Negative for sore throat. Eyes: Negative for visual changes. Cardiovascular: Negative for chest pain. Respiratory: Negative for shortness of breath. Gastrointestinal: Negative for abdominal pain, vomiting or diarrhea. Genitourinary: Negative for dysuria. Musculoskeletal: + Back pain. + Left lower extremity pain, + left knee pain Skin: Negative for rash. Neurological: Negative for headaches, weakness or numbness. 10 point ROS negative except as marked above and in HPI. Physical Exam - Vital signs Vitals: Temp Pulse Resp BP Pulse Ox 98.5 F 97 20 155/70 H 98 10/26/19 12:45 10/26/19 12:45 10/26/19 12:45 10/26/19 12:45 10/26/19 12:45 - Notes Notes: PHYSICAL EXAMINATION: Physical Exam: General: Well-nourished well-developed 59-year-old man in moderate distress sec ondary to pain. HEENT: NC/AT, pupils equal round and reactive to light, MM moist,nares clear, oropharynx clear, airway patent Neck: supple, no adenopathy, no masses. Good range of motion Lungs: clear, no wheezing, no rales no rhonchi CVS: Regular rate and rhythm no murmur gallop or rub Abdomen: Soft, active, nontender, no masses, no hepatosplenomegaly Ext: Tenderness in the left hip, left knee with swelling and tenderness, decreased range of motion secondary to pain.. Neuro: Alert and responsive, moving all 4 extremities on command, cranial nerves intact, no focal findings Skin: Intact no open lesions, no rash PSYCH: Normal mood, normal affect. Course - Re-evaluation Re-evalutation: 10/26/19 21:46 Patient has been treated in the emergency department IV fluids, IV narcotic medications along with IV steroids. He has had some improvement of pain, however he is still unable to ambulate. Potassium was noted to be 2.9 the patient received 40 mEq of potassium orally and potassium rider of 20 mEq. I discussed the patient with the hospitalist, Dr. Allan he will admit the patient to the hospitalist service management of pain and possibly orthopedic consultation regarding the left knee swelling and pain. - Vital Signs Vital signs: Temp Pulse Resp BP Pulse Ox 99.0 F 92 16 173/68 H 95 10/26/19 19:19 10/26/19 19:19 10/26/19 19:19 10/26/19 19:19 10/26/19 19:19 - Laboratory Result Diagrams: 10/26/19 14:05 10/26/19 14:05 Laboratory results interpreted by me: 10/26/19 10/26/19 10/26/19 14:05 14:05 14:30 Hgb 11.1 L Hct 33.4 L MCV 75 L MCH 24.9 L RDW 18.4 H Lymph % (Auto) 9.5 L Seg Neutrophils % 78.2 H Sodium 136.0 L Potassium 2.9 L* Chloride 91 L Carbon Dioxide 35 H BUN 28 H Creatinine 1.50 H Est GFR ( Amer) 58 L Est GFR (MDRD) Non-Af 48 L Glucose 184 H C-Reactive Protein 289.5 H Urine Protein 30 H Urine Glucose (UA) 50 H Urine Blood LARGE H - Diagnostic Test Radiology reviewed: Image reviewed, Reports reviewed - Venous Doppler of the left lower extremity, no DVT, superficial saphenous vein thrombosis. Discharge - Discharge Clinical Impression: Hypokalemia, Inability to ambulate due to knee, Acute superficial venous thrombosis of left lower extremity Left knee pain Qualifiers: Chronicity: acute Qualified Code(s): M25.562 - Pain in left knee Gout attack Qualifiers: Gout site: knee Gout etiology: idiopathic Laterality: left Qualified Code(s): M10.062 - Idiopathic gout, left knee Hypertension Qualifiers: Hypertension type: essential hypertension Qualified Code(s): I10 - Essential (primary) hypertension Disposition: ADMITTED INPATIENT Admitting Provider: Sanjana (Hospitalist) Unit Admitted: Medical Floor Referrals: KORINA RDZ MD [Primary Care Provider] - Follow up as needed
[2019-10-26 14:28] LABS: ABSOLUTE LYMPHOCYTES (AUTO) 0.7 10^3/uL (0.5-4.7); ABSOLUTE MONOCYTES (AUTO) 0.8 10^3/uL (0.1-1.4); ABSOLUTE NEUT (AUTO) 5.4 10^3/uL (1.7-8.2); BASOPHILS % (AUTO) 0.1 % (0-2); EOSINOPHILS % (AUTO) 0.1 % (0-6); HEMATOCRIT 33.4 % (37.9-51.0); HEMOGLOBIN 11.1 g/dL (13.5-17.0); LYMPHOCYTES % (AUTO) 9.5 % (13-45); MEAN CORPUSCULAR HEMOGLOBIN 24.9 pg (27.0-33.4); MEAN CORPUSCULAR HGB CONC 33.2 g/dL (32.0-36.0); MEAN CORPUSCULAR VOLUME 75 fl (80-97); MONOCYTES % (AUTO) 12.1 % (3-13); PLATELET COUNT 163 10^3/uL (150-450); RED BLOOD COUNT 4.47 10^6/uL (4.35-5.55); RED CELL DISTRIBUTION WIDTH 18.4 % (11.5-14.0); SEGMENTED NEUTROPHILS % (AUTO) 78.2 % (42-78); TOTAL CELLS COUNTED % (AUTO) 100 %; WHITE BLOOD COUNT 6.9 10^3/uL (4.0-10.5)
[2019-10-26 14:39] LABS: ALBUMIN 3.6 g/dL (3.5-5.0); ALKALINE PHOSPHATASE 101 U/L (38-126); ANION GAP 10 (5-19); ASPARTATE AMINO TRANSFERASE 24 U/L (17-59); BILIRUBIN,DIRECT 0.3 mg/dL (0.0-0.4); BILIRUBIN,TOTAL 0.8 mg/dL (0.2-1.3); BLOOD UREA NITROGEN 28 mg/dL (7-20); CALCIUM 9.1 mg/dL (8.4-10.2); CARBON DIOXIDE 35 mmol/L (22-30); CHLORIDE 91 mmol/L (98-107); GLUCOSE 184 mg/dL (75-110); TOTAL PROTEIN 7.4 g/dL (6.3-8.2)
[2019-10-26 14:40] LABS: POTASSIUM 2.9 mmol/L (3.6-5.0)
[2019-10-26 15:06] LABS: C-REACTIVE PROTEIN 289.5 mg/L (<10.0)
[2019-10-26 15:29] LABS: APPEARANCE,URINE SLIGHTLY-CLOUDY; BILIRUBIN,URINE NEGATIVE (NEGATIVE); COLOR,URINE YELLOW; GLUCOSE, URINE 50 mg/dL (NEGATIVE); KETONES,URINE NEGATIVE (NEGATIVE); LEUKOCYTE ESTERASE,URINE NEGATIVE (NEGATIVE); NITRITE,URINE NEGATIVE (NEGATIVE); PROTEIN,URINE 30 mg/dL (NEGATIVE); URINE SPECIFIC GRAVITY 1.012; UROBILINOGEN,URINE NEGATIVE mg/dL (<2.0)
[2019-10-26] MEDS ORDERED: POTASSIUM CHLORIDE 10 MEQ TABLET.ER PO ONE (16:43)
[2019-10-26] MEDS ORDERED: POTASSI CL 20 MEQ/50 ML RIDER 20 MEQ/50 ML RTUPB IV ONE (16:44)
[2019-10-26] MEDS ORDERED: DEXAMETHASONE SOD PHOS INJ 10 MG/1 ML VIAL IV ONE (16:46)
[2019-10-26] MEDS ORDERED: HYDROMORPHONE HCL 2 MG TABLET PO ONE (16:48)
[2019-10-26] MEDS ORDERED: DEXTROSE 40% GEL 15 GM TUBE PO PRN ×2 (22:31)
[2019-10-26] MEDS ORDERED: DEXTROSE 50%-WATER 25 GM/50 ML DISP.SYRIN IV PRN ×2 (22:31)
[2019-10-26] MEDS ORDERED: GLUCAGON,HUMAN RECOMB 1 MG INJ IM PRN (22:31)
[2019-10-26] MEDS ORDERED: COLCHICINE 0.6 MG TABLET PO ONE (22:45)
[2019-10-27] MEDS ORDERED: MAGNESIUM HYDROXIDE SUSP 30 ML UDCUP PO PRN (00:25)
[2019-10-27] MEDS ORDERED: MAG HYDROX/AL HYDROX/SIMETH SUSP 30 ML UDCUP PO PRN (00:25)
[2019-10-27] MEDS ORDERED: ONDANSETRON HCL INJ/PF 4 MG/2 ML SDV IV PRN (00:25)
[2019-10-27] MEDS ORDERED: INFLUENZA QUAD (6MOS+) 2019-20 VAC 0.5 ML SYR IM ONE (00:33)
[2019-10-27] MEDS ORDERED: ACETAMINOPHEN 325 MG TABLET PO PRN (00:34)
[2019-10-27] MEDS: HYDROMORPHONE HCL INJ/PF 2 MG/ML AMPULE IV PRN ×3 (01:44→12:55)
--- NOTE | 2019-10-27 01:51 | PDOC H&P ---
History of Present Illness Admission Date/PCP: 10/26/19 21:53 KORINA RDZ MD Patient complains of: Left knee pain History of Present Illness: SHI SIDDIQI is a 59 year old male who presented to the emergency room with a 2-day history of left knee pain. He admits the gradual onset and worsening of a constant pressure pain, which is now become severe, in his left knee without radiation. The left knee pain is worsened by movement or attempts at weightbearing and is accompanied by gradually increasing redness and swelling with warmth to touch of the left knee. The left knee pain is associated with a recent vein stripping procedure performed on his left leg and chronic back pain with radiation into his left hip which was recently evaluated by an orthopedic surgeon. He contacted his primary care physician, today, who recommended he come to the emergency room to be evaluated for DVT. In the emergency room he was found to have typical acute gout affecting his left knee with a left knee effusion. Patient was in extreme pain and unable to bear weight to ambulate on his left lower extremity even with the use of a walker. He was subsequently admitted to hospital for further evaluation treatment. Past Medical History Cardiac Medical History: Reports: Congestive Heart Failure, DVT, Hyperlipidema, Hypertension, Peripheral Vascular Disease Denies: Atrial Fibrillation, Coronary Artery Disease, Myocardial Infarction, Pulmonary Embolism Pulmonary Medical History: Reports: Bronchitis, Pneumonia, Tuberculosis Denies: Asthma, Chronic Obstructive Pulmonary Disease (COPD) EENT Medical History: Reports: Cataracts Denies: Ears - Hearing aids Neurological Medical History: Reports: Other - Diabetic polyneuropathy Denies: Hemorrhagic CVA, Ischemic CVA, Seizures Endocrine Medical History: Reports: Diabetes Mellitus Type 2, Obesity Denies: Diabetes Mellitus Type 1, Hyperthyroidism, Hypothyroidism Renal/ Medical History: Reports: Chronic Kidney Disease, End Stage Renal Disease - Status post renal transplant, Other - Diabetic nephropathy Denies: Nephrolithiasis Malignancy Medical History: Reports: None GI Medical History: Reports: Gastroesophageal Reflux Disease Denies: Cirrhosis, Crohn's Disease, Hepatitis, Peptic Ulcer Disease, Ulcerative Colitis Musculoskeltal Medical History: Reports: Arthritis - Generalized, Gout, Other - Chronic back pain Skin Medical History: Denies: Eczema, Psoriasis Psychiatric Medical History: Reports: Depression Denies: Alcohol Dependency, Substance Abuse, Tobacco Dependency Traumatic Medical History: Reports: None Hematology: Reports: Anemia - Chronic Denies: Bleeding Tendencies Infectious Medical History: Reports: None Past Surgical History Past Surgical History: Reports: Cardiac Catheterization, Orthopedic Surgery - rt knee, rt hand, rt elbow, Renal Transplant, Vascular Surgery - stents in bilateral legs, tunnel AV grafts for dialysis, Other - Cataract surgery, gastric sleeve surgery Social History Information Source: Patient Lives with: Family Smoking Status: Never Smoker Electronic Cigarette use?: No Frequency of Alcohol Use: None Hx Recreational Drug Use: No Drugs: None Hx Prescription Drug Abuse: No - Advance Directive Resuscitation Status: Full Code Surrogate healthcare decision maker:: Trisha Siddiqi Family History Family History: CAD, DM, Hypertension, Malignancy Parental Family History Reviewed: Yes Children Family History Reviewed: No Sibling(s) Family History Reviewed.: Yes Medication/Allergy Home Medications: Aspirin [Ecotrin] 81 mg PO DAILY 12/23/16 Famotidine 20 mg PO BID 12/23/16 Furosemide [Lasix] 40 mg PO QPM 12/23/16 Furosemide [Lasix] 80 mg PO QAM 12/23/16 Insulin Aspart [Novolog Flexpen] See Protocol SQ TID 12/23/16 Insulin Detemir [Levemir Flextouch] 50 unit SQ QHS 12/23/16 Mycophenolate Sodium [Myfortic 180 mg Tablet.dr] 360 mg PO BID 12/23/16 Prednisone 5 mg PO DAILY 12/23/16 Sennosides/Docusate Sodium [Docusate Sodium-Senna Tablet] 1 each PO BID 12/23/16 Tacrolimus [Envarsus Xr] 15 mg PO QAM 12/23/16 Tamsulosin HCl 0.4 mg PO DAILY 12/23/16 Rosuvastatin Calcium 5 mg PO QHS 07/02/18 Levofloxacin [Levaquin 750 mg Tablet] 750 mg PO DAILY #10 tablet 09/03/19 Phenazopyridine HCl [Pyridium 100 Mg Tablet] 100 mg PO Q8 PRN #6 tablet 09/03/19 Oseltamivir Phosphate [Tamiflu 75 mg Capsule] 75 mg PO BID #9 capsule 10/24/19 Allergies/Adverse Reactions: rivaroxaban [From Xarelto] Allergy (Severe, Verified 10/26/19 12:47) HEMORRHAGING ibuprofen Allergy (Mild, Verified 10/26/19 12:47) because of kidneys iodine [Iodine] Allergy (Mild, Verified 10/26/19 12:47) Hives ketorolac tromethamine [From Toradol] Adverse Reaction (Severe, Verified 10/26/19 12:47) Vomiting warfarin sodium [From Coumadin] Adverse Reaction (Severe, Verified 10/26/19 12:47) weakness enoxaparin sodium [From Lovenox] Adverse Reaction (Intermediate, Verified 10/26/19 12:47) falls promethazine HCl [From Phenergan] Adverse Reaction (Unknown, Verified 10/26/19 12:47) Vomiting gabapentin Adverse Reaction (Verified 10/26/19 12:47) chlorohexidine Allergy (Mild, Uncoded 10/26/19 12:47) Hives Review of Systems Constitutional: ABSENT: chills, fever(s) Eyes: ABSENT: visual disturbances, other - Eye pain Ears: ABSENT: hearing changes, other - Ear pain Nose, Mouth, and Throat: ABSENT: headache(s), mouth pain, sore throat Cardiovascular: ABSENT: chest pain, palpitations Respiratory: ABSENT: cough, dyspnea Gastrointestinal: ABSENT: abdominal pain, constipation, diarrhea, nausea, vomiting Genitourinary: ABSENT: dysuria, hematuria Musculoskeletal: PRESENT: as per HPI, back pain, joint swelling Integumentary: PRESENT: as per HPI, erythema. ABSENT: diaphoresis, pruritus, rash Neurological: ABSENT: confusion, convulsions, focal weakness, memory loss, syncope Psychiatric: ABSENT: anxiety, depression Endocrine: ABSENT: cold intolerance, heat intolerance, polydipsia, polyphagia, polyuria Hematologic/Lymphatic: ABSENT: easy bleeding, easy bruising Allergic/Immunologic: ABSENT: seasonal rhinorrhea Physical Exam Vital Signs: Temp Pulse Resp BP Pulse Ox 98.9 F 87 20 165/75 H 95 10/26/19 22:00 10/26/19 22:00 10/26/19 22:00 10/26/19 22:00 10/26/19 22:00 Intake & Output 10/24/19 10/25/19 10/26/19 23:59 23:59 23:59 Intake Total 50 Balance 50 Weight 171.3 kg General appearance: PRESENT: cooperative, mild distress - Secondary to knee pain, morbidly obese Head exam: PRESENT: atraumatic, normocephalic Eye exam: PRESENT: conjunctiva pink. ABSENT: conjunctival injection, scleral icterus Ear exam: PRESENT: normal external ear exam. ABSENT: bleeding, drainage Mouth exam: PRESENT: dry mucosa, neck supple Neck exam: ABSENT: thyromegaly, tracheal deviation Respiratory exam: PRESENT: clear to auscultation vick, symmetrical, unlabored Cardiovascular exam: PRESENT: RRR. ABSENT: clicks, gallop, rubs Pulses: PRESENT: normal radial pulses, +1 pedal pulses bilateral Vascular exam: PRESENT: normal capillary refill GI/Abdominal exam: PRESENT: normal bowel sounds, soft. ABSENT: tenderness Rectal exam: PRESENT: deferred Extremities exam: PRESENT: joint swelling - Left knee with erythema and swelling/effusion, tenderness - Left knee with marked tenderness on palpation or range of motion both active and passive. Musculoskeletal exam: ABSENT: ambulatory, deformity, dislocation Neurological exam: PRESENT: alert, oriented to person, oriented to place, oriented to time, oriented to situation, CN II-XII grossly intact. ABSENT: kristin r sensory deficit Psychiatric exam: PRESENT: appropriate affect, normal mood Skin exam: PRESENT: dry, intact, warm. ABSENT: jaundice, rash, urticaria Results Laboratory Results: 10/26/19 14:05 10/26/19 14:05 10/26/19 10/26/19 10/26/19 14:05 14:05 14:30 WBC 6.9 RBC 4.47 Hgb 11.1 L Hct 33.4 L MCV 75 L MCH 24.9 L MCHC 33.2 RDW 18.4 H Plt Count 163 Seg Neutrophils % 78.2 H Sodium 136.0 L Potassium 2.9 L* Chloride 91 L Carbon Dioxide 35 H Anion Gap 10 BUN 28 H Creatinine 1.50 H Est GFR ( Amer) 58 L Glucose 184 H Calcium 9.1 Total Bilirubin 0.8 AST 24 Alkaline Phosphatase 101 C-Reactive Protein 289.5 H Total Protein 7.4 Albumin 3.6 Urine Color YELLOW Urine Appearance SLIGHTLY-CLOUDY Urine pH 6.0 Ur Specific Stone 1.012 Urine Protein 30 H Urine Glucose (UA) 50 H Urine Ketones NEGATIVE Urine Blood LARGE H Urine Nitrite NEGATIVE Ur Leukocyte Esterase NEGATIVE Urine WBC (Auto) 4 Urine RBC (Auto) 29 Assessment and Plan - Diagnosis (1) Acute gout due to renal impairment involving knee Qualifiers: Laterality: left Qualified Code(s): M10.362 - Gout due to renal impairment, left knee Is this a current diagnosis for this admission?: Yes (2) Hypokalemia Is this a current diagnosis for this admission?: Yes (3) Left knee pain Qualifiers: Chronicity: acute Qualified Code(s): M25.562 - Pain in left knee Is this a current diagnosis for this admission?: Yes (4) Chronic kidney disease (CKD) Qualifiers: Chronic kidney disease stage: unspecified stage Qualified Code(s): N18.9 - Chronic kidney disease, unspecified Is this a current diagnosis for this admission?: Yes (5) Renal transplant recipient Is this a current diagnosis for this admission?: Yes (6) Hypertension Qualifiers: Hypertension type: essential hypertension Qualified Code(s): I10 - Essential (primary) hypertension Is this a current diagnosis for this admission?: Yes (7) Chronic congestive heart failure Qualifiers: Heart failure type: unspecified Qualified Code(s): I50.9 - Heart failure, unspecified Is this a current diagnosis for this admission?: Yes (8) Hyperlipidemia Qualifiers: Hyperlipidemia type: unspecified Qualified Code(s): E78.5 - Hyperlipidemia, unspecified Is this a current diagnosis for this admission?: Yes (9) Morbid obesity Is this a current diagnosis for this admission?: Yes - Plan Summary Summary: Patient is admitted to the medical floor where he will receive routine supportive and symptomatic cares. He will be started on oral colchicine therapy. A nephrology consult will be obtained when nephrology services are again available for consideration of ongoing colchicine and or allopurinol therapy. An orthopedic consultation will be obtained with Dr. Haider Perera. Patient received Dilaudid 0.5 to 2 mg IV every 3 hours as needed for pain. He will be treated with a diabetic restricted, cardiac restricted and prerenal restricted diet. He will be continued on his usual home medications as approp riate with therapeutic/formulary substitution as required. He will receive oral potassium repletion therapy. His CBC, magnesium level and metabolic profile will be monitored as needed. - Time Time Spent with patient: 15-24 minutes Medications reviewed and adjusted accordingly: Yes Anticipated discharge: Home - Inpatient Certification Based on my medical assessment, after consideration of the patient's comorbidities, presenting symptoms, or acuity I expect that the services needed warrant INPATIENT care.: Yes I certify that my determination is in accordance with my understanding of Medicare's requirements for reasonable and necessary INPATIENT services [42 CFR 412.3e].: Yes Medical Necessity: Significant Comorbidiites Make Outpatient Treatment Too Risky, Need Close Monitoring Due to Risk of Patient Decompensation, Need for Pain Control, Risk of Complication if Not Cared For in Hospital
[2019-10-27] MEDS ORDERED: PANTOPRAZOLE SODIUM 40 MG TABLET.DR PO SCH (06:00)
[2019-10-27] MEDS: HEPARIN SOD (PORCINE) 5,000 UNIT/ML 1 ML VIAL SUBCUT SCH ×3 (06:26→22:16)
[2019-10-27] MEDS: DEXAMETHASONE SOD PHOSPHATE INJ 4 MG/1 ML VIAL IV SCH ×3 (06:27→22:11)
[2019-10-27] MEDS: INSULIN GLARGINE,HUM.REC.ANLOG 1,000 UNIT/10 ML VIAL SUBCUT SCH ×2 (06:55→22:12)
--- NOTE | 2019-10-27 08:20 | PDOC CONSULTATION ---
Consultation Consult Date: 10/27/19 Provider Consulted: ARIE LÓPEZ JR History of Present Illness Admission Date/PCP: 10/26/19 21:53 KORINA RDZ MD History of Present Illness: SHI SIDDIQI is a 59 year old male with an increasing 2-day history of left knee pain that is gradual in onset and worsening, worse with ambulation, improved with rest and [id number] pain medication. He has associated swelling and warmth. He reports a remote history of right knee gout. Has not had recent gout in his feet or otherwise. Denies any recent fevers chills. Denies any recent left knee injury. He initially presented to the emergency department for evaluation of the DVT. Pain is aching and burning in nature, 6 out of 10. Past Medical History Cardiac Medical History: Reports: Congestive Heart Failure, DVT, Hyperlipidema, Hypertension, Peripheral Vascular Disease Denies: Atrial Fibrillation, Coronary Artery Disease, Myocardial Infarction, Pulmonary Embolism Pulmonary Medical History: Reports: Bronchitis, Pneumonia, Tuberculosis Denies: Asthma, Chronic Obstructive Pulmonary Disease (COPD) EENT Medical History: Reports: Cataracts Denies: Ears - Hearing aids Neurological Medical History: Reports: Other - Diabetic polyneuropathy Denies: Hemorrhagic CVA, Ischemic CVA, Seizures Endocrine Medical History: Reports: Diabetes Mellitus Type 2, Obesity Denies: Diabetes Mellitus Type 1, Hyperthyroidism, Hypothyroidism Renal/ Medical History: Reports: Chronic Kidney Disease, End Stage Renal Disease - Status post renal transplant, Other - Diabetic nephropathy Denies: Nephrolithiasis Malignancy Medical History: Reports: None GI Medical History: Reports: Gastroesophageal Reflux Disease Denies: Cirrhosis, Crohn's Disease, Hepatitis, Peptic Ulcer Disease, Ulcerative Colitis Musculoskeltal Medical History: Reports: Arthritis - Generalized, Gout, Other - Chronic back pain Skin Medical History: Denies: Eczema, Psoriasis Psychiatric Medical History: Reports: None, Depression Denies: Alcohol Dependency, Substance Abuse, Tobacco Dependency Traumatic Medical History: Reports: None Hematology: Reports: Anemia - Chronic Denies: Bleeding Tendencies Infectious Medical History: Reports: None Past Surgical History Past Surgical History: Reports: Cardiac Catheterization, Orthopedic Surgery - rt knee, rt hand, rt elbow, Renal Transplant, Vascular Surgery - stents in bilateral legs, tunnel AV grafts for dialysis, Other - Cataract surgery, gastric sleeve surgery Social History Lives with: Family Smoking Status: Never Smoker Electronic Cigarette use?: No Frequency of Alcohol Use: None Hx Recreational Drug Use: No Drugs: None Hx Prescription Drug Abuse: No - Advance Directive Resuscitation Status: Full Code Family History Family History: CAD, DM, Hypertension, Malignancy Parental Family History Reviewed: No Children Family History Reviewed: NA Sibling(s) Family History Reviewed.: NA Medication/Allergy Home Medications: Aspirin [Ecotrin] 81 mg PO DAILY 12/23/16 Famotidine 20 mg PO BID 12/23/16 Furosemide [Lasix] 40 mg PO QPM 12/23/16 Furosemide [Lasix] 80 mg PO QAM 12/23/16 Insulin Aspart [Novolog Flexpen] See Protocol SQ TID 12/23/16 Insulin Detemir [Levemir Flextouch] 50 unit SQ QHS 12/23/16 Mycophenolate Sodium [Myfortic 180 mg Tablet.dr] 360 mg PO BID 12/23/16 Prednisone 5 mg PO DAILY 12/23/16 Sennosides/Docusate Sodium [Docusate Sodium-Senna Tablet] 1 each PO BID 12/23/16 Tacrolimus [Envarsus Xr] 15 mg PO QAM 12/23/16 Tamsulosin HCl 0.4 mg PO DAILY 12/23/16 Rosuvastatin Calcium 5 mg PO QHS 07/02/18 Levofloxacin [Levaquin 750 mg Tablet] 750 mg PO DAILY #10 tablet 09/03/19 Phenazopyridine HCl [Pyridium 100 Mg Tablet] 100 mg PO Q8 PRN #6 tablet 09/03/19 Oseltamivir Phosphate [Tamiflu 75 mg Capsule] 75 mg PO BID #9 capsule 10/24/19 Allergies/Adverse Reactions: rivaroxaban [From Xarelto] Allergy (Severe, Verified 10/26/19 12:47) HEMORRHAGING ibuprofen Allergy (Mild, Verified 10/26/19 12:47) because of kidneys iodine [Iodine] Allergy (Mild, Verified 10/26/19 12:47) Hives ketorolac tromethamine [From Toradol] Adverse Reaction (Severe, Verified 10/26/19 12:47) Vomiting warfarin sodium [From Coumadin] Adverse Reaction (Severe, Verified 10/26/19 12:47) weakness enoxaparin sodium [From Lovenox] Adverse Reaction (Intermediate, Verified 10/26/19 12:47) falls promethazine HCl [From Phenergan] Adverse Reaction (Unknown, Verified 10/26/19 12:47) Vomiting gabapentin Adverse Reaction (Verified 10/26/19 12:47) chlorohexidine Allergy (Mild, Uncoded 10/26/19 12:47) Hives Review of Systems Review of Systems: Constitutional: ABSENT: anorexia, chills, night sweats Cardiovascular: ABSENT: chest pain Respiratory: ABSENT: dyspnea Gastrointestinal: ABSENT: vomiting Genitourinary: ABSENT: dysuria Integumentary: ABSENT: rash Neurological: ABSENT: confusion, memory loss, numbness Psychiatric: ABSENT: hallucinations Hematologic/Lymphatic: ABSENT: easy bleeding All negative as above aside from that reported in the HPI Physical Exam Vital Signs: Temp Pulse Resp BP Pulse Ox 97.7 F 84 17 184/82 H 98 10/27/19 05:07 10/27/19 05:07 10/27/19 05:07 10/27/19 05:07 10/27/19 05:07 Intake & Output 10/26/19 10/27/19 10/28/19 06:59 06:59 06:59 Intake Total 50 Balance 50 Weight 163.2 kg Physical Exam: General appearance: PRESENT: cooperative, mild distress - Secondary to knee pain, morbidly obese Head exam: PRESENT: atraumatic, normocephalic Eye exam: PRESENT: conjunctiva pink. ABSENT: conjunctival injection, scleral icterus Ear exam: PRESENT: normal external ear exam. ABSENT: bleeding, drainage Mouth exam: PRESENT: dry mucosa, neck supple Neck exam: ABSENT: thyromegaly, tracheal deviation Respiratory exam: PRESENT: clear to auscultation vick, symmetrical, unlabored Cardiovascular exam: PRESENT: RRR. ABSENT: clicks, gallop, rubs Pulses: PRESENT: normal radial pulses, +1 pedal pulses bilateral Vascular exam: PRESENT: normal capillary refill GI/Abdominal exam: PRESENT: normal bowel sounds, soft. ABSENT: tenderness Rectal exam: PRESENT: deferred Extremities exam: PRESENT: joint swelling - Left knee with erythema and swelling/effusion, tenderness - Left knee with marked tenderness on palpation or range of motion both active and passive. Musculoskeletal exam: ABSENT: ambulatory, deformity, dislocation Neurological exam: PRESENT: alert, oriented to person, oriented to place, oriented to time, oriented to situation, CN II-XII grossly intact. ABSENT: motor sensory deficit Psychiatric exam: PRESENT: appropriate affect, normal mood Skin exam: PRESENT: dry, intact, warm. ABSENT: jaundice, rash, urticaria Left lower extremity: Suprapatellar effusion, pain to range of motion, otherwise grossly neurovascular intact. Results Laboratory Results: 10/26/19 14:05 10/26/19 14:05 10/26/19 10/26/19 10/26/19 14:05 14:05 14:05 WBC 6.9 RBC 4.47 Hgb 11.1 L Hct 33.4 L MCV 75 L MCH 24.9 L MCHC 33.2 RDW 18.4 H Plt Count 163 Seg Neutrophils % 78.2 H Sodium 136.0 L Potassium 2.9 L* Chloride 91 L Carbon Dioxide 35 H Anion Gap 10 BUN 28 H Creatinine 1.50 H Est GFR ( Amer) 58 L Glucose 184 H Uric Acid 11.0 H Calcium 9.1 Total Bilirubin 0.8 AST 24 Alkaline Phosphatase 101 C-Reactive Protein 289.5 H Total Protein 7.4 Albumin 3.6 Urine Color Urine Appearance Urine pH Ur Specific Gaines Urine Protein Urine Glucose (UA) Urine Ketones Urine Blood Urine Nitrite Ur Leukocyte Esterase Urine WBC (Auto) Urine RBC (Auto) 10/26/19 14:30 WBC RBC Hgb Hct MCV MCH MCHC RDW Plt Count Seg Neutrophils % Sodium Potassium Chloride Carbon Dioxide Anion Gap BUN Creatinine Est GFR ( Amer) Glucose Uric Acid Calcium Total Bilirubin AST Alkaline Phosphatase C-Reactive Protein Total Protein Albumin Urine Color YELLOW Urine Appearance SLIGHTLY-CLOUDY Urine pH 6.0 Ur Specific Gaines 1.012 Urine Protein 30 H Urine Glucose (UA) 50 H Urine Ketones NEGATIVE Urine Blood LARGE H Urine Nitrite NEGATIVE Ur Leukocyte Esterase NEGATIVE Urine WBC (Auto) 4 Urine RBC (Auto) 29 Assessment & Plan - Diagnosis (1) Effusion, left knee Plan: His effusion is likely due to a gout attack. Will draw fluid and evaluate. If fluid is relatively normal on visual inspection we will proceed with steroid injection to the left knee. -Medical management for gout per medicine -We will order cultures either way -From an orthopedic standpoint the patient may be able to go home today, if anything positive shows up on cultures he would need to return.
[2019-10-27] MEDS: POTASSIUM CHLORIDE 10 MEQ TABLET.ER PO SCH ×3 (08:57→17:13)
[2019-10-27] MEDS: INSULIN LISPRO 100 UNIT/ML 3 ML VIAL SUBCUT SCH ×4 (08:57→22:12)
[2019-10-27] MEDS: COLCHICINE 0.6 MG TABLET PO SCH ×2 (09:37→22:11)
[2019-10-27] MEDS: DOCUSATE SODIUM 100 MG CAPSULE PO SCH ×2 (09:37→17:13)
[2019-10-27] MEDS ORDERED: TRIAMCINOLONE ACETONIDE INJ 40 MG/1 ML VIAL INJ PRN (09:40)
[2019-10-27] MEDS ORDERED: LIDOCAINE 2% INJ (20 MG/ML) 20 ML MDV INJ PRN (09:41)
[2019-10-27] MEDS ORDERED: BUPIVACAINE HCL 0.25 % INJ/PF (2.5 MG/1 ML) 30 ML VIAL INJ PRN (09:42)
--- NOTE | 2019-10-27 11:46 | Progress Note ---
Provider Note Provider Note: -Procedure note: After discussing risks and benefits with the patient's multiple treatment options including injectable intervention the patient has consented verbally to a left knee aspiration and injection. The left knee was prepped in standard sterile fashion with alcohol prep pads. A 5 cc 2% lidocaine was provided to the suprapatellar lateral site for subsequent aspiration. Following adequate analgesia a 18-gauge needle was introduced and approximately 80 cc of slightly cloudy serous fluid was withdrawn. The appearance did not give the impression of overt infection. We decided it was safe to proceed with Kenalog injection at this time and 40 mg of Kenalog with 2 cc of 2% lidocaine and 2 cc of quarter percent Marcaine were then injected into the left knee. The patient tolerated procedure well and a sterile dressing was then placed. We will send fluid for analysis.
--- NOTE | 2019-10-27 12:17 | RADIOLOGY REPORT (SQ) ---
EXAM DESCRIPTION: KNEE LEFT 3 VIEWS COMPLETED DATE/TIME: 10/27/2019 10:50 am REASON FOR STUDY: Left knee pain COMPARISON: None. NUMBER OF VIEWS: Four views. TECHNIQUE: AP, lateral, and both oblique radiographic images acquired of the left knee. LIMITATIONS: None. FINDINGS: MINERALIZATION: Osteopenia. BONES: No acute fracture or dislocation. No worrisome bone lesions. Large marginal osteophytes at t he medial, lateral, and patellofemoral joint spaces. No intra-articular loose body. JOINT: Moderate joint effusion. SOFT TISSUES: No soft tissue swelling. No radio-opaque foreign body. OTHER: No other significant finding. IMPRESSION: No acute fracture or dislocation of the left knee. Moderate knee joint effusion. Sever e tricompartmental osteoarthritis. TECHNICAL DOCUMENTATION: JOB ID: [id number] 2010 [employer]- All Rights Reserved Reading location - IP/workstation name: [email or web address]
[2019-10-27 12:25] LABS: CALCIUM PYROPHOSPHATE CRYSTALS NONE OBSERVED; MONOSODIUM URATE CRYSTALS INTRACELLULAR; OTHER CRYSTALS NONE OBSERVED
[2019-10-27 13:11] LABS: FLUID SOURCE KNEE; FLUID TYPE SYNOVIAL
[2019-10-27 13:12] LABS: FLUID APPEARANCE HAZY; FLUID COLOR AMBER; FLUID VISCOSITY MODERATELY VISCOUS
[2019-10-27] MEDS ORDERED: FUROSEMIDE INJ/PF 20 MG/2 ML SDV IV SCH (13:30)
[2019-10-27] MEDS ORDERED: PHARMACY COMMUNICATION ORDER MC NR (14:00)
[2019-10-27] MEDS ORDERED: TRAMADOL HCL 50 MG TABLET PO PRN (14:06)
--- NOTE | 2019-10-27 14:10 | PDOC PROGRESS REPORT ---
Subjective Progress Note for:: 10/27/19 Subjective:: The patient has history of gout. Dr. Perera aspirated the joint. Monosodium urate crystals were identified. The patient also is diabetic and status post renal transplant with morbid obesity. His knee feels slightly better with the fluid removed but it is still painful. Reason For Visit: ACUTE GOUT LEFT KNEE Physical Exam Vital Signs: Temp Pulse Resp BP Pulse Ox 97.6 F 86 14 177/72 H 97 10/27/19 11:49 10/27/19 11:49 10/27/19 11:49 10/27/19 11:49 10/27/19 11:49 Intake & Output 10/26/19 10/27/19 10/28/19 06:59 06:59 06:59 Intake Total 50 Balance 50 Weight 163.2 kg General appearance: PRESENT: cooperative, mild distress, morbidly obese, well- developed Head exam: PRESENT: atraumatic, normocephalic Ear exam: PRESENT: normal external ear exam. ABSENT: bleeding, drainage Respiratory exam: PRESENT: clear to auscultation vick, symmetrical, unlabored. ABSENT: prolonged expiratory phas, rales, rhonchi, tachypnea, wheezes Cardiovascular exam: PRESENT: RRR, +S1, +S2, systolic murmur - 3/6 GI/Abdominal exam: PRESENT: normal bowel sounds, soft, other - Protuberant abdomen. ABSENT: tenderness Rectal exam: PRESENT: deferred Extremities exam: PRESENT: joint swelling - Bilateral knee swelling. Left greater than right. Skin on the left knee is warm to touch., +1 edema Neurological exam: PRESENT: alert, awake, oriented to person, oriented to place, oriented to time, oriented to situation, CN II-XII grossly intact. ABSENT: motor sensory deficit Psychiatric exam: PRESENT: flat affect. ABSENT: agitated, anxious Results Laboratory Results: 10/26/19 14:05 10/26/19 14:05 10/26/19 10/26/19 10/26/19 14:05 14:05 14:05 WBC 6.9 RBC 4.47 Hgb 11.1 L Hct 33.4 L MCV 75 L MCH 24.9 L MCHC 33.2 RDW 18.4 H Plt Count 163 Seg Neutrophils % 78.2 H Sodium 136.0 L Potassium 2.9 L* Chloride 91 L Carbon Dioxide 35 H Anion Gap 10 BUN 28 H Creatinine 1.50 H Est GFR ( Amer) 58 L Glucose 184 H Uric Acid 11.0 H Calcium 9.1 Total Bilirubin 0.8 AST 24 Alkaline Phosphatase 101 C-Reactive Protein 289.5 H Total Protein 7.4 Albumin 3.6 Urine Color Urine Appearance Urine pH Ur Specific [place] Urine Protein Urine Glucose (UA) Urine Ketones Urine Blood Urine Nitrite Ur Leukocyte Esterase Urine WBC (Auto) Urine RBC (Auto) Fluid Type Fluid Source Fluid Color Fluid Appearance Fluid Viscosity Fluid WBC Fluid RBC 10/26/19 10/27/19 10/27/19 14:30 11:20 11:20 WBC RBC Hgb Hct MCV MCH MCHC RDW Plt Count Seg Neutrophils % Sodium Potassium Chloride Carbon Dioxide Anion Gap BUN Creatinine Est GFR ( Amer) Glucose Uric Acid Calcium Total Bilirubin AST Alkaline Phosphatase C-Reactive Protein Total Protein Albumin Urine Color YELLOW Urine Appearance SLIGHTLY-CLOUDY Urine pH 6.0 Ur Specific [place] 1.012 Urine Protein 30 H Urine Glucose (UA) 50 H Urine Ketones NEGATIVE Urine Blood LARGE H Urine Nitrite NEGATIVE Ur Leukocyte Esterase NEGATIVE Urine WBC (Auto) 4 Urine RBC (Auto) 29 Fluid Type SYNOVIAL SYNOVIAL Fluid Source KNEE Fluid Color GEORGETTE Fluid Appearance HAZY Fluid Viscosity MODERATELY VISCOUS Fluid WBC 8367 Fluid RBC 7966 Impressions: Knee X-Ray 10/26/19 00:00 IMPRESSION: No acute fracture or dislocation of the left knee. Moderate knee joint effusion. Severe tricompartmental osteoarthritis. Assessment and Plan - Diagnosis (1) Acute gout due to renal impairment involving knee Qualifiers: Laterality: left Qualified Code(s): M10.362 - Gout due to renal impairment, left knee Is this a current diagnosis for this admission?: Yes (2) Hypokalemia Is this a current diagnosis for this admission?: Yes (3) Chronic congestive heart failure Qualifiers: Heart failure type: unspecified Qualified Code(s): I50.9 - Heart failure, unspecified Is this a current diagnosis for this admission?: Yes (4) Chronic kidney disease (CKD) Qualifiers: Chronic kidney disease stage: unspecified stage Qualified Code(s): N18.9 - Chronic kidney disease, unspecified Is this a current diagnosis for this admission?: Yes (5) Hyperlipidemia Qualifiers: Hyperlipidemia type: unspecified Qualified Code(s): E78.5 - Hyperlipidemia, unspecified Is this a current diagnosis for this admission?: Yes (6) Hypertension Qualifiers: Hypertension type: essential hypertension Qualified Code(s): I10 - Essential (primary) hypertension Is this a current diagnosis for this admission?: Yes (7) Left knee pain Qualifiers: Chronicity: acute Qualified Code(s): M25.562 - Pain in left knee Is this a current diagnosis for this admission?: Yes (8) Morbid obesity Is this a current diagnosis for this admission?: Yes (9) Renal transplant recipient Is this a current diagnosis for this admission?: Yes (10) Hyperuricemia Is this a current diagnosis for this admission?: Yes (11) Anemia of renal disease Is this a current diagnosis for this admission?: Yes (12) Chronic renal failure, stage 3 (moderate) Is this a current diagnosis for this admission?: Yes - Plan Summary Summary: Patient is admitted to the medical floor where he will receive routine supportive and symptomatic cares. He will be started on oral colchicine therapy. A nephrology consult will be obtained when nephrology services are again available for consideration of ongoing colchicine and or allopurinol therapy. An orthopedic consultation will be obtained with Dr. Haider Perera. Patient received Dilaudid 0.5 to 2 mg IV every 3 hours as needed for pain. He will be treated with a diabetic restricted, cardiac restricted and prerenal restricted diet. He will be continued on his usual home medications as appropriate with therapeutic/formulary substitution as required. He will receive oral potassium repletion therapy. His CBC, magnesium level and metabolic profile will be monitored as needed. 10/27/2019 The patient had elevated white blood cells in the synovial fluid as well as monosodium urate crystals. His serum uric acid is 11. He was started on colchicine. In addition after the arthrocentesis drained fluid from his knee Dr. Perera instilled steroids. The patient did receive systemic steroids the concern is elevated glucose from his diabetes. Analgesia will be available for his pain. He is a renal transplant patient. We will continue his mycophenolate and Envarsus as well as prednisone 5 mg daily. He does have mild chronic renal insufficiency. He follows up with his transplant team every 6 to 8 weeks. He will have Accu-Cheks and sliding scale coverage for his diabetes mellitus type 2. [address] Sam for cardiology. He has been on furosemide 80 mg in the morning with 40 mg in the evening if needed. Dr. Sam recently started several other medications that the patient and his cannot remember. The patient's is going to check. He will be monitored on telemetry, intake and output will be measured as well his vital signs be observed. Hyperlipidemia-continue statin therapy Morbid obesity-the patient would do well to lose weight as this certainly would help his arthritis and decrease cardiac risk. The patient has a history of congestive heart failure. There is no echocardio gram currently on record. He does see Dr. Sam and there is likely results from cardiovascular studies at his office. I will consult Dr. Sam tomorrow. - Time Time Spent with patient: 15-24 minutes Medications reviewed and adjusted accordingly: Yes Anticipated discharge: Home - Inpatient Certification Based on my medical assessment, after consideration of the patient's comorbid ities, presenting symptoms, or acuity I expect that the services needed warrant INPATIENT care.: Yes I certify that my determination is in accordance with my understanding of Medicare's requirements for reasonable and necessary INPATIENT services [42 CFR 412.3e].: Yes Medical Necessity: Need For Continuous Telemetry Monitoring, Need for Pain Control, Risk of Complication if Not Cared For in Hospital Post Hospital Care: D/C Executive Search Consultant Documentation
[2019-10-27] MEDS ORDERED: TACROLIMUS PO SCH (15:15)
--- NOTE | 2019-10-27 16:21 | XCELERA REPORT ---
[address] [address] Lower Extremity Venous Evaluation Procedure: Color flow and duplex imaging of the veins of the left lower extremity as well as the right Common Femoral vein. Right Sided Venous Evaluation The right common femoral vein is fully compressible. Spontaneous and phasic flow is present in the right common femoral vein. Left Sided Venous Evaluation Echogenic, enlarged veins, with no Colour flow in the Short Saphenous . Otherwise normal vessel filling wall to wall, compression and augmentation as well as Colour flow down to the infrageniculate veins. Interpretation Summary No duplex evidence of DVT or obstruction in the left lower extremity nor in the right Common Femoral vein. Subacute phlebitis noted in the left Short Saphenous vein. Name: SHI SIDDIQI Age: 59 yrs Gender: Male : 1960 Patient Status: Emergency Patient Location: ER Study Date: 10/26/2019 03:02 PM Reason For Study: Left leg pain Ordering Physician: ZACHERY HILL Performed By: Mehreen Holman : ZACHERY HILL > Raymon Bragg
[2019-10-27] MEDS: LEVALBUTEROL HCL NEB 1.25 MG/3 ML AMPUL NEB PRN (16:34)
[2019-10-27 17:05] LABS: ALBUMIN 3.2 g/dL (3.5-5.0); ANION GAP 12 (5-19); BLOOD UREA NITROGEN 28 mg/dL (7-20); CALCIUM 8.6 mg/dL (8.4-10.2); CARBON DIOXIDE 27 mmol/L (22-30); CHLORIDE 93 mmol/L (98-107); GLUCOSE 391 mg/dL (75-110); PHOSPHORUS 1.8 mg/dL (2.5-4.5); POTASSIUM 3.9 mmol/L (3.6-5.0)
[2019-10-27] MEDS: CYCLOBENZAPRINE HCL 10 MG TABLET PO PRN (17:12)
[2019-10-27] MEDS ORDERED: TAMSULOSIN HCL 0.4 MG CAP.SR.24H PO SCH (18:00)
[2019-10-27] MEDS ORDERED: (PENDING PHARMACY ID) (Mycophenolate Sodium 360 MG) PO SCH (18:00)
[2019-10-27] MEDS: MORPHINE SULFATE IR 15 MG TABLET PO PRN (22:11)
[2019-10-27] MEDS: ATORVASTATIN CALCIUM 10 MG TABLET PO SCH (22:11)
[2019-10-27] MEDS: FAMOTIDINE 20 MG TABLET PO SCH (22:12)
[2019-10-27] MEDS: MYFORTIC 180 MG PO SCH (22:14)
--- NOTE | 2019-10-28 03:27 | Progress Note ---
Provider Note Provider Note: Critical care note: 10/27/2019 Critical care start time: 20:40 Critical care issue: Uncontrolled pain Patient was seen at the request of nursing staff due to his uncontrolled pain. On evaluation patient complains mostly of pain in his lower back and both hips which is of a more chronic nature than his acute left knee pain due to gout which was his presenting symptom. He felt that the Dilaudid IV controlled his pain very well and he did not feel that his pain is under good control with oral tramadol and acetaminophen. He requested resumption of Dilaudid or at least a different pain medication that may control his pain better. Patient's examination is noted to be essentially unchanged from his previous evaluation however his left knee shows considerably less effusion and markedly reduced pain to palpation and movement. A discussion concerning the use of narcotic pain medications of high addictive potential was undertaken with the patient and the topic was discussed at length. We agreed to initiate a treatment program that could be sustained on an outpatient basis by a pain management clinic if necessary. Our plan calls for treatment with IR morphine sulfate 15 mg orally every 4 hours as needed for pain initially with dosage adjustment to obtain a adequate pain control level. Once his dosage for adequate pain control is determined he can be converted to MS Contin at an appropriate dosage with a lower dose IR morphine sulfate for breakthrough pain. He is in agreement to try this plan. In follow-up patient was noted to be resting comfortably in bed. Critical care end time: 03:27 Total critical care time: 31 minutes
[2019-10-28] MEDS ORDERED: ENVARSUS 4 MG PO SCH (06:00)
[2019-10-28 06:06] LABS: HEMATOCRIT 34.6 % (37.9-51.0); HEMOGLOBIN 11.4 g/dL (13.5-17.0); MEAN CORPUSCULAR HEMOGLOBIN 24.7 pg (27.0-33.4); MEAN CORPUSCULAR HGB CONC 33.1 g/dL (32.0-36.0); MEAN CORPUSCULAR VOLUME 75 fl (80-97); PLATELET COUNT 147 10^3/uL (150-450); RED BLOOD COUNT 4.62 10^6/uL (4.35-5.55); RED CELL DISTRIBUTION WIDTH 17.9 % (11.5-14.0); WHITE BLOOD COUNT 9.2 10^3/uL (4.0-10.5)
[2019-10-28 06:18] LABS: ANION GAP 12 (5-19); BLOOD UREA NITROGEN 32 mg/dL (7-20); CALCIUM 8.5 mg/dL (8.4-10.2); CARBON DIOXIDE 25 mmol/L (22-30); CHLORIDE 96 mmol/L (98-107); CHOLESTEROL 158.48 mg/dL (0-200); GLUCOSE 312 mg/dL (75-110); POTASSIUM 3.6 mmol/L (3.6-5.0); TRIGLYCERIDES 115 mg/dL (<150)
[2019-10-28 06:30] LABS: DIRECT LDL 100 mg/dL (<100)
[2019-10-28 06:40] LABS: ABSOLUTE LYMPHOCYTES# (MANUAL) 0.2 10^3/uL (0.5-4.7); ABSOLUTE MONOCYTES # (MANUAL) 0.5 10^3/uL (0.1-1.4); ANISOCYTOSIS 2+; BAND NEUTROPHILS % (MANUAL) 6 % (3-5); BASOPHILS % (MANUAL) 0 % (0-2); EOSINOPHILS % (MANUAL) 0 % (0-6); LYMPHOCYTES % (MANUAL) 2 % (13-45); MONOCYTES % (MANUAL) 5 % (3-13); SEGMENTED NEUTROPHILS % (MAN) 87 % (42-78); TOTAL CELLS COUNTED 100
[2019-10-28 06:41] LABS: PLATELET COMMENT DECREASED
[2019-10-28] MEDS: LEVALBUTEROL HCL NEB 1.25 MG/3 ML AMPUL NEB PRN ×2 (08:02→15:29)
[2019-10-28] MEDS: ENVARSUS 4 MG PO SCH (08:32)
[2019-10-28] MEDS: HEPARIN SOD (PORCINE) 5,000 UNIT/ML 1 ML VIAL SUBCUT SCH ×3 (08:33→21:33)
[2019-10-28] MEDS: POTASSIUM CHLORIDE 10 MEQ TABLET.ER PO SCH ×3 (08:34→18:03)
[2019-10-28] MEDS: INSULIN LISPRO 100 UNIT/ML 3 ML VIAL SUBCUT SCH ×4 (08:35→21:33)
[2019-10-28] MEDS ORDERED: TAMSULOSIN HCL 0.4 MG CAP.SR.24H PO SCH (10:00)
[2019-10-28] MEDS: FAMOTIDINE 20 MG TABLET PO SCH ×2 (11:04→21:35)
[2019-10-28] MEDS: COLCHICINE 0.6 MG TABLET PO SCH ×2 (11:04→21:34)
[2019-10-28] MEDS: DOCUSATE SODIUM 100 MG CAPSULE PO SCH ×2 (11:04→18:03)
[2019-10-28] MEDS: ASPIRIN 81 MG TABLET, ENT COATED PO SCH (11:04)
[2019-10-28] MEDS: EZETIMIBE 10 MG TABLET PO SCH (11:04)
[2019-10-28] MEDS: PREDNISONE 5 MG TABLET PO SCH (11:05)
[2019-10-28] MEDS: FUROSEMIDE 80 MG TABLET PO SCH (11:05)
[2019-10-28] MEDS: MYFORTIC 180 MG PO SCH ×2 (11:06→18:05)
--- NOTE | 2019-10-28 15:27 | PDOC PROGRESS REPORT ---
Subjective Progress Note for:: 10/28/19 Subjective:: The patient is doing well this morning. Overall he reports improved pain in the left knee. The nurses do report that he has had some delirium this morning. And has had some difficulty walking with the nursing staff and reportedly fell last night. They are hesitant to get him to walk again until he has worked with physical therapy. No new signs or symptoms Reason For Visit: ACUTE GOUT LEFT KNEE Physical Exam Vital Signs: Temp Pulse Resp BP Pulse Ox 97.4 F 91 16 149/81 H 99 10/28/19 11:36 10/28/19 11:36 10/28/19 11:36 10/28/19 11:36 10/28/19 11:36 Intake & Output 10/27/19 10/28/19 10/29/19 06:59 06:59 06:59 Intake Total 50 1280 840 Output Total 3025 800 Balance 50 -1745 40 Weight 163.2 kg 165.3 kg Physical Exam: Left lower extremity -Pulses 2+ distally -Compartments soft -Sensation grossly intact to L3-4-5 S1 -Motor grossly intact to EHL TA gastroc and quad -Left knee effusion is no longer present, there is no warmth erythema -Better able to range his knee without pain today. No acute distress alert and orient x3 on my questioning however he reportedly had some delirium this morning with nursing staff. Results Laboratory Results: 10/28/19 05:02 10/28/19 05:02 10/27/19 10/28/19 10/28/19 16:10 05:02 05:02 WBC 9.2 RBC 4.62 Hgb 11.4 L Hct 34.6 L MCV 75 L MCH 24.7 L MCHC 33.1 RDW 17.9 H Plt Count 147 L Seg Neutrophils % Not Reportable Sodium 132.2 L 133.0 L Potassium 3.9 3.6 Chloride 93 L 96 L Carbon Dioxide 27 25 Anion Gap 12 12 BUN 28 H 32 H Creatinine 1.25 1.25 Est GFR ( Amer) > 60 > 60 Glucose 391 H 312 H Calcium 8.6 8.5 Phosphorus 1.8 L 1.0 L Magnesium 2.0 Albumin 3.2 L 3.0 L Triglycerides 115 Cholesterol 158.48 LDL Cholesterol Direct 100 VLDL Cholesterol 23.0 HDL Cholesterol 41 TSH 10/28/19 05:02 WBC RBC Hgb Hct MCV MCH MCHC RDW Plt Count Seg Neutrophils % Sodium Potassium Chloride Carbon Dioxide Anion Gap BUN Creatinine Est GFR ( Amer) Glucose Calcium Phosphorus Magnesium Albumin Triglycerides Cholesterol LDL Cholesterol Direct VLDL Cholesterol HDL Cholesterol TSH 1.90 Impressions: Knee X-Ray 10/26/19 00:00 IMPRESSION: No acute fracture or dislocation of the left knee. Moderate knee joint effusion. Severe tricompartmental osteoarthritis. Assessment & Plan - Diagnosis (1) Effusion, left knee Is this a current diagnosis for this admission?: Yes Plan: We will continue to follow for cultures. However other labs have demonstrated intra-articular monosodium urate crystals consistent with gout. I have a low suspicion infection of this time given the white blood cell count was low and he seems to be doing very well with his steroid injection. -Please let me know if there is any other needs, orthopedics signing off. Will chart check for cultures -Weightbearing as tolerated with physical therapy (2) Gout attack Qualifiers: Gout site: knee Gout etiology: idiopathic Laterality: left Qualified Code(s): M10.062 - Idiopathic gout, left knee Is this a current diagnosis for this admission?: Yes Plan: Consider long-term colchicine or allopurinol per primary provider. - Time Time Spent with patient: Less than 15 minutes
--- NOTE | 2019-10-28 17:30 | PDOC PROGRESS REPORT ---
Subjective Progress Note for:: 10/28/19 Subjective:: The patient complains that he is still in pain. He did very little with physical therapy today. He walked 10 feet yesterday. He still complains of knee pain. Reason For Visit: ACUTE GOUT LEFT KNEE Physical Exam Vital Signs: Temp Pulse Resp BP Pulse Ox 97.9 F 95 16 156/74 H 96 10/28/19 15:23 10/28/19 15:29 10/28/19 15:29 10/28/19 15:23 10/28/19 15:29 Intake & Output 10/27/19 10/28/19 10/29/19 06:59 06:59 06:59 Intake Total 50 1280 840 Output Total 3025 800 Balance 50 -1745 40 Weight 163.2 kg 165.3 kg Results Laboratory Results: 10/28/19 05:02 10/28/19 05:02 10/28/19 10/28/19 10/28/19 05:02 05:02 05:02 WBC 9.2 RBC 4.62 Hgb 11.4 L Hct 34.6 L MCV 75 L MCH 24.7 L MCHC 33.1 RDW 17.9 H Plt Count 147 L Seg Neutrophils % Not Reportable Sodium 133.0 L Potassium 3.6 Chloride 96 L Carbon Dioxide 25 Anion Gap 12 BUN 32 H Creatinine 1.25 Est GFR ( Amer) > 60 Glucose 312 H Calcium 8.5 Phosphorus 1.0 L Magnesium 2.0 Albumin 3.0 L Triglycerides 115 Cholesterol 158.48 LDL Cholesterol Direct 100 VLDL Cholesterol 23.0 HDL Cholesterol 41 TSH 1.90 Impressions: Knee X-Ray 10/26/19 00:00 IMPRESSION: No acute fracture or dislocation of the left knee. Moderate knee joint effusion. Severe tricompartmental osteoarthritis. Assessment and Plan - Diagnosis (1) Acute gout due to renal impairment involving knee Qualifiers: Laterality: left Qualified Code(s): M10.362 - Gout due to renal impairment, left knee Is this a current diagnosis for this admission?: Yes (2) Hypokalemia Is this a current diagnosis for this admission?: Yes (3) Chronic congestive heart failure Qualifiers: Heart failure type: unspecified Qualified Code(s): I50.9 - Heart failure, unspecified Is this a current diagnosis for this admission?: Yes (4) Chronic kidney disease (CKD) Qualifiers: Chronic kidney disease stage: unspecified stage Qualified Code(s): N18.9 - Chronic kidney disease, unspecified Is this a current diagnosis for this admission?: Yes (5) Hyperlipidemia Qualifiers: Hyperlipidemia type: unspecified Qualified Code(s): E78.5 - Hyperlipidemia, unspecified Is this a current diagnosis for this admission?: Yes (6) Hypertension Qualifiers: Hypertension type: essential hypertension Qualified Code(s): I10 - Essential (primary) hypertension Is this a current diagnosis for this admission?: Yes (7) Left knee pain Qualifiers: Chronicity: acute Qualified Code(s): M25.562 - Pain in left knee Is this a current diagnosis for this admission?: Yes (8) Morbid obesity Is this a current diagnosis for this admission?: Yes (9) Renal transplant recipient Is this a current diagnosis for this admission?: Yes (10) Hyperuricemia Is this a current diagnosis for this admission?: Yes (11) Anemia of renal disease Is this a current diagnosis for this admission?: Yes (12) Chronic renal failure, stage 3 (moderate) Is this a current diagnosis for this admission?: Yes - Plan Summary Summary: Patient is admitted to the medical floor where he will receive routine suppo rtive and symptomatic cares. He will be started on oral colchicine therapy. A nephrology consult will be obtained when nephrology services are again available for consideration of ongoing colchicine and or allopurinol therapy. An orthopedic consultation will be obtained with Dr. Haider Perera. Patient received Dilaudid 0.5 to 2 mg IV every 3 hours as needed for pain. He will be treated with a diabetic restricted, cardiac restricted and prerenal restricted diet. He will be continued on his usual home medications as appropriate with therapeutic/formulary substitution as required. He will receive oral potassium repletion therapy. His CBC, magnesium level and metabolic profile will be kiley tored as needed. 10/27/2019 The patient had elevated white blood cells in the synovial fluid as well as monosodium urate crystals. His serum uric acid is 11. He was started on colchicine. In addition after the arthrocentesis drained fluid from his knee Dr. Perera instilled steroids. The patient did receive systemic steroids the concern is elevated glucose from his diabetes. Analgesia will be available for his pain. He is a renal transplant patient. We will continue his mycophenolate and En varsus as well as prednisone 5 mg daily. He does have mild chronic renal insufficiency. He follows up with his transplant team every 6 to 8 weeks. He will have Accu-Cheks and sliding scale coverage for his diabetes mellitus type 2. [address] Sam for cardiology. He has been on furosemide 80 mg in the morning with 40 mg in the evening if needed. Dr. Sam recently started several other medications that the patient and his cannot remember. The patient's is going to check. He will be monitored on telemetry, intake and output will be measured as well his vital signs be observed. Hyperlipidemia-continue statin therapy Morbid obesity-the patient would do well to lose weight as this certainly would help his arthritis and decrease cardiac risk. The patient has a history of congestive heart failure. There is no echocardiogram currently on record. He does see Dr. Sam and there is likely results from cardiovascular studies at his office. I will consult Dr. Sam tomorrow. 10/28/2019 The patient complains of knee pain. He most likely has gout due to the monosodium urate crystals found in the aspirate. He states it is still causes significant pain. He actually did less with physical therapy today than on the previous visit. He states that the knee still feels "tight ". In addition to the current regimen we will add icepack therapy. The patient needs to mobilize more. He should be able to go home with home health. His Accu-Cheks are still very elevated. I will increase the Lantus and we will continue the sliding scale. He is on prednisone daily but he also received a steroid injection in his knee. This could be causing some of the increased Accu-Cheks. The patient has exhibited no evidence of acute coronary syndrome. We will continue his cardiac medication regimen. His congestive heart failure appears to be under control. Blood pressures are acceptable. We will continue the renal transplant medications. He appears to be tolerating them without difficulty. - Time Time Spent with patient: 15-24 minutes Medications reviewed and adjusted accordingly: Yes Anticipated discharge: Home with Homehealth
[2019-10-28] MEDS: TAMSULOSIN HCL 0.4 MG CAP.SR.24H PO SCH (18:04)
[2019-10-28] MEDS: PHOSPHORUS #1 250 MG TABLET PO SCH (21:32)
[2019-10-28] MEDS: MORPHINE SULFATE IR 15 MG TABLET PO PRN (21:32)
[2019-10-28] MEDS: INSULIN GLARGINE,HUM.REC.ANLOG 1,000 UNIT/10 ML VIAL SUBCUT SCH (21:32)
[2019-10-28] MEDS: ATORVASTATIN CALCIUM 10 MG TABLET PO SCH (21:35)
[2019-10-29] MEDS ORDERED: CEFEPIME 2 GM/D5W RTU 2 GM/50 ML RTUPB IV ONE ×2 (04:00→04:12)
[2019-10-29] MEDS: ENVARSUS 4 MG PO SCH (05:15)
[2019-10-29] MEDS: MYFORTIC 180 MG PO SCH ×2 (05:17→17:54)
[2019-10-29] MEDS: HEPARIN SOD (PORCINE) 5,000 UNIT/ML 1 ML VIAL SUBCUT SCH ×3 (05:19→22:12)
[2019-10-29 06:47] LABS: ABSOLUTE LYMPHOCYTES (AUTO) 0.4 10^3/uL (0.5-4.7); ABSOLUTE MONOCYTES (AUTO) 0.5 10^3/uL (0.1-1.4); ABSOLUTE NEUT (AUTO) 6.3 10^3/uL (1.7-8.2); BASOPHILS % (AUTO) 0.1 % (0-2); HEMATOCRIT 34.1 % (37.9-51.0); HEMOGLOBIN 11.1 g/dL (13.5-17.0); LYMPHOCYTES % (AUTO) 5.1 % (13-45); MEAN CORPUSCULAR HEMOGLOBIN 24.1 pg (27.0-33.4); MEAN CORPUSCULAR HGB CONC 32.5 g/dL (32.0-36.0); MEAN CORPUSCULAR VOLUME 74 fl (80-97); MONOCYTES % (AUTO) 7.5 % (3-13); PLATELET COUNT 132 10^3/uL (150-450); RED BLOOD COUNT 4.58 10^6/uL (4.35-5.55); RED CELL DISTRIBUTION WIDTH 18.4 % (11.5-14.0); SEGMENTED NEUTROPHILS % (AUTO) 87.3 % (42-78); TOTAL CELLS COUNTED % (AUTO) 100 %; WHITE BLOOD COUNT 7.3 10^3/uL (4.0-10.5)
[2019-10-29 07:08] LABS: ANION GAP 11 (5-19); BLOOD UREA NITROGEN 40 mg/dL (7-20); CALCIUM 8.2 mg/dL (8.4-10.2); CARBON DIOXIDE 26 mmol/L (22-30); CHLORIDE 93 mmol/L (98-107); GLUCOSE 307 mg/dL (75-110); POTASSIUM 3.9 mmol/L (3.6-5.0)
[2019-10-29] MEDS: INSULIN LISPRO 100 UNIT/ML 3 ML VIAL SUBCUT SCH ×4 (08:11→22:12)
[2019-10-29] MEDS: FAMOTIDINE 20 MG TABLET PO SCH ×2 (09:06→22:13)
[2019-10-29] MEDS: POTASSIUM CHLORIDE 10 MEQ TABLET.ER PO SCH ×3 (09:06→17:53)
[2019-10-29] MEDS: FUROSEMIDE 80 MG TABLET PO SCH (09:06)
[2019-10-29] MEDS: COLCHICINE 0.6 MG TABLET PO SCH ×2 (09:06→22:13)
[2019-10-29] MEDS: DOCUSATE SODIUM 100 MG CAPSULE PO SCH ×2 (09:06→17:52)
[2019-10-29] MEDS: ASPIRIN 81 MG TABLET, ENT COATED PO SCH (09:06)
[2019-10-29] MEDS: EZETIMIBE 10 MG TABLET PO SCH (09:06)
[2019-10-29] MEDS: PREDNISONE 5 MG TABLET PO SCH (09:11)
[2019-10-29] MEDS: PHOSPHORUS #1 250 MG TABLET PO SCH ×4 (09:11→22:13)
[2019-10-29] MEDS: LEVALBUTEROL HCL NEB 1.25 MG/3 ML AMPUL NEB PRN (11:46)
[2019-10-29] MEDS ORDERED: SIMETHICONE 80 MG TAB.CHEW PO ONE (17:00)
[2019-10-29] MEDS: CEFEPIME HCL 2 GM in DEXTROSE 5%-WATER 50 ML IV SCH (17:52)
[2019-10-29] MEDS: TAMSULOSIN HCL 0.4 MG CAP.SR.24H PO SCH (17:53)
[2019-10-29] MEDS: FUROSEMIDE 40 MG TABLET PO SCH (17:53)
[2019-10-29] MEDS ORDERED: CEFEPIME 2 GM/D5W RTU 2 GM/50 ML RTUPB IV SCH (18:00)
[2019-10-29] MEDS: OXYCODONE-ACETAMINOPHEN 5-325 MG TABLET PO PRN (18:17)
--- NOTE | 2019-10-29 18:19 | PDOC PROGRESS REPORT ---
Subjective Progress Note for:: 10/29/19 Subjective:: The patient is a 59-year-old male with a past medical history of CHF, DVT, hyperlipidemia, hypertension, PVD, tuberculosis, DM 2, diabetic polyneuropathy, obesity, CKD status post renal transplant, GERD, arthritis, and depression who was admitted 10/26/2019 with inability to bear weight secondary to left knee pain related to gout. Patient was seen on afternoon rounds with present. He is A&Ox4 at present; currently wearing home CPAP device. Per , patient did have some confusion this morning. Patient reports continued left knee pain, bilateral hip pain, and lower back pain. He does admit to chronic lower back pain but reports that his pain is significantly worsened since his fall earlier this week. Per patient's , patient was seen in the emergency department a few days prior to his admission when he was diagnosed with influenza and placed on Tamiflu [Influenza and CXR benign at that visit; interestingly, the patient's blood cultures were positive for group B strep (2 of 2 sets)]. Patient reports generalized malaise, and fatigue. He also reports generalized body aches. He denies fever, chills, chest pain, palpitations, dyspnea, abd pain, nausea, vomiting, diarrhea. All questions answered. Discussed plan of care with nursing. Reason For Visit: ACUTE GOUT LEFT KNEE Physical Exam Vital Signs: Temp Pulse Resp BP Pulse Ox 97.6 F 85 14 155/76 H 97 10/29/19 11:27 10/29/19 11:48 10/29/19 11:48 10/29/19 11:27 10/29/19 11:48 Intake & Output 10/28/19 10/29/19 10/30/19 06:59 06:59 06:59 Intake Total 1280 3090 950 Output Total 3025 1825 750 Balance -1745 1265 200 Weight 165.3 kg 163.8 kg General appearance: PRESENT: no acute distress, cooperative, disheveled - body odor, morbidly obese, well-developed, well-nourished Head exam: PRESENT: atraumatic, normocephalic Eye exam: PRESENT: conjunctiva pink, EOMI, PERRLA. ABSENT: scleral icterus Mouth exam: PRESENT: moist, tongue midline Respiratory exam: PRESENT: clear to auscultation vick, symmetrical, unlabored, other - CPAP for sleep. ABSENT: rales, rhonchi, wheezes Cardiovascular exam: PRESENT: RRR, +S1, +S2. ABSENT: diastolic murmur, rubs, systolic murmur Pulses: PRESENT: normal dorsalis pedis pul Vascular exam: PRESENT: normal capillary refill GI/Abdominal exam: PRESENT: normal bowel sounds, soft. ABSENT: distended, guarding, mass, organolmegaly, rebound, tenderness Extremities exam: PRESENT: joint swelling - left knee. ABSENT: calf tenderness, clubbing, full ROM - limited LLE r/t pain, pedal edema Musculoskeletal exam: PRESENT: tenderness - lower back pain Neurological exam: PRESENT: alert, awake, oriented to person, oriented to place, oriented to time, oriented to situation, CN II-XII grossly intact, other - fatigued. ABSENT: motor sensory deficit Psychiatric exam: PRESENT: flat affect, normal mood. ABSENT: homicidal ideation, suicidal ideation Skin exam: PRESENT: dry, warm. ABSENT: cyanosis, intact - chronic rt toe wound, rash Results Laboratory Results: 10/29/19 06:02 10/29/19 06:02 10/29/19 10/29/19 06:02 06:02 WBC 7.3 RBC 4.58 Hgb 11.1 L Hct 34.1 L MCV 74 L MCH 24.1 L MCHC 32.5 RDW 18.4 H Plt Count 132 L Seg Neutrophils % 87.3 H Sodium 129.6 L Potassium 3.9 Chloride 93 L Carbon Dioxide 26 Anion Gap 11 BUN 40 H Creatinine 1.16 Est GFR ( Amer) > 60 Glucose 307 H Calcium 8.2 L Magnesium 2.4 H 10/28/19 16:08 Blood Blood Culture (PCR) - Final Strep Agalactiae - (Group B) 10/28/19 17:11 Blood Blood Culture (PCR) - Final Strep Agalactiae - (Group B) Impressions: Knee X-Ray 10/26/19 00:00 IMPRESSION: No acute fracture or dislocation of the left knee. Moderate knee joint effusion. Severe tricompartmental osteoarthritis. Assessment and Plan - Diagnosis (1) Bacteremia Is this a current diagnosis for this admission?: Yes Plan: Unclear source. Blood cultures (10/24/2019; 4 of 4 bottles) positive for group B strep. Blood cultures (10/28/2019; 4 of 4 bottles) positive for group B strep. Patient does have a chronic diabetic foot wound. Wound culture pending. Left knee synovial fluid culture pending; thus far negative for growth. Patient is admitted to medical floor on continuous cardiac telemetry. He is placed on IV cefepime (10/29/2019). Follow-up cultures pending. (2) Diabetic foot ulcer Qualifiers: Diabetic foot ulcer location: toe Diabetes mellitus type: type 2 Laterality: right Non-pressure ulcer stage: unspecified non-pressure ulcer stage Qualified Code(s): E11.621 - Type 2 diabetes mellitus with foot ulcer; L97.519 - Non-pressure chronic ulcer of other part of right foot with unspecified severity Is this a current diagnosis for this admission?: Yes Plan: Chronic right toe diabetic foot wound. Followed by the wound care clinic. Possible source Group B bacteremia; wound culture pending. Wound care per clinic's recommendations. Foot x-ray pending; may require MRI imaging to rule out osteomyelitis. (3) Left knee pain Qualifiers: Chronicity: acute Qualified Code(s): M25.562 - Pain in left knee Is this a current diagnosis for this admission?: Yes Plan: Likely secondary to gout. Some concern for septic arthritis given positive blood cultures, however, synovial fluid thus far negative for infection. Knee x-ray is benign. Following up with hip x-ray. May need to consider MRI imaging due to persistent bacteremia. (4) Acute gout due to renal impairment involving knee Qualifiers: Laterality: left Qualified Code(s): M10.362 - Gout due to renal impairment, left knee Is this a current diagnosis for this admission?: Yes Plan: Uric acid 11.0 Knee fluid culture and sensitivity pending. Continue on twice daily colchicine. We will trial prednisone for pain management as the patient does not tolerate NSAIDs. Patient became delirious following p.o. morphine last night; will decrease medication trial Tylenol and as needed tramadol or Percocet for pain management. (5) Anemia of renal disease Is this a current diagnosis for this admission?: Yes Plan: Stable; hemoglobin 11.1. No evidence of active bleeding at this time. Monitor daily CBC. (6) Chronic congestive heart failure Qualifiers: Heart failure type: unspecified Qualified Code(s): I50.9 - Heart failure, unspecified Is this a current diagnosis for this admission?: Yes Plan: Stable and without exacerbation at this time. Continue aspirin, atorvastatin/Zetia, home dose furosemide and metolazone. Cardiac/prerenal diet. Daily weights, strict I&O's. (7) Chronic kidney disease (CKD) Qualifiers: Chronic kidney disease stage: unspecified stage Qualified Code(s): N18.9 - Chronic kidney disease, unspecified Is this a current diagnosis for this admission?: Yes Plan: Acute injury superimposed on chronic kidney disease has resolved. Creatinine 1.73 -> 1.16 Continue to encourage p.o. fluids. Avoid nephrotoxic medications as able. Have resumed home dose furosemide and metolazone; watch closely for worsening renal function. Daily chemistries. (8) Hyperlipidemia Qualifiers: Hyperlipidemia type: unspecified Qualified Code(s): E78.5 - Hyperlipidemia, unspecified Is this a current diagnosis for this admission?: Yes Plan: Cardiac diet. Home dose atorvastatin and Zetia. (9) Hypertension Qualifiers: Hypertension type: essential hypertension Qualified Code(s): I10 - Essential (primary) hypertension Is this a current diagnosis for this admission?: Yes Plan: Continue home dose amlodipine, furosemide, Metolazone Cardiac diet. (10) Hyperuricemia Is this a current diagnosis for this admission?: Yes Plan: Uric acid 11.0 Twice daily colchicine. (11) Hypokalemia Is this a current diagnosis for this admission?: Yes Plan: Resolved. (12) Morbid obesity Is this a current diagnosis for this admission?: Yes Plan: BMI 41.2 Dietary discretion and lifestyle modification are encouraged. Registered dietitian and personal development educator consulted. (13) Renal transplant recipient Is this a current diagnosis for this admission?: Yes Plan: Renal function is stable. Continue home medication regiment. - Time Time Spent with patient: 35 or more minutes Medications reviewed and adjusted accordingly: Yes
[2019-10-29] MEDS: PREDNISONE 20 MG TABLET PO SCH (18:20)
--- NOTE | 2019-10-29 19:35 | RADIOLOGY REPORT (SQ) ---
EXAM DESCRIPTION: HIP BILATERAL COMPLETED DATE/TIME: 10/29/2019 6:50 pm REASON FOR STUDY: hip pain, recent fall COMPARISON: None. NUMBER OF VIEWS: Two views. TECHNIQUE: AP pelvis and additional frog-leg view of the right and left hip. LIMITATIONS: None. FINDINGS: MINERALIZATION: Normal. PRIMARY HIP: No fracture or dislocation. No worrisome bone lesions. OPPOSITE HIP: No fracture or dislocation. No worrisome bone lesions. PUBIS AND ISCHIUM: No fracture. PELVIS: No fracture. SACRUM: No fracture or dislocation. No worrisome bone lesions. LOWER LUMBAR SPINE: No fracture or dislocation. No worrisome bone lesions. No significant disc disea se. SOFT TISSUES: No findings. OTHER: No other significant finding. IMPRESSION: NEGATIVE STUDY OF THE RIGHT AND LEFT HIPS AND PELVIS. NO RADIOGRAPHIC EVIDENCE OF ACUTE INJURY. TECHNICAL DOCUMENTATION: JOB ID: [id number] 2011 [employer]- All Rights Reserved Reading location - IP/workstation name: [email or web address]
--- NOTE | 2019-10-29 19:51 | RADIOLOGY REPORT (SQ) ---
EXAM DESCRIPTION: L SPINE WHOLE COMPLETED DATE/TIME: 10/29/2019 6:50 pm REASON FOR STUDY: back pain, recent fall COMPARISON: 10/15/2018 NUMBER OF VIEWS: Five views including obliques. TECHNIQUE: AP, lateral, oblique, and sacral radiographic images acquired of the lumbar spine. LIMITATIONS: None. FINDINGS: MINERALIZATION: Normal. SEGMENTATION: S1 transitional anatomy. ALIGNMENT: Normal. VERTEBRAE: Maintained height. No fracture or worrisome bone lesion. DISCS: Multilevel disc space narrowing with osteophytes. POSTERIOR ELEMENTS: Pedicles and facets are intact. No pars defect or posterior arch defects. Facet arthropathy is present. HARDWARE: None in the spine. PARASPINAL SOFT TISSUES: Normal. PELVIS: Intact as visualized. No fractures or worrisome bone lesions. SI joints intact. OTHER: No other significant finding. IMPRESSION: No acute findings. TECHNICAL DOCUMENTATION: JOB ID: [id number] [place]-72 2010 [employer]- All Rights Reserved Reading location - IP/workstation name: [email or web address]
[2019-10-29] MEDS: INSULIN GLARGINE,HUM.REC.ANLOG 1,000 UNIT/10 ML VIAL SUBCUT SCH (22:11)
[2019-10-29] MEDS: ATORVASTATIN CALCIUM 10 MG TABLET PO SCH (22:13)
[2019-10-29] MEDS: METOLAZONE 2.5 MG TABLET PO SCH (22:13)
--- NOTE | 2019-10-29 22:43 | RADIOLOGY REPORT (SQ) ---
EXAM DESCRIPTION: XR FOOT 1-2 VIEWS COMPLETED DATE/TME: 10/29/2019 00:00 CLINICAL HISTORY: 59 years, Male, diabetic foot wound, bacteremia COMPARISON: June 25, 2019 NUMBER OF VIEWS: 2 TECHNIQUE: LIMITATIONS: None. FINDINGS: No acute fracture. Mild pes planus. Anterior calcaneal spurring. Osteoarthritis. Arthropathy of the toes with subluxation. This appearance is similar to prior. Soft tissue swelling involving the first digit, similar to prior. IMPRESSION: No interval change compared to prior. Soft tissue swelling and presumed wound of the first digit. Arthropathy copyright 2010 [employer]- All Rights Reserved
[2019-10-30] MEDS: CYCLOBENZAPRINE HCL 10 MG TABLET PO PRN (03:29)
[2019-10-30] MEDS: HEPARIN SOD (PORCINE) 5,000 UNIT/ML 1 ML VIAL SUBCUT SCH ×3 (05:25→22:42)
[2019-10-30] MEDS: MYFORTIC 180 MG PO SCH ×2 (05:26→17:13)
[2019-10-30] MEDS: CEFEPIME HCL 2 GM in DEXTROSE 5%-WATER 50 ML IV SCH ×2 (05:26→17:13)
[2019-10-30] MEDS: ENVARSUS 4 MG PO SCH (05:26)
[2019-10-30 06:56] LABS: HEMATOCRIT 35.7 % (37.9-51.0); HEMOGLOBIN 11.7 g/dL (13.5-17.0); MEAN CORPUSCULAR HEMOGLOBIN 24.4 pg (27.0-33.4); MEAN CORPUSCULAR HGB CONC 32.9 g/dL (32.0-36.0); MEAN CORPUSCULAR VOLUME 74 fl (80-97); PLATELET COUNT 129 10^3/uL (150-450); RED BLOOD COUNT 4.82 10^6/uL (4.35-5.55); RED CELL DISTRIBUTION WIDTH 18.3 % (11.5-14.0); WHITE BLOOD COUNT 6.9 10^3/uL (4.0-10.5)
[2019-10-30 07:25] LABS: ANION GAP 12 (5-19); BLOOD UREA NITROGEN 40 mg/dL (7-20); CARBON DIOXIDE 24 mmol/L (22-30); CHLORIDE 91 mmol/L (98-107); GLUCOSE 270 mg/dL (75-110); POTASSIUM 3.8 mmol/L (3.6-5.0)
--- NOTE | 2019-10-30 07:45 | PDOC PROGRESS REPORT ---
Subjective Progress Note for:: 10/30/19 Subjective:: Patient is delirious this AM. Nursing reports that he does have lucid intervals. Will re-evaluate later. Reason For Visit: ACUTE GOUT LEFT KNEE Physical Exam Vital Signs: Temp Pulse Resp BP Pulse Ox 97.8 F 90 20 151/74 H 93 10/30/19 00:07 10/30/19 00:07 10/30/19 00:07 10/30/19 00:07 10/30/19 00:07 Intake & Output 10/29/19 10/30/19 10/31/19 06:59 06:59 06:59 Intake Total 3090 3900 Output Total 1825 2425 Balance 1265 1475 Weight 163.8 kg 163.9 kg Physical Exam: Left lower extremity -Pulses 2+ distally -Compartments soft -Sensation grossly intact to L3-4-5 S1 -Motor grossly intact to EHL TA gastroc and quad -Effusion has returned. Large effusion today Results Laboratory Results: 10/30/19 05:27 10/30/19 05:27 10/30/19 10/30/19 05:27 05:27 WBC 6.9 RBC 4.82 Hgb 11.7 L Hct 35.7 L MCV 74 L MCH 24.4 L MCHC 32.9 RDW 18.3 H Plt Count 129 L Sodium 127.3 L Potassium 3.8 Chloride 91 L Carbon Dioxide 24 Anion Gap 12 BUN 40 H Creatinine 1.08 Est GFR ( Amer) > 60 Glucose 270 H Calcium 8.0 L 10/28/19 17:11 Blood Blood Culture (PCR) - Final Strep Agalactiae - (Group B) 10/28/19 16:08 Blood Blood Culture (PCR) - Final Strep Agalactiae - (Group B) Impressions: Knee X-Ray 10/26/19 00:00 IMPRESSION: No acute fracture or dislocation of the left knee. Moderate knee joint effusion. Severe tricompartmental osteoarthritis. Foot X-Ray 10/29/19 00:00 IMPRESSION: No interval change compared to prior. Soft tissue swelling and presumed wound of the first digit. Arthropathy copyright 2011 [employer]- All Rights Reserved Hip X-Ray 10/29/19 00:00 IMPRESSION: NEGATIVE STUDY OF THE RIGHT AND LEFT HIPS AND PELVIS. NO RADIOGRAPHIC EVIDENCE OF ACUTE INJURY. Lumbar Spine X-Ray 10/29/19 00:00 IMPRESSION: No acute findings. Assessment & Plan - Diagnosis (1) Effusion, left knee Is this a current diagnosis for this admission?: Yes Plan: Unfortunately his knee fluid has grown out Streptococcus. Will need washout. We will plan for today. Keep n.p.o., will need hospitalist to discuss medical clearance for surgical intervention. -If not clear today may potentially be able to add on tomorrow, would then decompress knee again this afternoon with subsequent aspiration (2) Gout attack Qualifiers: Gout site: knee Gout etiology: idiopathic Laterality: left Qualified Code(s): M10.062 - Idiopathic gout, left knee Is this a current diagnosis for this admission?: Yes - Time Time Spent with patient: Less than 15 minutes
[2019-10-30] MEDS: INSULIN LISPRO 100 UNIT/ML 3 ML VIAL SUBCUT SCH ×4 (08:28→22:45)
[2019-10-30] MEDS: POTASSIUM CHLORIDE 10 MEQ TABLET.ER PO SCH ×3 (08:28→17:12)
[2019-10-30] MEDS: PHOSPHORUS #1 250 MG TABLET PO SCH ×4 (08:28→22:40)
[2019-10-30] MEDS: PREDNISONE 20 MG TABLET PO SCH (09:15)
[2019-10-30] MEDS: COLCHICINE 0.6 MG TABLET PO SCH (09:15)
[2019-10-30] MEDS: ASPIRIN 81 MG TABLET, ENT COATED PO SCH (09:15)
[2019-10-30] MEDS: DOCUSATE SODIUM 100 MG CAPSULE PO SCH ×2 (09:15→17:12)
[2019-10-30] MEDS: FAMOTIDINE 20 MG TABLET PO SCH ×2 (09:16→22:40)
[2019-10-30] MEDS: FUROSEMIDE 80 MG TABLET PO SCH (09:16)
[2019-10-30] MEDS: EZETIMIBE 10 MG TABLET PO SCH (09:16)
[2019-10-30] MEDS: AMLODIPINE BESYLATE 5 MG TABLET PO SCH (09:16)
--- NOTE | 2019-10-30 13:32 | PDOC CONSULTATION ---
Consultation Consult Date: 10/30/19 Attending physician:: ALICE SEQUEIRA Provider Consulted: CATALINA HUGHES Consult reason:: Preop clearance History of Present Illness Admission Date/PCP: 10/26/19 21:53 KORINA MCFARLANE MD Patient complains of: Generalized fatigue and tiredness. History of Present Illness: SHI SIDDIQI is a 59 year old male, who was admitted with general fatigue and tiredness. He is noted to have left knee swelling and pain along with increased local temperature. I been asked to evaluate patient's cardiac status as he is due to go for surgery on his left knee. I am told by the nurses that it is going to be just arthroscopy. Patient has significant comorbid condition including severe obesity, severe sleep apnea, paroxysmal atrial fibrillation, patient denies any ongoing chest pain or any recent cardiac issues. Past Medical History Cardiac Medical History: Reports: Congestive Heart Failure, DVT, Hyperlipidema, Hypertension, Peripheral Vascular Disease Denies: Atrial Fibrillation, Coronary Artery Disease, Myocardial Infarction, Pulmonary Embolism Pulmonary Medical History: Reports: Bronchitis, Pneumonia, Tuberculosis Denies: Asthma, Chronic Obstructive Pulmonary Disease (COPD) EENT Medical History: Reports: Cataracts Denies: Ears - Hearing aids Neurological Medical History: Reports: Other - Diabetic polyneuropathy Denies: Hemorrhagic CVA, Ischemic CVA, Seizures Endocrine Medical History: Reports: Diabetes Mellitus Type 2, Obesity Denies: Diabetes Mellitus Type 1, Hyperthyroidism, Hypothyroidism Renal/ Medical History: Reports: Chronic Kidney Disease, End Stage Renal Disease - Status post renal transplant, Other - Diabetic nephropathy Denies: Nephrolithiasis Malignancy Medical History: Reports: None GI Medical History: Reports: Gastroesophageal Reflux Disease Denies: Cirrhosis, Crohn's Disease, Hepatitis, Peptic Ulcer Disease, Ulcerative Colitis Musculoskeltal Medical History: Reports: Arthritis - Generalized, Gout, Other - Chronic back pain Skin Medical History: Denies: Eczema, Psoriasis Psychiatric Medical History: Reports: None, Depression Denies: Alcohol Dependency, Substance Abuse, Tobacco Dependency Traumatic Medical History: Reports: None Hematology: Reports: Anemia - Chronic Denies: Bleeding Tendencies Infectious Medical History: Reports: None Past Surgical History Past Surgical History: Reports: Cardiac Catheterization, Orthopedic Surgery - rt knee, rt hand, rt elbow, Renal Transplant, Vascular Surgery - stents in bilateral legs, tunnel AV grafts for dialysis, Other - Cataract surgery, gastric sleeve surgery Social History Information Source: Patient Lives with: Family Smoking Status: Never Smoker Electronic Cigarette use?: No Frequency of Alcohol Use: None Hx Recreational Drug Use: No Drugs: None Hx Prescription Drug Abuse: No - Advance Directive Resuscitation Status: Full Code Family History Family History: CAD, DM, Hypertension, Malignancy Parental Family History Reviewed: No Children Family History Reviewed: No Sibling(s) Family History Reviewed.: No Medication/Allergy Home Medications: Aspirin [Ecotrin] 81 mg PO DAILY 12/23/16 Famotidine 20 mg PO BID 12/23/16 Furosemide [Lasix] 40 mg PO QPM 12/23/16 Furosemide [Lasix] 80 mg PO QAM 12/23/16 Insulin Aspart [Novolog Flexpen] 0 unit SQ .SLIDING SCALE 12/23/16 Insulin Detemir [Levemir Flextouch] 50 unit SQ QHS 12/23/16 Mycophenolate Sodium [Myfortic 180 mg Tablet.dr] 360 mg PO BID 12/23/16 Prednisone 5 mg PO DAILY 12/23/16 Tacrolimus [Envarsus Xr] 16 mg PO QAM 12/23/16 Tamsulosin HCl 0.4 mg PO DAILY 12/23/16 Rosuvastatin Calcium 5 mg PO QHS 07/02/18 Oseltamivir Phosphate [Tamiflu 75 mg Capsule] 75 mg PO BID #9 capsule 10/24/19 Amlodipine Besylate [Norvasc 5 mg Tablet] 5 mg PO DAILY 10/27/19 Docusate Sodium [Colace 100 mg Capsule] 100 mg PO BID 10/27/19 Ezetimibe [Zetia 10 mg Tablet] 10 mg PO DAILY 10/27/19 Gabapentin [Neurontin 300 mg Capsule] 300 mg PO Q8 10/27/19 Levalbuterol Tartrate [Xopenex Hfa] 2 puff IH DAILYP PRN 10/27/19 Metolazone [Zaroxolyn 2.5 Mg Tablet] 2.5 mg PO QHS 10/27/19 Allergies/Adverse Reactions: rivaroxaban [From Xarelto] Allergy (Severe, Verified 10/26/19 12:47) HEMORRHAGING ibuprofen Allergy (Mild, Verified 10/26/19 12:47) because of kidneys iodine [Iodine] Allergy (Mild, Verified 10/26/19 12:47) Hives ketorolac tromethamine [From Toradol] Adverse Reaction (Severe, Verified 12:47) Vomiting warfarin sodium [From Coumadin] Adverse Reaction (Severe, Verified 10/26/19 12:47) weakness enoxaparin sodium [From Lovenox] Adverse Reaction (Intermediate, Verified 10/26/19 12:47) falls promethazine HCl [From Phenergan] Adverse Reaction (Unknown, Verified 10/26/19 12:47) Vomiting gabapentin Adverse Reaction (Verified 10/26/19 12:47) chlorohexidine Allergy (Mild, Uncoded 10/26/19 12:47) Hives Review of Systems ROS unobtainable: Due to mental status - Patient noted to be very sleepy during the interview and was difficult to keep him awake to answer questions except for direct questioning. Physical Exam Vital Signs: Temp Pulse Resp BP Pulse Ox 98.2 F 77 16 152/70 H 97 10/30/19 11:27 10/30/19 11:27 10/30/19 11:27 10/30/19 11:27 10/30/19 11:27 Intake & Output 10/29/19 10/30/19 10/31/19 06:59 06:59 06:59 Intake Total 3090 3900 Output Total 1825 2425 Balance 1265 1475 Weight 163.8 kg 163.9 kg Exam: GENERAL: well-nourished and in no acute distress. Alert and oriented x2, patien t is lethargic and very sleepy. HEAD: Atraumatic, normocephalic. EYES: CARTER, sclera anicteric, conjunctiva are normal. ENT: Moist mucous membranes. No oral ulcerations or bleeding gums noted. No ob vious ear, nose or throat abnormalities noted. NECK: supple without lymphadenopathy. Trachea is central. No cervical or axillary lymphadenopathy noted. Carotids are 2+, JVD WNL LUNGS: Breath sounds clear bilaterally. No wheezes rales or rhonchi noted. No significant dullness noted on percussion. CHEST: Palpation of the chest wall shows no significant chest wall tenderness. 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 ABDOMEN: Soft, no significant tenderness appreciated, normoactive bowel sounds. No guarding, no rebound. No rigidity noted . No masses appreciated. EXTREMITIES: Pedal pulses are 1-2+, no calf tenderness noted. No clubbing or cyanosis. 1+ pedal edema noted. Left knee swelling and increased warmth noted NEUROLOGICAL: Focused neurological exam showed no significant neurologic deficit. Normal speech, no focal weakness appreciated. PSYCH: Normal mood, normal affect. Judgment and insight within normal limits. SKIN: No significant ecchymosis, skin is noted to be warm. MUSCULOSKELETAL EXAM: No significant acute joint swelling noted. Results Laboratory Results: 10/30/19 05:27 10/30/19 05:27 10/30/19 10/30/19 05:27 05:27 WBC 6.9 RBC 4.82 Hgb 11.7 L Hct 35.7 L MCV 74 L MCH 24.4 L MCHC 32.9 RDW 18.3 H Plt Count 129 L Sodium 127.3 L Potassium 3.8 Chloride 91 L Carbon Dioxide 24 Anion Gap 12 BUN 40 H Creatinine 1.08 Est GFR ( Amer) > 60 Glucose 270 H Calcium 8.0 L 10/28/19 17:11 Blood Blood Culture (PCR) - Final Strep Agalactiae - (Group B) 10/28/19 16:08 Blood Blood Culture (PCR) - Final Strep Agalactiae - (Group B) EKG Comments: Atrial fibrillation with somewhat rapid ventricular response but no acute ST segment changes Impressions: Knee X-Ray 10/26/19 00:00 IMPRESSION: No acute fracture or dislocation of the left knee. Moderate knee joint effusion. Severe tricompartmental osteoarthritis. Foot X-Ray 10/29/19 00:00 IMPRESSION: No interval change compared to prior. Soft tissue swelling and presumed wound of the first digit. Arthropathy copyright 2011 [employer]- All Rights Reserved Hip X-Ray 10/29/19 00:00 IMPRESSION: NEGATIVE STUDY OF THE RIGHT AND LEFT HIPS AND PELVIS. NO RADIOGRAPHIC EVIDENCE OF ACUTE INJURY. Lumbar Spine X-Ray 10/29/19 00:00 IMPRESSION: No acute findings. Assessment & Plan - Diagnosis (1) Unspecified atrial fibrillation Qualifiers: Atrial fibrillation type: unspecified Qualified Code(s): I48.91 - Unspecified atrial fibrillation Is this a current diagnosis for this admission?: Yes (2) Obesity, morbid, BMI 40.0-49.9 Is this a current diagnosis for this admission?: Yes (3) Obstructive sleep apnea Is this a current diagnosis for this admission?: Yes (4) Personal history of DVT (deep vein thrombosis) Is this a current diagnosis for this admission?: Yes (5) Chronic congestive heart failure Qualifiers: Heart failure type: unspecified Qualified Code(s): I50.9 - Heart failure, unspecified Is this a current diagnosis for this admission?: Yes (6) Chronic kidney disease (CKD) Qualifiers: Chronic kidney disease stage: unspecified stage Qualified Code(s): N18.9 - Chronic kidney disease, unspecified Is this a current diagnosis for this admission?: Yes - Notes Notes: Patient is due to undergo arthroscopic surgery on the left knee. This is relatively low risk. However patient has severe obesity and also severe sleep apnea. Have asked nurses to inform anesthesiologist about severe sleep apnea. In addition patient has history of DVT. Patient will benefit from DVT prophylaxis. At this point will also recommend that patient be closely observed for any respiratory decompensation during surgery and postop due to presence of severe sleep apnea. Would also recommend patient be started on Eliquis 2.5 mg p.o. twice daily at least for DVT prophylaxis and for atrial fibrillation. It seems patient does have a history of hemorrhage but has not had any episode recently and his hemoglobin has been stable. CHF seems compensated. Did order a 2D echo. Please note that patient has positive blood cultures. Dr. Mcfarlane is the pharmaceutical operator and have discussed this case with him. Hospitalist managing him for other issues. - Time Time Spent: 30 to 50 Minutes
[2019-10-30] MEDS ORDERED: MIDAZOLAM 2 MG/2 ML INJ ONE (14:43)
[2019-10-30] MEDS ORDERED: FENTANYL CITRATE INJ/PF 100 MCG/2 ML AMPUL ONE (14:43)
[2019-10-30] MEDS ORDERED: PROPOFOL INJ 200 MG/20 ML VIAL IV ONE (14:43)
[2019-10-30] MEDS ORDERED: ONDANSETRON HCL INJ/PF 4 MG/2 ML SDV ONE (14:44)
[2019-10-30] MEDS ORDERED: AMPICILLIN SOD/SULBACTAM 1.5 GM VIAL ONE (14:48)
[2019-10-30] MEDS ORDERED: EPINEPHRINE INJ/PF 1 MG/1 ML AMPULE ONE (14:49)
[2019-10-30] MEDS ORDERED: GENTAMICIN SULFATE INJ 80 MG/2 ML VIAL ONE (14:49)
[2019-10-30] MEDS ORDERED: DIPHENHYDRAMINE HCL 50 MG/ML VIAL IV PRN (15:36)
[2019-10-30] MEDS ORDERED: MORPHINE SULFATE 10 MG/ML INJ IV PRN (15:36)
[2019-10-30] MEDS ORDERED: MEPERIDINE HCL/PF INJ 25 MG/1 ML DISP.SYRIN IV PRN (15:36)
[2019-10-30] MEDS ORDERED: PROMETHAZINE HCL INJ 25 MG/1 ML VIAL IV PRN ×2 (15:36)
[2019-10-30] MEDS ORDERED: OXYCODONE-ACETAMINOPHEN 5-325 MG TABLET PO PRN ×2 (15:36)
[2019-10-30] MEDS ORDERED: FENTANYL CITRATE INJ/PF 100 MCG/2 ML AMPUL IV PRN ×3 (15:36)
[2019-10-30] MEDS ORDERED: KETAMINE HCL INJ 500 MG/10 ML VIAL ONE (15:38)
--- NOTE | 2019-10-30 16:27 | Operative Report ---
Operative Report DATE OF SURGERY: 10/30/19 PREOPERATIVE DIAGNOSIS: Left lumbee septic knee arthritis POSTOPERATIVE DIAGNOSIS: Left lumbee knee septic arthritis OPERATION: Left knee arthroscopic irrigation and debridement, removal of loose body SURGEON: ARIE LÓPEZ JR ANESTHESIA: LMAC TISSUE REMOVED OR ALTERED: Knee fluid cultures taken COMPLICATIONS: None ESTIMATED BLOOD LOSS: 20cc PROCEDURE: DESCRIPTION OF THE PROCEDURE: The patient was placed supine on the operating room table. After the patient was placed under LMAC, and appropriate timeout was performed. The patient was prepped and draped in the usual sterile fashion for arthroscopic surgery. The left lower extremity was then exsanguinated with the use of an Esmarch bandage and the tourniquet was inflated to 250 mmHg. The operation commenced with creation of the lateral portal utilizing his prior incision. Immediately, purulent drainage was flowing from this portal site. the arthroscope was directed into the suprapatellar pouch with the knee held in extension. Fluid from the portal site was collected from culture through the trocar. A systematic examination of the left knee was begun arthroscopically. The patellofemoral articulation was visualized and grade 4 changes are present in the patellofemoral joint. The medial gutter was entered. The medial compartment was then entered and the medial portal was established under direct visualization with a spinal needle. The suction shaver was introduced and we began to irrigate with gentamicin impregnated sterile saline. Grade 4 changes were noted on all compartments and all surfaces. The medial compartment was visualized and debrided of any loose tissue, followed by inspection of the notch which had osteophytes present both on the tibia as well as the femoral side with attritional changes of both the PCL and ACL which appeared to have been deficient, followed by progression into the lateral compartment and continued removal of all loose debris and loose tissue. The patellofemoral compartment was revisited and we continued to address all 3 compartments as we waited for irrigation through 6 L of fluid. A loose body was noted in the medial compartment which was then removed. Upon completion of 6 L of irrigation, 3 g of Unasyn were injected into the joint and a portal stitch was applied to the lateral portal, the medial portal was left open. The tourniquet was deflated. The patient was recovered from his anesthetic and was returned to the recovery room in stable condition. There were no complications.
[2019-10-30] MEDS: FUROSEMIDE 40 MG TABLET PO SCH (17:12)
[2019-10-30] MEDS: TAMSULOSIN HCL 0.4 MG CAP.SR.24H PO SCH (17:12)
--- NOTE | 2019-10-30 17:22 | EKG REPORT ---
SEVERITY:- ABNORMAL ECG - ATRIAL FIBRILLATION, V-RATE 67-112 : Confirmed by: Roxane Zelaya MD 30-Oct-2019 17:22:01
--- NOTE | 2019-10-30 19:14 | PDOC PROGRESS REPORT ---
Subjective Progress Note for:: 10/30/19 Subjective:: The patient is a 59-year-old male with a past medical history of CHF, DVT, hyperlipidemia, hypertension, PVD, tuberculosis, DM 2, diabetic polyneuropathy, obesity, CKD status post renal transplant, GERD, arthritis, and depression who was admitted 10/26/2019 with inability to bear weight secondary to left knee pain related to gout. I did speak with the patient's early this morning to explain recommendations by Dr. Perera for the patient to undergo knee arthroscopic due to septic arthritis with bacteremia. We did discuss the patient's group B bacteremia with recommendations for continued IV antibiotics with end date being determined pending additional cultu res. Patient's did ask me to reach out to his renal transplant specialist; I did contact Dr. Martinez's office and spoke with his nurse who stated should relay information and call back. At time of this dictation, I have not had a follow- up with Dr. Martinez's office. I did make attempts to round on the patient today, but unfortunately was not able to do a [id number] as he was transferred down to the OR prior to 1430 when I rounded and at 7 PM had not yet returned to his room. Reason For Visit: ACUTE GOUT LEFT KNEE Physical Exam Vital Signs: Temp Pulse Resp BP Pulse Ox 98.2 F 80 21 H 155/52 H 94 10/30/19 17:20 10/30/19 17:20 10/30/19 17:20 10/30/19 17:20 10/30/19 17:20 Intake & Output 10/29/19 10/30/19 10/31/19 06:59 06:59 06:59 Intake Total 3090 3900 625 Output Total 1825 2425 230 Balance 1265 1475 395 Weight 163.8 kg 163.9 kg 163.9 kg Results Laboratory Results: 10/30/19 05:27 10/30/19 05:27 10/30/19 10/30/19 05:27 05:27 WBC 6.9 RBC 4.82 Hgb 11.7 L Hct 35.7 L MCV 74 L MCH 24.4 L MCHC 32.9 RDW 18.3 H Plt Count 129 L Sodium 127.3 L Potassium 3.8 Chloride 91 L Carbon Dioxide 24 Anion Gap 12 BUN 40 H Creatinine 1.08 Est GFR ( Amer) > 60 Glucose 270 H Calcium 8.0 L 10/28/19 17:11 Blood Blood Culture (PCR) - Final Strep Agalactiae - (Group B) 10/28/19 16:08 Blood Blood Culture (PCR) - Final Strep Agalactiae - (Group B) Impressions: Knee X-Ray 10/26/19 00:00 IMPRESSION: No acute fracture or dislocation of the left knee. Moderate knee joint effusion. Severe tricompartmental osteoarthritis. Foot X-Ray 10/29/19 00:00 IMPRESSION: No interval change compared to prior. Soft tissue swelling and presumed wound of the first digit. Arthropathy copyright 2010 [employer]- All Rights Reserved Hip X-Ray 10/29/19 00:00 IMPRESSION: NEGATIVE STUDY OF THE RIGHT AND LEFT HIPS AND PELVIS. NO RADIOGRAPHIC EVIDENCE OF ACUTE INJURY. Lumbar Spine X-Ray 10/29/19 00:00 IMPRESSION: No acute findings. Assessment and Plan - Diagnosis (1) Bacteremia Is this a current diagnosis for this admission?: Yes Plan: Likely secondary to left knee septic arthritis. Blood cultures (10/24/2019; 4 of 4 bottles) positive for group B strep. Blood cultures (10/28/2019; 4 of 4 bottles) positive for group B strep. Blood culture (10/30/2019) pending. Patient does have a chronic diabetic foot wound. Wound culture pending. Left knee synovial fluid culture shows group B strep/ Patient is admitted to medical floor on continuous cardiac telemetry. He is placed on IV cefepime (10/29/2019). Follow-up cultures pending. To OR w/ Dr. Perera for arthroscope with wash out today. (2) Septic arthritis Qualifiers: Septic arthritis location: knee Laterality: left Is this a current diagnosis for this admission?: Yes Plan: Synovial fluid w/ Group B strep. Blood cultures positive for Group B strep. Knee x-ray is benign. Hip x-ray benign. Underwent knee arthroscopic wash out per Dr. Perera today. Continue Cefepime. Consider ID consultation. (3) Left knee pain Qualifiers: Chronicity: acute Qualified Code(s): M25.562 - Pain in left knee Is this a current diagnosis for this admission?: Yes Plan: Secondary to septic arthritis. Management as above. Analgesics as needed. (4) Diabetic foot ulcer Qualifiers: Diabetic foot ulcer location: toe Diabetes mellitus type: type 2 Laterality: right Non-pressure ulcer stage: unspecified non-pressure ulcer stage Qualified Code(s): E11.621 - Type 2 diabetes mellitus with foot ulcer; L97.519 - Non-pressure chronic ulcer of other part of right foot with unspecified severity Is this a current diagnosis for this admission?: Yes Plan: Chronic right toe diabetic foot wound. Foot x-ray not suggestive of osteomyelitis. Followed by the wound care clinic. Possible source Group B bacteremia; wound culture pending. Wound care per clinic's recommendations. (5) Acute gout due to renal impairment involving knee Qualifiers: Laterality: left Qualified Code(s): M10.362 - Gout due to renal impairment, left knee Is this a current diagnosis for this admission?: Yes Plan: Uric acid 11.0 Continue on twice daily colchicine. (6) Anemia of renal disease Is this a current diagnosis for this admission?: Yes Plan: Stable; hemoglobin 11.7. No evidence of active bleeding at this time. Monitor daily CBC. (7) Chronic congestive heart failure Qualifiers: Heart failure type: unspecified Qualified Code(s): I50.9 - Heart failure, unspecified Is this a current diagnosis for this admission?: Yes Plan: Stable and without exacerbation at this time. Continue aspirin, atorvastatin/Zetia, home dose furosemide and metolazone. Cardiac/prerenal diet. Daily weights, strict I&O's. Dr. Sam is consulted; appreciate his assistance. (8) Chronic kidney disease (CKD) Qualifiers: Chronic kidney disease stage: unspecified stage Qualified Code(s): N18.9 - Chronic kidney disease, unspecified Is this a current diagnosis for this admission?: Yes Plan: Acute injury superimposed on chronic kidney disease has resolved. Creatinine 1.73 -> 1.16-> 1.08 Continue to encourage p.o. fluids. Avoid nephrotoxic medications as able. Have resumed home dose furosemide and metolazone; watch closely for worsening renal function. Daily chemistries. (9) Hyperlipidemia Qualifiers: Hyperlipidemia type: unspecified Qualified Code(s): E78.5 - Hyperlipidemia, unspecified Is this a current diagnosis for this admission?: Yes Plan: Cardiac diet. Home dose atorvastatin and Zetia. (10) Hypertension Qualifiers: Hypertension type: essential hypertension Qualified Code(s): I10 - Essential (primary) hypertension Is this a current diagnosis for this admission?: Yes Plan: Continue home dose amlodipine, furosemide, Metolazone Cardiac diet. (11) Hyperuricemia Is this a current diagnosis for this admission?: Yes Plan: Uric acid 11.0 Twice daily colchicine. (12) Hypokalemia Is this a current diagnosis for this admission?: Yes Plan: Resolved. (13) Morbid obesity Is this a current diagnosis for this admission?: Yes Plan: BMI 41.2 Dietary discretion and lifestyle modification are encouraged. Registered dietitian and certified lactation educator consulted. (14) Renal transplant recipient Is this a current diagnosis for this admission?: Yes Plan: Renal function is stable. Continue home medication regiment. (15) Unspecified atrial fibrillation Qualifiers: Atrial fibrillation type: unspecified Qualified Code(s): I48.91 - Unspecified atrial fibrillation Is this a current diagnosis for this admission?: Yes Plan: Noted on preop EKG. New diagnosis per patient's primary computer application developer, Dr. Sam. Patient is placed on telemetry. Heart rate currently acceptable without rate controlling medications. Anticoagulations on hold at this time as patient has undergone knee arthroscopy; will need to evaluate CHADsVASc score and discuss with his transplant surgeon prior to starting on chronic anticoagulation. Dr. Sam is consulted; appreciate his assistance. - Time Medications reviewed and adjusted accordingly: Yes
[2019-10-30] MEDS: ATORVASTATIN CALCIUM 10 MG TABLET PO SCH (22:41)
[2019-10-30] MEDS: INSULIN GLARGINE,HUM.REC.ANLOG 1,000 UNIT/10 ML VIAL SUBCUT SCH (22:41)
[2019-10-30] MEDS: METOLAZONE 2.5 MG TABLET PO SCH (22:42)
[2019-10-31] MEDS: ENVARSUS 4 MG PO SCH (06:01)
[2019-10-31] MEDS: CEFEPIME HCL 2 GM in DEXTROSE 5%-WATER 50 ML IV SCH ×2 (06:01→17:59)
[2019-10-31] MEDS: MYFORTIC 180 MG PO SCH ×2 (06:02→17:59)
[2019-10-31] MEDS: HEPARIN SOD (PORCINE) 5,000 UNIT/ML 1 ML VIAL SUBCUT SCH ×2 (06:03→13:37)
[2019-10-31 08:24] LABS: HEMATOCRIT 36.7 % (37.9-51.0); HEMOGLOBIN 12.2 g/dL (13.5-17.0); MEAN CORPUSCULAR HEMOGLOBIN 24.8 pg (27.0-33.4); MEAN CORPUSCULAR HGB CONC 33.2 g/dL (32.0-36.0); MEAN CORPUSCULAR VOLUME 75 fl (80-97); PLATELET COUNT 147 10^3/uL (150-450); RED BLOOD COUNT 4.93 10^6/uL (4.35-5.55); RED CELL DISTRIBUTION WIDTH 18.4 % (11.5-14.0); WHITE BLOOD COUNT 10.2 10^3/uL (4.0-10.5)
[2019-10-31] MEDS: PHOSPHORUS #1 250 MG TABLET PO SCH ×4 (08:46→22:30)
[2019-10-31] MEDS: INSULIN LISPRO 100 UNIT/ML 3 ML VIAL SUBCUT SCH ×4 (08:47→22:29)
[2019-10-31] MEDS: POTASSIUM CHLORIDE 10 MEQ TABLET.ER PO SCH ×3 (08:47→17:58)
[2019-10-31 08:54] LABS: ANION GAP 13 (5-19); BLOOD UREA NITROGEN 35 mg/dL (7-20); CALCIUM 7.9 mg/dL (8.4-10.2); CARBON DIOXIDE 24 mmol/L (22-30); CHLORIDE 88 mmol/L (98-107); GLUCOSE 225 mg/dL (75-110); POTASSIUM 3.5 mmol/L (3.6-5.0)
--- NOTE | 2019-10-31 10:01 | PDOC PROGRESS REPORT ---
Subjective Progress Note for:: 10/31/19 Subjective:: Patient claims to be feeling much better. He is denying any chest pain or shortness of breath. He is concerned about ambulation. He had surgery on his left knee which is currently in wraps. We are awaiting surgical clearance to start him on chronic anticoagulation. Reason For Visit: ACUTE GOUT LEFT KNEE Physical Exam Vital Signs: Temp Pulse Resp BP Pulse Ox 98.2 F 76 14 151/65 H 96 10/31/19 07:51 10/31/19 07:51 10/31/19 07:51 10/31/19 07:51 10/31/19 07:51 Intake & Output 10/30/19 10/31/19 11/01/19 06:59 06:59 06:59 Intake Total 3900 3925 50 Output Total 2425 2180 Balance 1475 1745 50 Weight 163.9 kg 168.6 kg Exam: GENERAL: well-nourished and in no acute distress. Alert and oriented x3. Nursing reporting intermittent sleepiness and lethargy. HEAD: Atraumatic, normocephalic. EYES: CARTER, sclera anicteric, conjunctiva are normal. ENT: Moist mucous membranes. No oral ulcerations or bleeding gums noted. No obvious ear, nose or throat abnormalities noted. NECK: supple without lymphadenopathy. Trachea is central. No cervical or axillary lymphadenopathy noted. Carotids are 2+, JVD WNL LUNGS: Breath sounds clear bilaterally. No wheezes rales or rhonchi noted. No significant dullness noted on percussion. CHEST: Palpation of the chest wall shows no significant chest wall tenderness. HEART: Anderson [employer]ER, No PSH, 1/6 ANTHONY aortic area, 1/6 navarro systolic murmur mitral area, no rubs, no gallops. ABDOMEN: Soft, no significant tenderness appreciated, normoactive bowel sounds. No guarding, no rebound. No rigidity noted . No masses appreciated. EXTREMITIES: Pedal pulses are 1-2+, no calf tenderness noted. No clubbing or cyanosis. 1+ pedal edema noted. Left knee and wraps NEUROLOGICAL: Focused neurological exam showed no significant neurologic deficit. Normal speech, no focal weakness appreciated. PSYCH: Normal mood, normal affect. Judgment and insight within normal limits. SKIN: No significant ecchymosis, skin is noted to be warm. MUSCULOSKELETAL EXAM: No significant acute joint swelling noted. Results Laboratory Results: 10/31/19 08:00 10/31/19 08:00 10/31/19 10/31/19 08:00 08:00 WBC 10.2 RBC 4.93 Hgb 12.2 L Hct 36.7 L MCV 75 L MCH 24.8 L MCHC 33.2 RDW 18.4 H Plt Count 147 L Sodium 125.0 L Potassium 3.5 L Chloride 88 L Carbon Dioxide 24 Anion Gap 13 BUN 35 H Creatinine 1.04 Est GFR ( Amer) > 60 Glucose 225 H Calcium 7.9 L 10/28/19 16:08 Blood Blood Culture (PCR) - Final Strep Agalactiae - (Group B) 10/28/19 16:08 Blood Blood Culture - Final Group B Beta Streptococcus 10/28/19 17:11 Blood Blood Culture (PCR) - Final Strep Agalactiae - (Group B) 10/28/19 17:11 Blood Blood Culture - Final Group B Beta Streptococcus 10/27/19 11:20 Knee Fluid - Left Gram Stain - Final 10/27/19 11:20 Knee Fluid - Left Body Fluid Culture - Final Group B Beta Streptococcus No Anaerobic Organisms EKG Comments: Shows atrial flutter fibrillation with controlled ventricular response. Impressions: Knee X-Ray 10/26/19 00:00 IMPRESSION: No acute fracture or dislocation of the left knee. Moderate knee joint effusion. Severe tricompartmental osteoarthritis. Foot X-Ray 10/29/19 00:00 IMPRESSION: No interval change compared to prior. Soft tissue swelling and presumed wound of the first digit. Arthropathy copyright 2011 [employer]- All Rights Reserved Hip X-Ray 10/29/19 00:00 IMPRESSION: NEGATIVE STUDY OF THE RIGHT AND LEFT HIPS AND PELVIS. NO RADIOGRAPHIC EVIDENCE OF ACUTE INJURY. Lumbar Spine X-Ray 10/29/19 00:00 IMPRESSION: No acute findings. Assessment & Plan - Diagnosis (1) Unspecified atrial fibrillation Qualifiers: Atrial fibrillation type: unspecified Qualified Code(s): I48.91 - Unspecified atrial fibrillation Is this a current diagnosis for this admission?: Yes (2) Obesity, morbid, BMI 40.0-49.9 Is this a current diagnosis for this admission?: Yes (3) Obstructive sleep apnea Is this a current diagnosis for this admission?: Yes (4) Personal history of DVT (deep vein thrombosis) Is this a current diagnosis for this admission?: Yes (5) Chronic congestive heart failure Qualifiers: Heart failure type: unspecified Qualified Code(s): I50.9 - Heart failure, unspecified Is this a current diagnosis for this admission?: Yes (6) Chronic kidney disease (CKD) Qualifiers: Chronic kidney disease stage: unspecified stage Qualified Code(s): N18.9 - Chronic kidney disease, unspecified Is this a current diagnosis for this admission?: Yes - Notes Notes: Patient noted to have fared very well following and with knee surgery. Remains in atrial flutter fibrillation which I feel is probably chronic. Will recommend chronic anticoagulation with Eliquis at 5 mg p.o. twice daily. Because of previous bleeding risk will recommend to stop aspirin. As regards CHF patient seems well compensated. I am surprised to see that he has almost normal renal functions. As regards sleep apnea, patient should wear CPAP/BiPAP at night and also when he is planning to take a nap. Patient has numerous other comorbid conditions which are being very well managed by the hospitalist. Cardiac wall he seems stable except for having atrial fibrillation. However rate is well controlled. There is no evidence of CHF on clinical exam LDL is noted to be 100. Goal should be less than 70. We will therefore increase Lipitor to 20 mg p.o. nightly.
[2019-10-31] MEDS: FAMOTIDINE 20 MG TABLET PO SCH ×2 (10:03→22:30)
[2019-10-31] MEDS: ASPIRIN 81 MG TABLET, ENT COATED PO SCH (10:03)
[2019-10-31] MEDS: PREDNISONE 20 MG TABLET PO SCH (10:03)
[2019-10-31] MEDS: DOCUSATE SODIUM 100 MG CAPSULE PO SCH ×2 (10:03→17:58)
[2019-10-31] MEDS: FUROSEMIDE 80 MG TABLET PO SCH (10:03)
[2019-10-31] MEDS: AMLODIPINE BESYLATE 5 MG TABLET PO SCH (10:03)
[2019-10-31] MEDS: EZETIMIBE 10 MG TABLET PO SCH (10:03)
[2019-10-31] MEDS: CYCLOBENZAPRINE HCL 10 MG TABLET PO PRN (15:57)
--- NOTE | 2019-10-31 16:42 | PDOC PROGRESS REPORT ---
Subjective Progress Note for:: 10/31/19 Subjective:: The patient is a 59-year-old male with a past medical history of CHF, DVT, hyperlipidemia, hypertension, PVD, tuberculosis, DM 2, diabetic polyneuropathy, obesity, CKD status post renal transplant, GERD, arthritis, and depression who was admitted 10/26/2019 with inability to bear weight secondary to left knee pain related to gout. The patient was seen on afternoon rounds while his was present. He was found to be sleeping soundly but woke when I said his name. He is alert and oriented x4, but quite drowsy and falls back to sleep several times during her conversation. The patient's reports that he has had intermittent periods of confusion today, but does improve to have slightly better mentation as compared to yesterday. She also notes that he has been able to bend his knee without significant discomfort today. They do report difficulty with urinary retention/hesitancy today. He denies fever, chills, chest pain, palpitations, dyspnea, cough, abdominal pain, nausea vomiting diarrhea. He has no other questions or concerns at this time. No concerns per nursing. Reason For Visit: ACUTE GOUT LEFT KNEE Physical Exam Vital Signs: Temp Pulse Resp BP Pulse Ox 97.8 F 74 16 152/63 H 97 10/31/19 12:02 10/31/19 14:51 10/31/19 14:51 10/31/19 12:02 10/31/19 14:51 Intake & Output 10/30/19 10/31/19 11/01/19 06:59 06:59 06:59 Intake Total 3900 3925 410 Output Total 2425 2180 Balance 1475 1745 410 Weight 163.9 kg 168.6 kg General appearance: PRESENT: no acute distress, cooperative, morbidly obese, well-developed, well-nourished Head exam: PRESENT: atraumatic, normocephalic Eye exam: PRESENT: conjunctiva pink, EOMI, PERRLA. ABSENT: scleral icterus Mouth exam: PRESENT: moist, tongue midline Respiratory exam: PRESENT: clear to auscultation vick, symmetrical, unlabored. ABSENT: rales, rhonchi, wheezes Cardiovascular exam: PRESENT: irregular rhythm, +S1, +S2. ABSENT: diastolic murmur, rubs, systolic murmur Pulses: PRESENT: normal dorsalis pedis pul Vascular exam: PRESENT: normal capillary refill GI/Abdominal exam: PRESENT: normal bowel sounds, soft. ABSENT: distended, guarding, mass, organolmegaly, rebound, tenderness Rectal exam: PRESENT: deferred Extremities exam: PRESENT: tenderness - Left knee. ABSENT: calf tenderness, clubbing, pedal edema Neurological exam: PRESENT: alert, awake, oriented to person, oriented to place, oriented to time, oriented to situation, CN II-XII grossly intact, other - Lethargic. ABSENT: motor sensory deficit Psychiatric exam: PRESENT: appropriate affect, normal mood. ABSENT: homicidal ideation, suicidal ideation Skin exam: PRESENT: dry, warm. ABSENT: cyanosis, rash Results Laboratory Results: 10/31/19 08:00 10/31/19 08:00 10/31/19 10/31/19 08:00 08:00 WBC 10.2 RBC 4.93 Hgb 12.2 L Hct 36.7 L MCV 75 L MCH 24.8 L MCHC 33.2 RDW 18.4 H Plt Count 147 L Sodium 125.0 L Potassium 3.5 L Chloride 88 L Carbon Dioxide 24 Anion Gap 13 BUN 35 H Creatinine 1.04 Est GFR ( Amer) > 60 Glucose 225 H Calcium 7.9 L 10/30/19 04:43 Toe - Right Big Toe Gram Stain - Final 10/28/19 16:08 Blood Blood Culture (PCR) - Final Strep Agalactiae - (Group B) 10/28/19 16:08 Blood Blood Culture - Final Group B Beta Streptococcus 10/28/19 17:11 Blood Blood Culture (PCR) - Final Strep Agalactiae - (Group B) 10/28/19 17:11 Blood Blood Culture - Final Group B Beta Streptococcus 10/27/19 11:20 Knee Fluid - Left Gram Stain - Final 10/27/19 11:20 Knee Fluid - Left Body Fluid Culture - Final Group B Beta Streptococcus No Anaerobic Organisms Impressions: Knee X-Ray 10/26/19 00:00 IMPRESSION: No acute fracture or dislocation of the left knee. Moderate knee joint effusion. Severe tricompartmental osteoarthritis. Foot X-Ray 10/29/19 00:00 IMPRESSION: No interval change compared to prior. Soft tissue swelling and presumed wound of the first digit. Arthropathy copyright 2011 [employer]- All Rights Reserved Hip X-Ray 10/29/19 00:00 IMPRESSION: NEGATIVE STUDY OF THE RIGHT AND LEFT HIPS AND PELVIS. NO RADIOGRAPHIC EVIDENCE OF ACUTE INJURY. Lumbar Spine X-Ray 10/29/19 00:00 IMPRESSION: No acute findings. Assessment and Plan - Diagnosis (1) Bacteremia Is this a current diagnosis for this admission?: Yes Plan: Likely secondary to left knee septic arthritis. Blood cultures (10/24/2019; 4 of 4 bottles) positive for group B strep. Blood cultures (10/28/2019; 4 of 4 bottles) positive for group B strep. Blood culture (10/30/2019) are negative at 24 hours Patient does have a chronic diabetic foot wound. Wound culture shows gram-negative rods, gram-positive cocci clusters, group B strep. Left knee synovial fluid culture shows group B strep. Repeat left knee synovial fluid culture pending. Patient is admitted to medical floor on continuous cardiac telemetry. He is placed on IV cefepime (10/29/2019). To OR w/ Dr. Perera for arthroscope with wash out yesterday. (2) Septic arthritis Qualifiers: Septic arthritis location: knee Laterality: left Is this a current diagnosis for this admission?: Yes Plan: Synovial fluid w/ Group B strep. Blood cultures positive for Group B strep. Knee x-ray is benign. Hip x-ray benign. Underwent knee arthroscopic wash out per Dr. Perera yesterday. Continue Cefepime. Consider ID consultation. (3) Left knee pain Qualifiers: Chronicity: acute Qualified Code(s): M25.562 - Pain in left knee Is this a current diagnosis for this admission?: Yes Plan: Secondary to septic arthritis. Management as above. Analgesics as needed. (4) Diabetic foot ulcer Qualifiers: Diabetic foot ulcer location: toe Diabetes mellitus type: type 2 Laterality: right Non-pressure ulcer stage: unspecified non-pressure ulcer stage Qualified Code(s): E11.621 - Type 2 diabetes mellitus with foot ulcer; L97.519 - Non-pressure chronic ulcer of other part of right foot with unspecified severity Is this a current diagnosis for this admission?: Yes Plan: Chronic right toe diabetic foot wound. Foot x-ray not suggestive of osteomyelitis. Followed by the wound care clinic. Possible source Group B bacteremia; wound culture does show group B strep, gram- negative rods, and gram-positive cocci Wound care per clinic's recommendations. (5) Acute gout due to renal impairment involving knee Qualifiers: Laterality: left Qualified Code(s): M10.362 - Gout due to renal impairment, left knee Is this a current diagnosis for this admission?: Yes Plan: Uric acid 11.0 Continue on twice daily colchicine. (6) Anemia of renal disease Is this a current diagnosis for this admission?: Yes Plan: Stable; hemoglobin 12.2 No evidence of active bleeding at this time. Monitor daily CBC. (7) Chronic congestive heart failure Qualifiers: Heart failure type: unspecified Qualified Code(s): I50.9 - Heart failure, unspecified Is this a current diagnosis for this admission?: Yes Plan: Stable and without exacerbation at this time. Continue aspirin, atorvastatin/Zetia, home dose furosemide and metolazone. Cardiac/prerenal diet. Daily weights, strict I&O's. Dr. Sam is consulted; appreciate his assistance. (8) Chronic kidney disease (CKD) Qualifiers: Chronic kidney disease stage: unspecified stage Qualified Code(s): N18.9 - Chronic kidney disease, unspecified Is this a current diagnosis for this admission?: Yes Plan: Acute injury superimposed on chronic kidney disease has resolved. Creatinine 1.73 -> 1.16-> 1.08 Continue to encourage p.o. fluids. Avoid nephrotoxic medications as able. Have resumed home dose furosemide and metolazone; watch closely for worsening renal function. Daily chemistries. (9) Hyperlipidemia Qualifiers: Hyperlipidemia type: unspecified Qualified Code(s): E78.5 - Hyperlipidemia, unspecified Is this a current diagnosis for this admission?: Yes Plan: Cardiac diet. Continue atorvastatin and Zetia. (10) Hypertension Qualifiers: Hypertension type: essential hypertension Qualified Code(s): I10 - Essential (primary) hypertension Is this a current diagnosis for this admission?: Yes Plan: Continue home dose amlodipine, furosemide, Metolazone Cardiac diet. (11) Hyperuricemia Is this a current diagnosis for this admission?: Yes Plan: Uric acid 11.0 Twice daily colchicine. (12) Hypokalemia Is this a current diagnosis for this admission?: Yes Plan: Resolved. (13) Morbid obesity Is this a current diagnosis for this admission?: Yes Plan: BMI 41.2 Dietary discretion and lifestyle modification are encouraged. Registered dietitian and ski lift operator consulted. (14) Renal transplant recipient Is this a current diagnosis for this admission?: Yes Plan: Renal function is stable. Continue home medication regiment. (15) Unspecified atrial fibrillation Qualifiers: Atrial fibrillation type: unspecified chronic Qualified Code(s): I48.20 - Chronic atrial fibrillation, unspecified; I48.2 - Chronic atrial fibrillation Is this a current diagnosis for this admission?: Yes Plan: Noted on preop EKG. Patient is placed on telemetry. Heart rate currently acceptable without rate controlling medications. Dr. Sam is consulted; appreciate his assistance. Patient is placed on twice daily Eliquis. (16) Hyponatremia Is this a current diagnosis for this admission?: Yes Plan: Sodium is trending down; 125 today. Continue home dose furosemide and metolazone. Fluid restrict 1.5 L daily. Serum osmolality,, urine osmolality, and urine sodium pending. (17) Acute urinary retention Is this a current diagnosis for this admission?: Yes Plan: Urinalysis pending. Start Proscar, Courtney catheter - Time Time Spent with patient: 35 or more minutes Medications reviewed and adjusted accordingly: Yes Anticipated discharge: Home
[2019-10-31 17:38] LABS: APPEARANCE,URINE CLEAR; BILIRUBIN,URINE NEGATIVE (NEGATIVE); COLOR,URINE STRAW; GLUCOSE, URINE >=500 mg/dL (NEGATIVE); KETONES,URINE TRACE mg/dL (NEGATIVE); PROTEIN,URINE NEGATIVE (NEGATIVE); URINE SPECIFIC GRAVITY 1.003; UROBILINOGEN,URINE NEGATIVE mg/dL (<2.0)
--- NOTE | 2019-10-31 17:44 | PDOC PROGRESS REPORT ---
Subjective Progress Note for:: 10/31/19 Subjective:: Patient is seen and evaluated today, he is accompanied by his who is at bedside. She reports these most the been lucid today as an improvement over yesterday. He is currently sleeping with a BiPAP in place. She does report that he has moved his knee more readily without pain. Reason For Visit: ACUTE GOUT LEFT KNEE Physical Exam Vital Signs: Temp Pulse Resp BP Pulse Ox 97.6 F 78 15 152/72 H 99 10/31/19 16:54 10/31/19 16:54 10/31/19 16:54 10/31/19 16:54 10/31/19 16:54 Intake & Output 10/30/19 10/31/19 11/01/19 06:59 06:59 06:59 Intake Total 3900 3925 410 Output Total 2425 2180 Balance 1475 1745 410 Weight 163.9 kg 168.6 kg Physical Exam: Left lower extremity -Pulses 2+ distally -Compartments soft -Wound clean dry and intact no drainage, appropriate appearance for postop day 1 -Sensation grossly intact to L3-4-5 S1 -Motor grossly intact to EHL TA gastroc and quad -Moderate effusion is present Results Laboratory Results: 10/31/19 08:00 10/31/19 08:00 10/31/19 10/31/19 10/31/19 08:00 08:00 17:02 WBC 10.2 RBC 4.93 Hgb 12.2 L Hct 36.7 L MCV 75 L MCH 24.8 L MCHC 33.2 RDW 18.4 H Plt Count 147 L Sodium 125.0 L Potassium 3.5 L Chloride 88 L Carbon Dioxide 24 Anion Gap 13 BUN 35 H Creatinine 1.04 Est GFR ( Amer) > 60 Glucose 225 H Calcium 7.9 L Urine Color STRAW Urine Appearance CLEAR Urine pH 7.0 Ur Specific [place] 1.003 Urine Protein NEGATIVE Urine Glucose (UA) >=500 H Urine Ketones TRACE H Urine Blood LARGE H Urine RBC (Auto) 14 10/30/19 04:43 Toe - Right Big Toe Gram Stain - Final 10/28/19 16:08 Blood Blood Culture (PCR) - Final Strep Agalactiae - (Group B) 10/28/19 16:08 Blood Blood Culture - Final Group B Beta Streptococcus 10/28/19 17:11 Blood Blood Culture (PCR) - Final Strep Agalactiae - (Group B) 10/28/19 17:11 Blood Blood Culture - Final Group B Beta Streptococcus 10/27/19 11:20 Knee Fluid - Left Gram Stain - Final 10/27/19 11:20 Knee Fluid - Left Body Fluid Culture - Final Group B Beta Streptococcus No Anaerobic Organisms Impressions: Knee X-Ray 10/26/19 00:00 IMPRESSION: No acute fracture or dislocation of the left knee. Moderate knee joint effusion. Severe tricompartmental osteoarthritis. Foot X-Ray 10/29/19 00:00 IMPRESSION: No interval change compared to prior. Soft tissue swelling and presumed wound of the first digit. Arthropathy copyright 2010 [employer]- All Rights Reserved Hip X-Ray 10/29/19 00:00 IMPRESSION: NEGATIVE STUDY OF THE RIGHT AND LEFT HIPS AND PELVIS. NO RADIOGRAPHIC EVIDENCE OF ACUTE INJURY. Lumbar Spine X-Ray 10/29/19 00:00 IMPRESSION: No acute findings. Assessment & Plan - Diagnosis (1) Effusion, left knee Is this a current diagnosis for this admission?: Yes (2) Gout attack Qualifiers: Gout site: knee Gout etiology: idiopathic Laterality: left Qualified Code(s): M10.062 - Idiopathic gout, left knee Is this a current diagnosis for this admission?: Yes (4) Septic arthritis of knee, left Is this a current diagnosis for this admission?: Yes Plan: Suggest some form of long-term antibiotic consider a PICC line with IV antibiotics for 3 to 6 weeks. Would consider ID consult. -I will follow while in house. -Trend CRP -Weightbearing as tolerated -Continue antibiotics per medicine. - Time Time Spent with patient: Less than 15 minutes
[2019-10-31] MEDS: TAMSULOSIN HCL 0.4 MG CAP.SR.24H PO SCH (17:57)
[2019-10-31] MEDS: APIXABAN 5 MG TABLET PO SCH (17:57)
[2019-10-31] MEDS: FUROSEMIDE 40 MG TABLET PO SCH (17:58)
--- NOTE | 2019-10-31 17:58 | XCELERA REPORT ---
[address] [address] Transthoracic Echocardiogram Report Name: SHI SIDDIQI Age: 59 yrs Gender: Male : 1960 Patient Status: Inpatient Patient Location: [facility]^A Study Date: 10/31/2019 10:27 AM Height: 79 in Weight: 361 lb BSA: 2.9 m2 Reason For Study: cardiac clearance Ordering Physician: ONEIL HUGHES Performed By: Melania Carlos Interpretation Summary FINDINGS: Study was technically difficult LEFT VENTRICLE: LV Systolic function: LVEF is felt to be within normal limits. Best estimate is approximately LVEF is 60 %. LV Diastolic Function: Cannot comment on diastolic dysfunction but he suspected on basis of Atrial fibrillation and enlarged left atrium. Wall motion : Wall motion cannot be accurately commented upon. Not all wall segments were well visualized. Left ventricular chamber size : is within normal limit. Left ventricular wall thickness : is increased indicative of Mild LVH. INTERVENTRICULAR SEPTUM: no evidence of VSD noted. No asymmetric hypertrophy noted. RIGHT VENTRICLE: RV systolic function : is felt to be within normal limit. Right Ventricle Size : is within normal limits. LEFT ATRIUM size : Moderately dilated. RIGHT ATRIUM size : Not well visualized. INTER ATRIAL SEPTUM : No definite atrial septal defect noted however a small PFO could be missed. AORTIC ROOT : seems to be within normal limits. Ascending aorta is not well visualized. INFERIOR VENA CAVA: was not well visualized. VALVES: MITRAL VALVE : Leaflets are mildly thickened. Mobility seems to be within normal limits. Mitral Regurgitation : Mild mitral regurgitation is noted. Mitral Stenosis: No mitral stenosis noted. Mitral valve prolapse : none noted. AORTIC VALVE: Not well visualized but with thickening and equate excursion. Aortic stenosis : No aortic stenosis noted. Aortic regurgitation : No aortic incompetence noted. TRICUSPID VALVE : mobility and structures within normal limit. Tricuspid stenosis : no tricuspid stenosis noted. Tricuspid regurgitation : Mildicuspid regurgitation noted. Estimated RVSP : pproximately 40 mm Hg consistent with mild to moderate pulmonary hypertension. PULMONARY VALVE : was not well visualized but no significant abnormalities suspected. MASSES AND THROMBUS : No definite intracardiac thrombus or masses are noted. PERICARDIUM: No pericardial effusion was noted. IMPRESSION : 1. Normal LVEF. 2. Mild LVH noted. 3. Cannot accurately diastolic function but mild to moderate diastolic dysfunction suspected 4. Mild mitral and Johnathan tricuspid regurgitation noted. 5. Mild pulmonary hypertension noted. MMode/2D Measurements & Calculations RVDd: 2.2 cm LVIDd: 4.5 cm FS: 31.8 % Ao root diam: 3.4 cm IVSd: 1.2 cm LVIDs: 3.0 cm EDV(Teich): Ao root area: LVPWd: 1.2 cm 91.1 ml ESV(Teich): 9.3 cm2 36.4 ml LA dimension: 4.0 cm EF(Teich): 60.0 % LVLd ap4: 7.6 cm SV(MOD-sp4): EDV(MOD-sp4): 28.0 ml 49.0 ml LVLs ap4: 6.1 cm ESV(MOD-sp4): 21.0 ml EF(MOD-sp4): 57.1 % Doppler Measurements & Calculations MV E max kayli: MV P1/2t max kayli: Ao V2 max: LV V1 max P.6 cm/sec 130.9 cm/sec 127.7 cm/sec 4.3 mmHg MV A max kayli: MV P1/2t: 39.8 msec Ao max P.5 mmHgLV V1 max: 93.2 cm/sec 103.1 cm/sec MV E/A: 0.94 MVA(P1/2t): 5.5 cm2 MV dec slope: 963.8 cm/sec2 MV dec time: 0.14 sec PA V2 max: TR max kayli: MV P1/2t-pr_phl: 124.6 cm/sec 290.5 cm/sec 39.8 msec PA max PG: TR max P.8 mmHg 6.2 mmHg : ONEIL HUGHES Shyamal
[2019-10-31 18:18] LABS: OSMOLALITY,URINE 229 mOsm/kg (300-900)
[2019-10-31 18:36] LABS: URINE SODIUM 28 mmol/L (30-90)
[2019-10-31] MEDS: ATORVASTATIN CALCIUM 40 MG TABLET PO SCH (22:30)
[2019-10-31] MEDS: METOLAZONE 2.5 MG TABLET PO SCH (22:30)
[2019-10-31] MEDS: INSULIN GLARGINE,HUM.REC.ANLOG 1,000 UNIT/10 ML VIAL SUBCUT SCH (22:31)
[2019-11-01 05:08] LABS: HEMATOCRIT 39.3 % (37.9-51.0); HEMOGLOBIN 12.8 g/dL (13.5-17.0); MEAN CORPUSCULAR HEMOGLOBIN 24.1 pg (27.0-33.4); MEAN CORPUSCULAR HGB CONC 32.7 g/dL (32.0-36.0); MEAN CORPUSCULAR VOLUME 74 fl (80-97); PLATELET COUNT 192 10^3/uL (150-450); RED BLOOD COUNT 5.33 10^6/uL (4.35-5.55); RED CELL DISTRIBUTION WIDTH 18.6 % (11.5-14.0); WHITE BLOOD COUNT 11.1 10^3/uL (4.0-10.5)
[2019-11-01 05:33] LABS: ANION GAP 12 (5-19); BLOOD UREA NITROGEN 39 mg/dL (7-20); CARBON DIOXIDE 24 mmol/L (22-30); CHLORIDE 89 mmol/L (98-107); GLUCOSE 293 mg/dL (75-110); POTASSIUM 4.1 mmol/L (3.6-5.0)
[2019-11-01] MEDS: CEFEPIME HCL 2 GM in DEXTROSE 5%-WATER 50 ML IV SCH ×2 (05:40→18:29)
[2019-11-01] MEDS: CYCLOBENZAPRINE HCL 10 MG TABLET PO PRN ×2 (05:40→14:32)
[2019-11-01] MEDS: ENVARSUS 4 MG PO SCH (05:40)
[2019-11-01] MEDS: MYFORTIC 180 MG PO SCH ×2 (05:40→18:29)
[2019-11-01] MEDS: PHOSPHORUS #1 250 MG TABLET PO SCH ×4 (10:24→21:13)
[2019-11-01] MEDS: AMLODIPINE BESYLATE 5 MG TABLET PO SCH (10:25)
[2019-11-01] MEDS: POTASSIUM CHLORIDE 10 MEQ TABLET.ER PO SCH ×3 (10:25→18:29)
[2019-11-01] MEDS: FAMOTIDINE 20 MG TABLET PO SCH ×2 (10:25→21:11)
[2019-11-01] MEDS: FUROSEMIDE 80 MG TABLET PO SCH (10:25)
[2019-11-01] MEDS: EZETIMIBE 10 MG TABLET PO SCH (10:25)
[2019-11-01] MEDS: PREDNISONE 20 MG TABLET PO SCH (10:25)
[2019-11-01] MEDS: DOCUSATE SODIUM 100 MG CAPSULE PO SCH ×2 (10:25→18:30)
[2019-11-01] MEDS: FINASTERIDE 5 MG TABLET PO SCH (10:25)
[2019-11-01] MEDS: APIXABAN 5 MG TABLET PO SCH ×2 (10:25→18:30)
[2019-11-01] MEDS: INSULIN LISPRO 100 UNIT/ML 3 ML VIAL SUBCUT SCH ×4 (10:26→21:13)
[2019-11-01] MEDS: NORMAL SALINE 1000 ML 1,000 ML IV PRN (10:26)
--- NOTE | 2019-11-01 12:45 | PDOC PROGRESS REPORT ---
Subjective Progress Note for:: 11/01/19 Subjective:: Patient claims to be feeling much better. He is denying any chest pain or shortness of breath. He is concerned about ambulation. He had surgery on his left knee which is currently in wraps. We are awaiting surgical clearance to start him on chronic anticoagulation. 11/01/2019 patient was seen at lunchtime. He was noted to be sleeping soundly but easily woke up. He was noted to be alert oriented. Patient denied any chest pain and denied any shortness of breath. He remains in atrial fibrillation. Reason For Visit: ACUTE GOUT LEFT KNEE Physical Exam Vital Signs: Temp Pulse Resp BP Pulse Ox 97.5 F 73 17 157/79 H 94 11/01/19 09:51 11/01/19 09:51 11/01/19 09:51 11/01/19 09:51 11/01/19 09:51 Intake & Output 10/31/19 11/01/19 11/02/19 06:59 06:59 06:59 Intake Total 3925 1460 50 Output Total 2180 3900 Balance 1745 -2440 50 Weight 168.6 kg 168.6 kg General appearance: PRESENT: no acute distress, cooperative, morbidly obese, well-developed, well-nourished Head exam: PRESENT: atraumatic, normocephalic Eye exam: PRESENT: conjunctiva pink, EOMI, PERRLA. ABSENT: scleral icterus Ear exam: PRESENT: normal external ear exam Mouth exam: PRESENT: moist, tongue midline Neck exam: ABSENT: carotid bruit, JVD, lymphadenopathy, thyromegaly Respiratory exam: PRESENT: clear to auscultation vick. ABSENT: rales, rhonchi, wheezes Cardiovascular exam: PRESENT: irregular rhythm, +S1, +S2. ABSENT: diastolic murmur, rubs, systolic murmur Pulses: PRESENT: normal dorsalis pedis pul Vascular exam: PRESENT: normal capillary refill GI/Abdominal exam: PRESENT: normal bowel sounds, soft. ABSENT: distended, guarding, mass, organolmegaly, rebound, tenderness Rectal exam: PRESENT: deferred Extremities exam: PRESENT: full ROM, +1 edema. ABSENT: calf tenderness, clubbing, pedal edema Neurological exam: PRESENT: alert, awake, oriented to person, oriented to place, oriented to time, oriented to situation, CN II-XII grossly intact. ABSENT: motor sensory deficit Psychiatric exam: PRESENT: appropriate affect, normal mood. ABSENT: homicidal ideation, suicidal ideation Skin exam: PRESENT: dry, intact, warm. ABSENT: cyanosis, rash Results Laboratory Results: 11/01/19 04:17 11/01/19 01:41 10/31/19 10/31/19 10/31/19 08:00 17:02 17:02 WBC RBC Hgb Hct MCV MCH MCHC RDW Plt Count Sodium Potassium Chloride Carbon Dioxide Anion Gap BUN Creatinine Est GFR ( Amer) Glucose Serum Osmolality 268 L Calcium Urine Color STRAW Urine Appearance CLEAR Urine pH 7.0 Ur Specific [place] 1.003 Urine Protein NEGATIVE Urine Glucose (UA) >=500 H Urine Ketones TRACE H Urine Blood LARGE H Urine RBC (Auto) 14 Urine Osmolality 229 L 11/01/19 11/01/19 01:41 04:17 WBC 11.1 H RBC 5.33 Hgb 12.8 L Hct 39.3 MCV 74 L MCH 24.1 L MCHC 32.7 RDW 18.6 H Plt Count 192 Sodium 124.9 L Potassium 4.1 Chloride 89 L Carbon Dioxide 24 Anion Gap 12 BUN 39 H Creatinine 1.10 Est GFR ( Amer) > 60 Glucose 293 H Serum Osmolality Calcium 8.0 L Urine Color Urine Appearance Urine pH Ur Specific [place] Urine Protein Urine Glucose (UA) Urine Ketones Urine Blood Urine RBC (Auto) Urine Osmolality 10/30/19 15:48 Knee Fluid - Left Gram Stain - Final 10/30/19 15:48 Knee Fluid - Left Body Fluid Culture - Final Group B Beta Streptococcus No Anaerobic Organisms 10/30/19 04:43 Toe - Right Big Toe Gram Stain - Final 10/30/19 04:43 Toe - Right Big Toe Wound Culture - Final Alcaligenes Species Mrsa (Meth Resis Staph Aureus) Group B Beta Streptococcus 10/28/19 16:08 Blood Blood Culture (PCR) - Final Strep Agalactiae - (Group B) 10/28/19 16:08 Blood Blood Culture - Final Group B Beta Streptococcus 10/28/19 17:11 Blood Blood Culture (PCR) - Final Strep Agalactiae - (Group B) 10/28/19 17:11 Blood Blood Culture - Final Group B Beta Streptococcus 10/27/19 11:20 Knee Fluid - Left Gram Stain - Final 10/27/19 11:20 Knee Fluid - Left Body Fluid Culture - Final Group B Beta Streptococcus No Anaerobic Organisms EKG Comments: Telemetry shows atrial fibrillation. Impressions: Knee X-Ray 10/26/19 00:00 IMPRESSION: No acute fracture or dislocation of the left knee. Moderate knee joint effusion. Severe tricompartmental osteoarthritis. Foot X-Ray 10/29/19 00:00 IMPRESSION: No interval change compared to prior. Soft tissue swelling and presumed wound of the first digit. Arthropathy copyright 2011 [employer]- All Rights Reserved Hip X-Ray 10/29/19 00:00 IMPRESSION: NEGATIVE STUDY OF THE RIGHT AND LEFT HIPS AND PELVIS. NO RADIOGRAPHIC EVIDENCE OF ACUTE INJURY. Lumbar Spine X-Ray 10/29/19 00:00 IMPRESSION: No acute findings. Assessment & Plan - Diagnosis (1) Unspecified atrial fibrillation Qualifiers: Qualified Code(s): I48.20 - Chronic atrial fibrillation, unspecified; I48.2 - Chronic atrial fibrillation Is this a current diagnosis for this admission?: Yes (2) Obesity, morbid, BMI 40.0-49.9 Is this a current diagnosis for this admission?: Yes (3) Obstructive sleep apnea Is this a current diagnosis for this admission?: Yes (4) Personal history of DVT (deep vein thrombosis) Is this a current diagnosis for this admission?: Yes (5) Chronic congestive heart failure Qualifiers: Qualified Code(s): I50.9 - Heart failure, unspecified Is this a current diagnosis for this admission?: Yes (6) Chronic kidney disease (CKD) Qualifiers: Qualified Code(s): N18.9 - Chronic kidney disease, unspecified Is this a current diagnosis for this admission?: Yes - Notes Notes: Patient remained stable postop. He is noted to have atrial fibrillation which is most likely chronic. Patient has been started on Eliquis therapy which he should continue indefinitely. Patient will benefit from aggressive weight loss and regular use of CPAP. Patient can follow-up with me on discharge. - Time Time with patient: Greater than 35 minutes Medications reviewed and adjusted accordingly: Yes - Medications reviewed.
--- NOTE | 2019-11-01 12:49 | PDOC PROGRESS REPORT ---
Subjective Progress Note for:: 11/01/19 Subjective:: The patient is a 59-year-old male with a past medical history of CHF, DVT, hyperlipidemia, hypertension, PVD, tuberculosis, DM 2, diabetic polyneuropathy, obesity, CKD status post renal transplant, GERD, arthritis, and depression who was admitted 10/26/2019 with inability to bear weight secondary to left knee pain related to gout. The patient was seen on morning rounds . He was found to be sleeping soundly but woke when I said his name. He is alert and oriented x4; significantly increased alertness today. He is able to participate fully in conversation without drifting back to sleep. Patient reports decreased pain to his knee but does continue to have low back and hip pain. He again request MRI imaging. He denies fever, chills, chest pain, palpitations, dyspnea, cough, abdominal pain, nausea vomiting diarrhea. He has no other questions or concerns at this time. No concerns per nursing. Reason For Visit: ACUTE GOUT LEFT KNEE Physical Exam Vital Signs: Temp Pulse Resp BP Pulse Ox 97.5 F 73 17 157/79 H 94 11/01/19 09:51 11/01/19 09:51 11/01/19 09:51 11/01/19 09:51 11/01/19 09:51 Intake & Output 10/31/19 11/01/19 11/02/19 06:59 06:59 06:59 Intake Total 3925 1460 50 Output Total 2180 3900 Balance 1745 -2440 50 Weight 168.6 kg 168.6 kg General appearance: PRESENT: no acute distress, cooperative, morbidly obese, well-developed, well-nourished Head exam: PRESENT: atraumatic, normocephalic Eye exam: PRESENT: conjunctiva pink, EOMI, PERRLA. ABSENT: scleral icterus Mouth exam: PRESENT: moist, tongue midline Respiratory exam: PRESENT: clear to auscultation vick, symmetrical, unlabored. ABSENT: rales, rhonchi, wheezes Cardiovascular exam: PRESENT: irregular rhythm, +S1, +S2. ABSENT: diastolic murmur, rubs, systolic murmur Pulses: PRESENT: normal dorsalis pedis pul Vascular exam: PRESENT: normal capillary refill GI/Abdominal exam: PRESENT: normal bowel sounds, soft. ABSENT: distended, guarding, mass, organolmegaly, rebound, tenderness Rectal exam: PRESENT: deferred Gentrourinary exam: PRESENT: indwelling catheter Extremities exam: PRESENT: tenderness - Left knee. ABSENT: calf tenderness, clubbing, pedal edema Neurological exam: PRESENT: alert, awake, oriented to person, oriented to place, oriented to time, oriented to situation, CN II-XII grossly intact. ABSENT: motor sensory deficit Psychiatric exam: PRESENT: appropriate affect, normal mood. ABSENT: homicidal ideation, suicidal ideation Skin exam: PRESENT: dry, warm. ABSENT: cyanosis, rash Results Laboratory Results: 11/01/19 04:17 11/01/19 01:41 10/31/19 10/31/19 10/31/19 08:00 17:02 17:02 WBC RBC Hgb Hct MCV MCH MCHC RDW Plt Count Sodium Potassium Chloride Carbon Dioxide Anion Gap BUN Creatinine Est GFR ( Amer) Glucose Serum Osmolality 268 L Calcium Urine Color STRAW Urine Appearance CLEAR Urine pH 7.0 Ur Specific Zanoni 1.003 Urine Protein NEGATIVE Urine Glucose (UA) >=500 H Urine Ketones TRACE H Urine Blood LARGE H Urine RBC (Auto) 14 Urine Osmolality 229 L 11/01/19 11/01/19 01:41 04:17 WBC 11.1 H RBC 5.33 Hgb 12.8 L Hct 39.3 MCV 74 L MCH 24.1 L MCHC 32.7 RDW 18.6 H Plt Count 192 Sodium 124.9 L Potassium 4.1 Chloride 89 L Carbon Dioxide 24 Anion Gap 12 BUN 39 H Creatinine 1.10 Est GFR ( Amer) > 60 Glucose 293 H Serum Osmolality Calcium 8.0 L Urine Color Urine Appearance Urine pH Ur Specific Zanoni Urine Protein Urine Glucose (UA) Urine Ketones Urine Blood Urine RBC (Auto) Urine Osmolality 10/30/19 15:48 Knee Fluid - Left Gram Stain - Final 10/30/19 15:48 Knee Fluid - Left Body Fluid Culture - Final Group B Beta Streptococcus No Anaerobic Organisms 10/30/19 04:43 Toe - Right Big Toe Gram Stain - Final 10/30/19 04:43 Toe - Right Big Toe Wound Culture - Final Alcaligenes Species Mrsa (Meth Resis Staph Aureus) Group B Beta Streptococcus 10/28/19 16:08 Blood Blood Culture (PCR) - Final Strep Agalactiae - (Group B) 10/28/19 16:08 Blood Blood Culture - Final Group B Beta Streptococcus 10/28/19 17:11 Blood Blood Culture (PCR) - Final Strep Agalactiae - (Group B) 10/28/19 17:11 Blood Blood Culture - Final Group B Beta Streptococcus 10/27/19 11:20 Knee Fluid - Left Gram Stain - Final 10/27/19 11:20 Knee Fluid - Left Body Fluid Culture - Final Group B Beta Streptococcus No Anaerobic Organisms Impressions: Knee X-Ray 10/26/19 00:00 IMPRESSION: No acute fracture or dislocation of the left knee. Moderate knee joint effusion. Severe tricompartmental osteoarthritis. Foot X-Ray 10/29/19 00:00 IMPRESSION: No interval change compared to prior. Soft tissue swelling and presumed wound of the first digit. Arthropathy copyright 2011 [employer]- All Rights Reserved Hip X-Ray 10/29/19 00:00 IMPRESSION: NEGATIVE STUDY OF THE RIGHT AND LEFT HIPS AND PELVIS. NO RADIOGRAPHIC EVIDENCE OF ACUTE INJURY. Lumbar Spine X-Ray 10/29/19 00:00 IMPRESSION: No acute findings. Assessment and Plan - Diagnosis (1) Bacteremia Is this a current diagnosis for this admission?: Yes Plan: Likely secondary to left knee septic arthritis. Blood cultures (10/24/2019; 4 of 4 bottles) positive for group B strep. Blood cultures (10/28/2019; 4 of 4 bottles) positive for group B strep. Blood culture (10/30/2019) are negative at 48 hours Patient does have a chronic diabetic foot wound. Wound culture shows MRSA, alcaligenes, group B strep. Left knee synovial fluid culture shows group B strep. Repeat left knee synovial fluid culture positive for group B strep Patient with worsened lower back pain from baseline; lumbar MRI pending. Patient is admitted to medical floor on continuous cardiac telemetry. He is placed on IV cefepime (10/29/2019). S/p arthroscopy with wash out by Dr. Perera Infectious diseases consulted (2) Septic arthritis Qualifiers: Septic arthritis location: knee Laterality: left Is this a current diagnosis for this admission?: Yes Plan: Synovial fluid w/ Group B strep. Blood cultures positive for Group B strep. Knee x-ray is benign. Hip x-ray benign. Underwent knee arthroscopic wash out per Dr. Perera Continue Cefepime. ID consultation. (3) Left knee pain Qualifiers: Chronicity: acute Qualified Code(s): M25.562 - Pain in left knee Is this a current diagnosis for this admission?: Yes Plan: Secondary to septic arthritis. Management as above. Analgesics as needed. (4) Diabetic foot ulcer Qualifiers: Diabetic foot ulcer location: toe Diabetes mellitus type: type 2 Laterality: right Non-pressure ulcer stage: unspecified non-pressure ulcer stage Qualified Code(s): E11.621 - Type 2 diabetes mellitus with foot ulcer; L97.519 - Non-pressure chronic ulcer of other part of right foot with unspecified severity Is this a current diagnosis for this admission?: Yes Plan: Chronic right toe diabetic foot wound. Foot x-ray not suggestive of osteomyelitis. Followed by the wound care clinic. Possible source Group B bacteremia; wound culture does show group B strep, MRSA, alcaligenes Wound care per clinic's recommendations. ID consultation (5) Acute gout due to renal impairment involving knee Qualifiers: Laterality: left Qualified Code(s): M10.362 - Gout due to renal impairment, left knee Is this a current diagnosis for this admission?: Yes Plan: Uric acid 11.0 Continue on twice daily colchicine. (6) Anemia of renal disease Is this a current diagnosis for this admission?: Yes Plan: Stable; hemoglobin 12.2 No evidence of active bleeding at this time. Monitor daily CBC. (7) Chronic congestive heart failure Qualifiers: Heart failure type: unspecified Qualified Code(s): I50.9 - Heart failure, unspecified Is this a current diagnosis for this admission?: Yes Plan: Stable and without exacerbation at this time. Continue aspirin, atorvastatin/Zetia, home dose furosemide and metolazone. Cardiac/prerenal diet. Daily weights, strict I&O's. Dr. Sam is consulted; appreciate his assistance. (8) Chronic kidney disease (CKD) Qualifiers: Chronic kidney disease stage: unspecified stage Qualified Code(s): N18.9 - Chronic kidney disease, unspecified Is this a current diagnosis for this admission?: Yes Plan: Acute injury superimposed on chronic kidney disease has resolved. Creatinine 1.73 -> 1.16-> 1.08 Continue to encourage p.o. fluids. Avoid nephrotoxic medications as able. Have resumed home dose furosemide and metolazone; watch closely for worsening renal function. Daily chemistries. (9) Hyperlipidemia Qualifiers: Hyperlipidemia type: unspecified Qualified Code(s): E78.5 - Hyperlipidemia, unspecified Is this a current diagnosis for this admission?: Yes Plan: Cardiac diet. Continue atorvastatin and Zetia. (10) Hypertension Qualifiers: Hypertension type: essential hypertension Qualified Code(s): I10 - Essential (primary) hypertension Is this a current diagnosis for this admission?: Yes Plan: Continue home dose amlodipine, furosemide, Metolazone Cardiac diet. (11) Hyperuricemia Is this a current diagnosis for this admission?: Yes Plan: Uric acid 11.0 Twice daily colchicine. (12) Hypokalemia Is this a current diagnosis for this admission?: Yes Plan: Resolved. (13) Morbid obesity Is this a current diagnosis for this admission?: Yes Plan: BMI 41.2 Dietary discretion and lifestyle modification are encouraged. Registered dietitian and peer educator consulted. (14) Renal transplant recipient Is this a current diagnosis for this admission?: Yes Plan: Renal function is stable. Continue home medication regiment. (15) Unspecified atrial fibrillation Qualifiers: Atrial fibrillation type: unspecified chronic Qualified Code(s): I48.20 - Chronic atrial fibrillation, unspecified; I48.2 - Chronic atrial fibrillation Is this a current diagnosis for this admission?: Yes Plan: Noted on preop EKG. Patient is placed on telemetry. Heart rate currently acceptable without rate controlling medications. Dr. Sam is consulted; appreciate his assistance. Patient is placed on twice daily Eliquis. (16) Hyponatremia Is this a current diagnosis for this admission?: Yes Plan: Sodium is trending down; 125 today. Negative for UTI. Urine Osmo 229 Urine sodium 28 Serum sodium 124.9 Serum Osmo 268 Suggestive of hypovolemic hyponatremia. We will provide gentle IV fluids with normal saline overnight and repeat labs tomorrow. Continue home dose furosemide and metolazone. Free water fluid restrict 1.5 L daily. (17) Acute urinary retention Is this a current diagnosis for this admission?: Yes Plan: Urinalysis negative Start Proscar Continue Flomax Courtney catheter - Time Time Spent with patient: 25-34 minutes Medications reviewed and adjusted accordingly: Yes Anticipated discharge: Home with Homehealth Within: within 72 hours
--- NOTE | 2019-11-01 16:35 | RADIOLOGY REPORT (SQ) ---
EXAM DESCRIPTION: MRI LUMBAR SPINE COMBO COMPLETED DATE/TIME: 11/01/2019 3:29 pm REASON FOR STUDY: back/hip pain, bacteremia COMPARISON: 11/09/2015 TECHNIQUE: Sagittal and Axial imaging includes T1, T1 post gadolinium, T2, STIR and gradient echo se quences. Coronal T2/HASTE imaging. CONTRAST TYPE AND DOSE: 20 mL Dotarem. RENAL FUNCTION: Creatinine 1.10 LIMITATIONS: None. FINDINGS: VISUALIZED UPPER ABDOMEN: Limited evaluation. No acute or suspicious findings suggested. SEGMENTATION: No transitional anatomy. The lowest well-developed disc space is labeled L5-S1. ALIGNMENT: Straightening of the normal lumbar lordosis. VERTEBRAE: Endplate irregularity and bony edema noted L4-5 disc space. L3 Schmorl's nodes, similar t o prior exam. Chronic Modic endplate changes at L3-4 and the lower thoracic spine. No evidence jerad tional marrow replacing process. DISC SIGNAL: Multilevel disc desiccation with height loss greatest at L3-4 and L4-5. Edema centered around the L4-5 disc space. There is abnormal postcontrast enhancement at the L4-5 POSTERIOR ELEMENTS: Generally intact. No pars defect evident. HARDWARE: None in the spine. CORD AND CONUS: Normal in size. Conus medullaris terminates at L1-2. Clumping of the nerve roots at the level of L1-2 suggestive of arachnoiditis. SOFT TISSUES: No aortic aneurysm seen. No bulky retroperitoneal adenopathy or mass. No paraspinal mas s or fluid. L1-L2: Mild disc desiccation. No some height loss. No spinal canal stenosis or neural foraminal bruna rowing. L2-L3: Disc desiccation with small circumferential disc bulge. Mild canal stenosis secondary to disc and epidural fat there is mild bilateral neural foraminal narrowing. . L3-L4: Disc height loss with small posterior circumferential disc bulge which effaces the CSF column. Disc bulge and prominent epidural fat resulting in moderate canal stenosis. There is moderate bila teral neural foraminal narrowing secondary to disc and facet disease. L4-L5: There is significant disc height loss with associated edema and L4-5 endplate irregularity. P osterior disc process resulting in severe spinal canal stenosis with effacement of the CSF space, lef t greater than right. There is high-grade bilateral neural foraminal narrowing secondary to disc pro cess and facet hypertrophy, left greater than right. There is questionable posterior displacement of the epidural fat along the posterior L4 vertebral body seen on the T1 precontrast sagittal images wh ich raises question of small epidural collection/abscess. This is new since exam dated 11/09/2015 L5-S1: Broad-based disc bulge with mild canal stenosis and lateral recess narrowing. There is contac t of the traversing nerve roots, left greater than right. Severe bilateral neural foraminal narrowin g secondary to disc and facet disease. LOWER THORACIC: Spondylosis with chronic endplate change. No high-grade stenosis. SACRUM: Visualized upper sacrum intact. ENHANCEMENT: Abnormal enhancement at the level of L4-5 disc space. OTHER: Atrophic kidneys. IMPRESSION: 1. Findings highly suspicious for L4-5 discitis osteomyelitis. There is new significan t disc height loss with associated edema and L4-5 endplate irregularity. Posterior disc process/infl ammation resulting in severe spinal canal stenosis and bilateral high-grade neural foraminal narrowin g. Questionable epidural abscess/collection posterior to the L4 vertebral body with posterior displa cement of the epidural fat. Findings new since exam dated 11/09/2015. 2. Clumping of the nerve roots at the level of L2 suggestive of arachnoiditis. 3. Additional multilevel degenerative change as above suggestive of a underlying spondyloarthropathy . Findings conveyed to Sonya Doe at 11/01/2019 at 1627 hours. TECHNICAL DOCUMENTATION: JOB ID: [id number] [employer]- All Rights Reserved Reading location - IP/workstation name: [email or web address]
[2019-11-01 17:21] LABS: ANION GAP 12 (5-19); BLOOD UREA NITROGEN 41 mg/dL (7-20); CALCIUM 7.7 mg/dL (8.4-10.2); CARBON DIOXIDE 23 mmol/L (22-30); CHLORIDE 87 mmol/L (98-107); POTASSIUM 4.3 mmol/L (3.6-5.0)
[2019-11-01 17:32] LABS: GLUCOSE 418 mg/dL (75-110)
[2019-11-01] MEDS: TAMSULOSIN HCL 0.4 MG CAP.SR.24H PO SCH (18:29)
[2019-11-01] MEDS: FUROSEMIDE 40 MG TABLET PO SCH (18:30)
--- NOTE | 2019-11-01 18:43 | PDOC TRANSFER SUMMARY ---
General Admission Date/PCP: 10/26/19 21:53 KORINA RDZ MD Admission Date: 10/26/19 Accepting Facility: [facility] Accepting Physician: Dr. Mccartney Resuscitation Status: Full Code - Transfer Diagnosis (1) Bacteremia Is this a current diagnosis for this admission?: Yes Diagnosis Summary: Blood cultures (10/24/2019; 4 of 4 bottles) positive for group B strep. Blood cultures (10/28/2019; 4 of 4 bottles) positive for group B strep. Blood culture (10/30/2019) are negative at 48 hours Patient does have a chronic diabetic foot wound. Wound culture shows MRSA, alcaligenes, group B strep. Left knee synovial fluid culture shows group B strep. Repeat left knee synovial fluid culture positive for group B strep Patient with worsened lower back pain from baseline; lumbar MRI L4/L5 osteomyelitis and discitis with severe spinal stenosis and possible epidural abscess. He was placed on IV cefepime (10/29/2019). S/p arthroscopy with wash out by Dr. Perera (2) Septic arthritis Is this a current diagnosis for this admission?: Yes Diagnosis Summary: Synovial fluid w/ Group B strep. Blood cultures positive for Group B strep. Underwent knee arthroscopic wash out per Dr. Perera on 10/30/19. Continue Cefepime. (3) Left knee pain Is this a current diagnosis for this admission?: Yes Diagnosis Summary: Secondary to septic arthritis. Management as above. Analgesics as needed. (4) Diabetic foot ulcer Is this a current diagnosis for this admission?: Yes Diagnosis Summary: Chronic right toe diabetic foot wound. Foot x-ray not suggestive of osteomyelitis. Followed by the wound care clinic. Possible source Group B bacteremia; wound culture does show group B strep, MRSA, alcaligenes (5) Acute gout due to renal impairment involving knee Is this a current diagnosis for this admission?: Yes Diagnosis Summary: Ruled out; patient w/ septic arthritis. Uric acid 11.0; likely secondary to CKD. Received colchicine and p.o. prednisone. (6) Anemia of renal disease Is this a current diagnosis for this admission?: Yes Diagnosis Summary: Stable; hemoglobin 12.8 No evidence of active bleeding at this time. (7) Chronic congestive heart failure Is this a current diagnosis for this admission?: Yes Diagnosis Summary: Stable and without exacerbation at this time. Echocardiogram (10/31/2019) shows LVEF 60%. Unable to determine LV diastolic function secondary to atrial fibrillation. He does have mild LVH. RVSP approximately 40 mmHg. Study was limited secondary to body habitus and positioning; technically difficult. Continue aspirin, atorvastatin/Zetia, home dose furosemide and metolazone. (8) Chronic kidney disease (CKD) Is this a current diagnosis for this admission?: Yes Diagnosis Summary: Acute injury superimposed on chronic kidney disease has resolved. Creatinine 1.73 -> 1.16-> 1.08 Continue to encourage p.o. fluids. Avoid nephrotoxic medications as able. Have resumed home dose furosemide and metolazone (9) Hyperlipidemia Is this a current diagnosis for this admission?: Yes Diagnosis Summary: Cardiac diet. Continue atorvastatin and Zetia. (10) Hypertension Is this a current diagnosis for this admission?: Yes Diagnosis Summary: Mildly elevated. Continue home dose amlodipine, furosemide, Metolazone Cardiac diet. (11) Hyperuricemia Is this a current diagnosis for this admission?: Yes Diagnosis Summary: Uric acid 11.0. Received colchicine. (12) Hypokalemia Is this a current diagnosis for this admission?: Yes Diagnosis Summary: Replete (13) Morbid obesity Is this a current diagnosis for this admission?: Yes Diagnosis Summary: BMI 42.4 Dietary discretion and lifestyle modification are encouraged. Registered dietitian and dynamic balancer were consulted. (14) Renal transplant recipient Is this a current diagnosis for this admission?: Yes Diagnosis Summary: Renal function is stable. Continue home medication regiment. Patient's renal transplant team is located at [facility]. (15) Unspecified atrial fibrillation Is this a current diagnosis for this admission?: Yes Diagnosis Summary: Noted on preop EKG. Heart rate currently acceptable without rate controlling medications. Have started renally dosed Eliquis. (16) Hyponatremia Is this a current diagnosis for this admission?: Yes Diagnosis Summary: Sodium is trending down; 125 today. Negative for UTI. Urine Osmo 229 Urine sodium 28 Serum sodium 124.9 Serum Osmo 268 Suggestive of hypovolemic hyponatremia with pseudohyponatremia related to hyperglycemia. Have started gentle IV fluids with normal saline; will plan to repeat labs tomorrow. (17) Acute urinary retention Is this a current diagnosis for this admission?: Yes Diagnosis Summary: Urinalysis negative Start Proscar Continue Flomax Courtney catheter Development of bilateral hip pain, increased bilateral pedal paresthesia, and urinary retention prompted lumbar MRI. See below. (18) Osteomyelitis of lumbar spine Is this a current diagnosis for this admission?: Yes Diagnosis Summary: Lumbar MRI (11/01/2019) demonstrated findings highly suspicious for L4-5 discitis osteomyelitis, severe spinal canal stenosis, bilateral high-grade neural foraminal narrowing, and a questionable epidural abscess/collection posterior to the L4 vertebral body with posterior displacement. Patient is bacteremic with group B strep. He continues on IV Ancef. Have discussed with neurosurgery at [facility] and the hospitalist service who have graciously agreed to accept the patient into their care. Awaiting bed offer. (19) Discitis of lumbar region Is this a current diagnosis for this admission?: Yes Diagnosis Summary: As above. (20) Abscess in epidural space of lumbar spine Is this a current diagnosis for this admission?: Yes Diagnosis Summary: As above. - Transfer Medications Home Medications: Aspirin [Ecotrin] 81 mg PO DAILY 12/23/16 Famotidine 20 mg PO BID 12/23/16 Furosemide [Lasix] 40 mg PO QPM 12/23/16 Furosemide [Lasix] 80 mg PO QAM 12/23/16 Insulin Aspart [Novolog Flexpen] 0 unit SQ .SLIDING SCALE 12/23/16 Insulin Detemir [Levemir Flextouch] 50 unit SQ QHS 12/23/16 Mycophenolate Sodium [Myfortic 180 mg Tablet.dr] 360 mg PO BID 12/23/16 Prednisone 5 mg PO DAILY 12/23/16 Tacrolimus [Envarsus Xr] 16 mg PO QAM 12/23/16 Tamsulosin HCl 0.4 mg PO DAILY 12/23/16 Rosuvastatin Calcium 5 mg PO QHS 07/02/18 Amlodipine Besylate [Norvasc 5 mg Tablet] 5 mg PO DAILY 10/27/19 Docusate Sodium [Colace 100 mg Capsule] 100 mg PO BID 10/27/19 Ezetimibe [Zetia 10 mg Tablet] 10 mg PO DAILY 10/27/19 Gabapentin [Neurontin 300 mg Capsule] 300 mg PO Q8 10/27/19 Levalbuterol Tartrate [Xopenex Hfa] 2 puff IH DAILYP PRN 10/27/19 Metolazone [Zaroxolyn 2.5 Mg Tablet] 2.5 mg PO QHS 10/27/19 Transfer Medications: Current Medications Acetaminophen (Tylenol 325 Mg Tablet) 650 mg PO Q4HP PRN PRN Reason: For headache, pain or fever Stop: 11/26/19 00:33 Last Admin: 10/27/19 20:15 Dose: 650 mg Documented by: Al Hydrox/Mg Hydrox/Simethicone (Maalox Plus Susp 30 Udcup) 30 ml PO Q6HP PRN PRN Reason: HEARTBURN Stop: 11/26/19 00:24 Amlodipine Besylate (Norvasc 5 Mg Tablet) 5 mg PO DAILY [facility] Stop: 11/29/19 09:59 Last Admin: 11/01/19 10:25 Dose: 5 mg Documented by: Apixaban (Eliquis 5 Mg Tablet) 5 mg PO BID [facility] Stop: 11/30/19 17:59 Last Admin: 11/01/19 10:25 Dose: 5 mg Documented by: Atorvastatin Calcium (Lipitor 40 Mg Tablet) 40 mg PO QHS [facility] Stop: 11/30/19 21:59 Last Admin: 10/31/19 22:30 Dose: 40 mg Documented by: Cyclobenzaprine HCl (Flexeril 10 Mg Tablet) 10 mg PO Q8HP PRN PRN Reason: MUSCLE SPASMS Stop: 11/26/19 14:06 Last Admin: 11/01/19 14:32 Dose: 10 mg Documented by: Dextrose (Dextrose Inj 50% Syringe (25 Gm/50 Ml)) 12.5 gm IV PRN PRN; Protocol PRN Reason: FOR BG 50-69 IN ALERT PATIENT Stop: 11/25/19 22:30 Dextrose (Dextrose Inj 50% Syringe (25 Gm/50 Ml)) 25 gm IV PRN PRN; Protocol PRN Reason: PER PROTOCOL Stop: 11/25/19 22:30 Docusate Sodium (Colace 100 Mg Capsule) 100 mg PO BID [facility] Stop: 11/27/19 09:59 Last Admin: 11/01/19 10:25 Dose: 100 mg Documented by: Ezetimibe (Zetia 10 Mg Tablet) 10 mg PO DAILY [facility] Stop: 11/27/19 09:59 Last Admin: 11/01/19 10:25 Dose: 10 mg Documented by: Famotidine (Pepcid 20 Mg Tablet) 20 mg PO Q12 [facility] Stop: 11/26/19 21:59 Last Admin: 11/01/19 10:25 Dose: 20 mg Documented by: Finasteride (Proscar 5 Mg Tablet) 5 mg PO DAILY [facility] Stop: 12/01/19 09:59 Last Admin: 11/01/19 10:25 Dose: 5 mg Documented by: Furosemide (Lasix 80 Mg Tablet) 80 mg PO DAILY [facility] Stop: 11/27/19 09:59 Last Admin: 11/01/19 10:25 Dose: 80 mg Documented by: Furosemide (Lasix 40 Mg Tablet) 40 mg PO QPM [facility] Stop: 11/28/19 17:59 Last Admin: 10/31/19 17:58 Dose: 40 mg Documented by: Glucagon (Glucagen Inj 1 Mg Vial) 1 mg IM PRN PRN; Protocol PRN Reason: Evaluate for BG < 70 Stop: 11/25/19 22:30 Glucose (Glutose 40% Gel 15 Gm Tube) 30 gm PO PRN PRN; Protocol PRN Reason: FOR BG < 50 IN ALERT PATIENT Stop: 11/25/19 22:30 Glucose (Glutose 40% Gel 15 Gm Tube) 15 gm PO PRN PRN; Protocol PRN Reason: FOR BG 50-69 IN ALERT PATIENT Stop: 11/25/19 22:30 Cefepime HCl 2 gm/ Dextrose 50 mls @ 100 mls/hr IV Q12A [facility] Stop: 11/05/19 17:59 Last Infusion: 11/01/19 10:39 Dose: Infused Documented by: Sodium Chloride (Nacl 0.9% 1000 Ml Iv Soln) 1,000 mls @ 125 mls/hr IV CONTINUOUS PRN PRN Reason: THIS MED IS NOT "PRN" Stop: 12/01/19 08:22 Last Admin: 11/01/19 10:26 Dose: 125 mls/hr Documented by: Insulin Glargine (Lantus Insulin 100 Unit/1 Ml 10 Ml) 58 unit SUBCUT QHS [facility] Stop: 12/01/19 21:59 Insulin Human Lispro (Humalog Insulin 100 Unit/1 Ml 3 Ml Vial) 0 - 12 unit SUBCUT ACHS [facility]; Protocol Stop: 11/26/19 07:59 Last Admin: 11/01/19 13:42 Dose: 6 unit Documented by: Levalbuterol HCl (Xopenex Neb 1.25 Mg/3 Ml Ampul) 1.25 mg NEB RTQ4HP PRN PRN Reason: SHORTNESS OF BREATH Stop: 11/26/19 14:06 Last Admin: 10/29/19 11:46 Dose: 1.25 mg Documented by: Magnesium Hydroxide (Milk Of Magnesia 30 Ml Udcup) 30 ml PO HSP PRN PRN Reason: FOR CONSTIPATION Stop: 11/26/19 00:24 Metolazone (Zaroxolyn 2.5 Mg Tablet) 2.5 mg PO QHS [facility] Stop: 11/28/19 21:59 Last Admin: 10/31/19 22:30 Dose: 2.5 mg Documented by: Ondansetron HCl (Zofran Inj/Pf 4 Mg/2 Ml Sdv) 4 mg IV Q4HP PRN PRN Reason: FOR NAUSEA/VOMITING Stop: 11/26/19 00:24 Oxycodone/Acetaminophen (Percocet 5-325 Mg Tablet) 1 tab PO Q4HP PRN PRN Reason: FOR PAIN Stop: 11/05/19 16:22 Last Admin: 10/29/19 18:17 Dose: 1 tab Documented by: Envarsus (Tacrolimus () Xr 4mg Tablets) 1 dose PO Q6AM [facility] Stop: 11/27/19 05:59 Last Admin: 11/01/19 05:40 Dose: 4 tab Documented by: Myfortic ( Mycophenolate) Dr 180mg Tablet 1 dose PO Q12A [facility] Stop: 11/26/19 21:59 Last Admin: 11/01/19 05:40 Dose: 1 dose Documented by: Potassium Chloride (Klor-Con 10 Meq Tablet Er) 20 meq PO MEALS [facility] Stop: 11/26/19 07:59 Last Admin: 11/01/19 13:43 Dose: 20 meq Documented by: Potassium Phosphate (K-Phos Neutral 250 Mg Tablet) 500 mg PO ACHS JIMMY Stop: 11/27/19 21:59 Last Admin: 11/01/19 13:43 Dose: 500 mg Documented by: Prednisone (Deltasone 20 Mg Tablet) 60 mg PO DAILY [facility] Stop: 11/28/19 17:59 Last Admin: 11/01/19 10:25 Dose: 60 mg Documented by: Sodium Chloride (Saline Flush 2.5 Ml Monoject Prefil Syrin) 2.5 ml IV Q8 JIMMY Stop: 11/26/19 05:59 Last Admin: 11/01/19 13:43 Dose: Not Given Documented by: Tamsulosin HCl (Flomax 0.4 Mg Cap.Sr) 0.4 mg PO PCSUPPER JIMMY Stop: 11/27/19 17:59 Last Admin: 10/31/19 17:57 Dose: 0.4 mg Documented by: Tramadol HCl (Ultram 50 Mg Tablet) 50 mg PO Q4HP PRN PRN Reason: FOR PAIN SCALE 3-5 Stop: 11/03/19 14:05 Last Admin: 10/27/19 17:12 Dose: 50 mg Documented by: - Allergies Allergies/Adverse Reactions: rivaroxaban [From Xarelto] Allergy (Severe, Verified 10/26/19 12:47) HEMORRHAGING ibuprofen Allergy (Mild, Verified 10/26/19 12:47) because of kidneys iodine [Iodine] Allergy (Mild, Verified 10/26/19 12:47) Hives ketorolac tromethamine [From Toradol] Adverse Reaction (Severe, Verified 10/26/19 12:47) Vomiting warfarin sodium [From Coumadin] Adverse Reaction (Severe, Verified 10/26/19 12:47) weakness enoxaparin sodium [From Lovenox] Adverse Reaction (Intermediate, Verified 10/26/19 12:47) falls promethazine HCl [From Phenergan] Adverse Reaction (Unknown, Verified 10/26/19 12:47) Vomiting gabapentin Adverse Reaction (Verified 10/26/19 12:47) chlorohexidine Allergy (Mild, Uncoded 10/26/19 12:47) Hives - Diet/Activity Discharge Diet: Diabetic, Other (Comments) - Prerenal Discharge Activity: Bedrest Hospital Course Hospital Course: H&P per Dr. Allan: SHI SIDDIQI is a 59 year old male who presented to the emergency room with a 2-day history of left knee pain. He admits the gradual onset and worsening of a constant pressure pain, which is now become severe, in his left knee without radiation. The left knee pain is worsened by movement or attempts at weightbearing and is accompanied by gradually increasing redness and swelling with warmth to touch of the left knee. The left knee pain is associated with a recent vein stripping procedure performed on his left leg and chronic back pain with radiation into his left hip which was recently evaluated by an orthopedic surgeon. He contacted his primary care physician, today, who recommended he come to the emergency room to be evaluated for DVT. In the emergency room he was found to have typical acute gout affecting his left knee with a left knee effusion. Patient was in extreme pain and unable to bear weight to ambulate on his left lower extremity even with the use of a walker. He was subsequently admitted to hospital for further evaluation treatment. Course: as above Physical Exam Vital Signs: Temp Pulse Resp BP Pulse Ox 97.5 F 73 17 157/79 H 94 11/01/19 09:51 11/01/19 09:51 11/01/19 09:51 11/01/19 09:51 11/01/19 09:51 Intake & Output 10/31/19 11/01/19 11/02/19 06:59 06:59 06:59 Intake Total 3925 1460 530 Output Total 2180 3900 2000 Balance 4225 -1010 -1470 Weight 168.6 kg 168.6 kg General appearance: PRESENT: no acute distress, cooperative, morbidly obese, well-developed, well-nourished Head exam: PRESENT: atraumatic, normocephalic Eye exam: PRESENT: conjunctiva pink, EOMI, PERRLA. ABSENT: scleral icterus Mouth exam: PRESENT: moist, tongue midline Respiratory exam: PRESENT: clear to auscultation vick, symmetrical, unlabored, other - room air; CPAP nightly. ABSENT: rales, rhonchi, wheezes Cardiovascular exam: PRESENT: irregular rhythm, +S1, +S2. ABSENT: diastolic murmur, rubs, systolic murmur Pulses: PRESENT: normal dorsalis pedis pul Vascular exam: PRESENT: normal capillary refill GI/Abdominal exam: PRESENT: normal bowel sounds, soft. ABSENT: distended, guarding, mass, organolmegaly, rebound, tenderness Rectal exam: PRESENT: deferred Gentrourinary exam: PRESENT: indwelling catheter Extremities exam: PRESENT: joint swelling - left knee, tenderness - left knee, bilateral hips. ABSENT: calf tenderness, clubbing, pedal edema Musculoskeletal exam: PRESENT: tenderness - low back Neurological exam: PRESENT: alert, awake, oriented to person, oriented to place, oriented to time, oriented to situation, CN II-XII grossly intact. ABSENT: motor sensory deficit Psychiatric exam: PRESENT: appropriate affect, normal mood. ABSENT: homicidal ideation, suicidal ideation Skin exam: PRESENT: dry, warm. ABSENT: cyanosis, rash Results Laboratory Results: 11/01/19 04:17 11/01/19 16:53 10/31/19 10/31/19 11/01/19 08:00 17:02 01:41 WBC RBC Hgb Hct MCV MCH MCHC RDW Plt Count Sodium 124.9 L Potassium 4.1 Chloride 89 L Carbon Dioxide 24 Anion Gap 12 BUN 39 H Creatinine 1.10 Est GFR ( Amer) > 60 Glucose 293 H Serum Osmolality 268 L Calcium 8.0 L Urine Osmolality 229 L 11/01/19 11/01/19 04:17 16:53 WBC 11.1 H RBC 5.33 Hgb 12.8 L Hct 39.3 MCV 74 L MCH 24.1 L MCHC 32.7 RDW 18.6 H Plt Count 192 Sodium 121.6 L Potassium 4.3 Chloride 87 L Carbon Dioxide 23 Anion Gap 12 BUN 41 H Creatinine 0.97 Est GFR ( Amer) > 60 Glucose 418 H* Serum Osmolality Calcium 7.7 L Urine Osmolality 10/30/19 15:48 Knee Fluid - Left Gram Stain - Final 10/30/19 15:48 Knee Fluid - Left Body Fluid Culture - Final Group B Beta Streptococcus No Anaerobic Organisms 10/30/19 04:43 Toe - Right Big Toe Gram Stain - Final 10/30/19 04:43 Toe - Right Big Toe Wound Culture - Final Alcaligenes Species Mrsa (Meth Resis Staph Aureus) Group B Beta Streptococcus Impressions: Knee X-Ray 10/26/19 00:00 IMPRESSION: No acute fracture or dislocation of the left knee. Moderate knee joint effusion. Severe tricompartmental osteoarthritis. Foot X-Ray 10/29/19 00:00 IMPRESSION: No interval change compared to prior. Soft tissue swelling and presumed wound of the first digit. Arthropathy copyright 2011 [employer]- All Rights Reserved Hip X-Ray 10/29/19 00:00 IMPRESSION: NEGATIVE STUDY OF THE RIGHT AND LEFT HIPS AND PELVIS. NO RADIOGRAPHIC EVIDENCE OF ACUTE INJURY. Lumbar Spine X-Ray 10/29/19 00:00 IMPRESSION: No acute findings. Lumbar Spine MRI 11/01/19 00:00 IMPRESSION: 1. Findings highly suspicious for L4-5 discitis osteomyelitis. Th ere is new significant disc height loss with associated edema and L4-5 endplate irregularity. Posterior disc process/inflammation resulting in severe spinal canal stenosis and bilateral high-grade neural foraminal narrowing. Questionable epidural abscess/collection posterior to the L4 vertebral body with posterior displacement of the epidural fat. Findings new since exam dated 11/09/2015. 2. Clumping of the nerve roots at the level of L2 suggestive of arachnoiditis. 3. Additional multilevel degenerative change as above suggestive of a underlying spondyloarthropathy. Findings conveyed to Sonya Doe at 11/01/2019 at 1627 hours. Plan Discharge Plan: Transfer to [facility] into the care of Dr. Mccartney, hospitalist, with Dr. Thompson, neurosurgery consulting. Time Spent: Greater than 30 Minutes
[2019-11-01] MEDS ORDERED: INSULIN LISPRO 100 UNIT/ML 3 ML VIAL SUBCUT ONE (19:30)
[2019-11-01] MEDS: METOLAZONE 2.5 MG TABLET PO SCH (21:11)
[2019-11-01] MEDS: ATORVASTATIN CALCIUM 40 MG TABLET PO SCH (21:11)
[2019-11-01] MEDS: INSULIN GLARGINE,HUM.REC.ANLOG 1,000 UNIT/10 ML VIAL SUBCUT SCH (21:12)
[2019-11-02 05:42] LABS: ANION GAP 10 (5-19); BLOOD UREA NITROGEN 39 mg/dL (7-20); C-REACTIVE PROTEIN 83.4 mg/L (<10.0); CALCIUM 7.9 mg/dL (8.4-10.2); CARBON DIOXIDE 27 mmol/L (22-30); CHLORIDE 88 mmol/L (98-107); GLUCOSE 296 mg/dL (75-110); POTASSIUM 3.9 mmol/L (3.6-5.0)
[2019-11-02] MEDS: CEFEPIME HCL 2 GM in DEXTROSE 5%-WATER 50 ML IV SCH ×2 (06:04→18:33)
[2019-11-02] MEDS: MYFORTIC 180 MG PO SCH ×2 (06:05→18:33)
[2019-11-02] MEDS: ENVARSUS 4 MG PO SCH (06:05)
--- NOTE | 2019-11-02 08:03 | Progress Note ---
Provider Note Provider Note: [facility] Telephone Advice Consultation Chart reviewed and discussed with team. Patient is a 59-year-old man with m ultiple comorbid conditionas including DM, CKD s/p transplant, hypertension, DVT, PVD, obesity, who was admitted to the hospital after presenting worsening left knee pain. He was found bacteremic with GBS. He had left septic knee and a recent MRI of the lumbar spine demonstrated L4-L5 discitis, vertebral osteomyelitis and suspected epidural abscess. Patient had a TTE on 10/31 that didn't comment on vegetations, although it was technically difficult. Repeat blood cultures from 10/30 were negative. Patient has been on cefepime. Primary team discussed the case with neurosurgery and he was accepted by hospitalist and neurosurgery for further management of epidural abscess. ID team can be consulted at [facility] for further recommendations and follow up. Dori Azar MD [facility] [phone]
[2019-11-02] MEDS: INSULIN LISPRO 100 UNIT/ML 3 ML VIAL SUBCUT SCH ×4 (08:17→21:17)
[2019-11-02] MEDS: POTASSIUM CHLORIDE 10 MEQ TABLET.ER PO SCH ×3 (08:18→18:33)
[2019-11-02] MEDS: PHOSPHORUS #1 250 MG TABLET PO SCH ×4 (08:19→21:16)
[2019-11-02] MEDS: APIXABAN 5 MG TABLET PO SCH ×2 (09:26→18:33)
[2019-11-02] MEDS: AMLODIPINE BESYLATE 5 MG TABLET PO SCH (09:26)
[2019-11-02] MEDS: EZETIMIBE 10 MG TABLET PO SCH (09:26)
[2019-11-02] MEDS: DOCUSATE SODIUM 100 MG CAPSULE PO SCH ×2 (09:26→18:33)
[2019-11-02] MEDS: OXYCODONE-ACETAMINOPHEN 5-325 MG TABLET PO PRN ×2 (09:26→20:08)
[2019-11-02] MEDS: FUROSEMIDE 80 MG TABLET PO SCH (09:26)
[2019-11-02] MEDS: FAMOTIDINE 20 MG TABLET PO SCH ×2 (09:26→21:16)
[2019-11-02] MEDS: FINASTERIDE 5 MG TABLET PO SCH (09:26)
[2019-11-02] MEDS: NORMAL SALINE 1000 ML 1,000 ML IV PRN ×2 (09:27→19:57)
--- NOTE | 2019-11-02 12:31 | PDOC PROGRESS REPORT ---
Subjective Progress Note for:: 11/02/19 Subjective:: The patient is a 59-year-old male with a past medical history of CHF, DVT, hyperlipidemia, hypertension, PVD, tuberculosis, DM 2, diabetic polyneuropathy, obesity, CKD status post renal transplant, GERD, arthritis, and depression who was admitted 10/26/2019 with inability to bear weight secondary to left knee pain related to presumed gout and found to have septic arthritis, bacteremia, and lumbar osteomyelitis/discitis.. The patient was seen on morning rounds. He is alert and oriented x4; improved alertness today. He is able to participate fully in conversation without drifting back to sleep. Patient reports decreased pain to his knee but does continue to have low back and hip pain, though adequately controlled with p.o. percocet. He denies fever, chills, chest pain, palpitations, dyspnea, cough, abdominal pain, nausea vomiting diarrhea. He has no other questions or concerns at this time. No concerns per nursing. Reason For Visit: ACUTE GOUT LEFT KNEE Physical Exam Vital Signs: Temp Pulse Resp BP Pulse Ox 97.2 F 73 16 143/60 H 99 11/02/19 11:35 11/02/19 11:35 11/02/19 11:35 11/02/19 11:35 11/02/19 11:35 Intake & Output 11/01/19 11/02/19 11/03/19 06:59 06:59 06:59 Intake Total 1460 1630 240 Output Total 3900 6275 1800 Balance -2440 -4645 -1560 Weight 168.6 kg 168.6 kg General appearance: PRESENT: no acute distress, cooperative, morbidly obese, well-developed, well-nourished Head exam: PRESENT: atraumatic, normocephalic Eye exam: PRESENT: conjunctiva pink, EOMI, PERRLA. ABSENT: scleral icterus Mouth exam: PRESENT: moist, tongue midline Respiratory exam: PRESENT: clear to auscultation vick, decreased breath sounds, symmetrical, unlabored. ABSENT: rales, rhonchi, wheezes Cardiovascular exam: PRESENT: irregular rhythm, +S1, +S2. ABSENT: diastolic murmur, rubs, systolic murmur Pulses: PRESENT: normal dorsalis pedis pul Vascular exam: PRESENT: normal capillary refill Gentrourinary exam: PRESENT: indwelling catheter Extremities exam: PRESENT: tenderness - left knee. ABSENT: calf tenderness, clubbing, pedal edema Musculoskeletal exam: PRESENT: tenderness - lower back and bilateral hips Neurological exam: PRESENT: alert, awake, oriented to person, oriented to place, oriented to time, oriented to situation, CN II-XII grossly intact. ABSENT: motor sensory deficit Psychiatric exam: PRESENT: appropriate affect, normal mood. ABSENT: homicidal ideation, suicidal ideation Skin exam: PRESENT: dry, intact, warm. ABSENT: cyanosis, rash Results Laboratory Results: 11/01/19 04:17 11/02/19 04:35 11/01/19 11/02/19 16:53 04:35 Sodium 121.6 L 124.6 L Potassium 4.3 3.9 Chloride 87 L 88 L Carbon Dioxide 23 27 Anion Gap 12 10 BUN 41 H 39 H Creatinine 0.97 1.12 Est GFR ( Amer) > 60 > 60 Glucose 418 H* 296 H Calcium 7.7 L 7.9 L C-Reactive Protein 83.4 H 10/30/19 15:48 Knee Fluid - Left Gram Stain - Final 10/30/19 15:48 Knee Fluid - Left Body Fluid Culture - Final Group B Beta Streptococcus No Anaerobic Organisms 10/30/19 04:43 Toe - Right Big Toe Gram Stain - Final 10/30/19 04:43 Toe - Right Big Toe Wound Culture - Final Alcaligenes Species Mrsa (Meth Resis Staph Aureus) Group B Beta Streptococcus Impressions: Knee X-Ray 10/26/19 00:00 IMPRESSION: No acute fracture or dislocation of the left knee. Moderate knee joint effusion. Severe tricompartmental osteoarthritis. Foot X-Ray 10/29/19 00:00 IMPRESSION: No interval change compared to prior. Soft tissue swelling and presumed wound of the first digit. Arthropathy copyright 2011 [employer]- All Rights Reserved Hip X-Ray 10/29/19 00:00 IMPRESSION: NEGATIVE STUDY OF THE RIGHT AND LEFT HIPS AND PELVIS. NO RADIOGRAPHIC EVIDENCE OF ACUTE INJURY. Lumbar Spine X-Ray 10/29/19 00:00 IMPRESSION: No acute findings. Lumbar Spine MRI 11/01/19 00:00 IMPRESSION: 1. Findings highly suspicious for L4-5 discitis osteomyelitis. There is new significant disc height loss with associated edema and L4-5 endplate irregularity. Posterior disc process/inflammation resulting in severe spinal canal stenosis and bilateral high-grade neural foraminal narrowing. Questionable epidural abscess/collection posterior to the L4 vertebral body with posterior displacement of the epidural fat. Findings new since exam dated 11/09/2015. 2. Clumping of the nerve roots at the level of L2 suggestive of arachnoiditis. 3. Additional multilevel degenerative change as above suggestive of a underlying spondyloarthropathy. Findings conveyed to Sonya Doe at 11/01/2019 at 1627 hours. Assessment and Plan - Diagnosis (1) Osteomyelitis of lumbar spine Is this a current diagnosis for this admission?: Yes Plan: Lumbar MRI (11/01/2019) demonstrated findings highly suspicious for L4-5 discitis osteomyelitis, severe spinal canal stenosis, bilateral high-grade neural foraminal narrowing, and a questionable epidural abscess/collection posterior to the L4 vertebral body with posterior displacement. Patient is bacteremic with group B strep. He continues on IV Ancef. Have discussed with neurosurgery at [facility] and the hospitalist [facility] who have graciously agreed to accept the patient into their care. Awaiting bed offer. (2) Bacteremia Is this a current diagnosis for this admission?: Yes Plan: Likely secondary to left knee septic arthritis. Now found to have lumbar spine osteomyelitis/discitis Blood cultures (10/24/2019; 4 of 4 bottles) positive for group B strep. Blood cultures (10/28/2019; 4 of 4 bottles) positive for group B strep. Blood culture (10/30/2019) are negative at 72 hours Patient does have a chronic diabetic foot wound. Wound culture shows MRSA, alcaligenes, group B strep. Left knee synovial fluid culture shows group B strep. Repeat left knee synovial fluid culture positive for group B strep Patient with worsened lower back pain from baseline; lumbar MRI L4/L5 osteomyelitis and discitis with severe spinal stenosis and possible epidural abscess. Patient is admitted to medical floor on continuous cardiac telemetry. He is placed on IV cefepime (10/29/2019). S/p left knee arthroscopy with wash out by Dr. Perera Infectious diseases consulted Patient has been accepted [place] [facility] [place]; awaiting [place] assignment (3) Septic arthritis Qualifiers: Septic arthritis location: knee Laterality: left Is this a current diagnosis for this admission?: Yes Plan: Synovial fluid w/ Group B strep. Blood cultures positive for Group B strep. Knee x-ray is benign. Hip x-ray benign. Underwent knee arthroscopic wash out per Dr. Perera Continue Cefepime. ID consultation. (4) Left knee pain Qualifiers: Chronicity: acute Qualified Code(s): M25.562 - Pain in left knee Is this a current diagnosis for this admission?: Yes Plan: Secondary to septic arthritis. Management as above. Analgesics as needed. (5) Diabetic foot ulcer Qualifiers: Diabetic foot ulcer location: toe Diabetes mellitus type: type 2 Laterality: right Non-pressure ulcer stage: unspecified non-pressure ulcer st age Qualified Code(s): E11.621 - Type 2 diabetes mellitus with foot ulcer; L97.519 - Non-pressure chronic ulcer of other part of right foot with unspecified severity Is this a current diagnosis for this admission?: Yes Plan: Chronic right toe diabetic foot wound. Foot x-ray not suggestive of osteomyelitis. Followed by the wound care clinic. Possible source Group B bacteremia; wound culture does show group B strep, MRSA, alcaligenes Wound care per clinic's recommendations. ID consultation (6) Acute gout due to renal impairment involving knee Qualifiers: Laterality: left Qualified Code(s): M10.362 - Gout due to renal impairment, left knee Is this a current diagnosis for this admission?: Yes Plan: Uric acid 11.0 Received colchicine (7) Anemia of renal disease Is this a current diagnosis for this admission?: Yes Plan: Stable; hemoglobin 12.8 No evidence of active bleeding at this time. Monitor daily CBC. (8) Chronic congestive heart failure Qualifiers: Heart failure type: unspecified Qualified Code(s): I50.9 - Heart failure, unspecified Is this a current diagnosis for this admission?: Yes Plan: Stable and without exacerbation at this time. Continue aspirin, atorvastatin/Zetia, home dose furosemide and metolazone. Cardiac/prerenal diet. Daily weights, strict I&O's. Dr. Sam is consulted; appreciate his assistance. (9) Chronic kidney disease (CKD) Qualifiers: Chronic kidney disease stage: unspecified stage Qualified Code(s): N18.9 - Chronic kidney disease, unspecified Is this a current diagnosis for this admission?: Yes Plan: Acute injury superimposed on chronic kidney disease has resolved. Creatinine 1.73 -> 1.16-> 1.08-> 1.12 Continue to encourage p.o. fluids. Avoid nephrotoxic medications as able. Have resumed home dose furosemide and metolazone; watch closely for worsening renal function. Daily chemistries. (10) Hyperlipidemia Qualifiers: Hyperlipidemia type: unspecified Qualified Code(s): E78.5 - Hyperlipidemia, unspecified Is this a current diagnosis for this admission?: Yes Plan: Cardiac diet. Continue atorvastatin and Zetia. (11) Hypertension Qualifiers: Hypertension type: essential hypertension Qualified Code(s): I10 - Ess ential (primary) hypertension Is this a current diagnosis for this admission?: Yes Plan: Continue home dose amlodipine, furosemide, Metolazone Cardiac diet. (12) Hyperuricemia Is this a current diagnosis for this admission?: Yes Plan: Uric acid 11.0 Received colchicine (13) Hypokalemia Is this a current diagnosis for this admission?: Yes Plan: Resolved. (14) Morbid obesity Is this a current diagnosis for this admission?: Yes Plan: BMI 41.2 Dietary discretion and lifestyle modification are encouraged. Registered dietitian and special education paraeducator consulted. (15) Renal transplant recipient Is this a current diagnosis for this admission?: Yes Plan: Renal function is stable. Continue home medication regiment. (16) Unspecified atrial fibrillation Qualifiers: Atrial fibrillation type: unspecified chronic Qualified Code(s): I48.20 - Chronic atrial fibrillation, unspecified; I48.2 - Chronic atrial fibrillation Is this a current diagnosis for this admission?: Yes Plan: Noted on preop EKG. Patient is placed on telemetry. Heart rate currently acceptable without rate controlling medications. Dr. Sam is consulted; appreciate his assistance. Patient is placed on twice daily Eliquis. (17) Hyponatremia Is this a current diagnosis for this admission?: Yes Plan: Slight improvement today; 124.6 Negative for UTI. Urine Osmo 229 Urine sodium 28 Serum sodium 124.9 Serum Osmo 268 Suggestive of hypovolemic hyponatremia. Continue gentle IV fluids . Continue home dose furosemide and metolazone. Free water fluid restrict 1.5 L daily. (18) Acute urinary retention Is this a current diagnosis for this admission?: Yes Plan: Urinalysis negative Start Proscar Continue Flomax Courtney catheter (19) Discitis of lumbar region Is this a current diagnosis for this admission?: Yes Plan: As above. (20) Abscess in epidural space of lumbar spine Is this a current diagnosis for this admission?: Yes Plan: As above. - Time Time Spent with patient: 25-34 minutes Medications reviewed and adjusted accordingly: Yes [facility]ticipated [facility]: when bed available
[2019-11-02] MEDS: TAMSULOSIN HCL 0.4 MG CAP.SR.24H PO SCH (18:33)
[2019-11-02] MEDS: FUROSEMIDE 40 MG TABLET PO SCH (18:33)
[2019-11-02] MEDS: ATORVASTATIN CALCIUM 40 MG TABLET PO SCH (21:16)
[2019-11-02] MEDS: METOLAZONE 2.5 MG TABLET PO SCH (21:16)
[2019-11-02] MEDS: INSULIN GLARGINE,HUM.REC.ANLOG 1,000 UNIT/10 ML VIAL SUBCUT SCH (21:17)
[2019-11-03] MEDS: NORMAL SALINE 1000 ML 1,000 ML IV PRN (03:38)
[2019-11-03 04:46] LABS: HEMATOCRIT 36.4 % (37.9-51.0); HEMOGLOBIN 12.4 g/dL (13.5-17.0); MEAN CORPUSCULAR HEMOGLOBIN 24.8 pg (27.0-33.4); MEAN CORPUSCULAR HGB CONC 34.1 g/dL (32.0-36.0); MEAN CORPUSCULAR VOLUME 73 fl (80-97); PLATELET COUNT 224 10^3/uL (150-450); RED BLOOD COUNT 5.01 10^6/uL (4.35-5.55); RED CELL DISTRIBUTION WIDTH 18.5 % (11.5-14.0); WHITE BLOOD COUNT 9.7 10^3/uL (4.0-10.5)
[2019-11-03 05:06] LABS: ANION GAP 10 (5-19); BLOOD UREA NITROGEN 34 mg/dL (7-20); CALCIUM 7.8 mg/dL (8.4-10.2); CARBON DIOXIDE 28 mmol/L (22-30); CHLORIDE 83 mmol/L (98-107); GLUCOSE 243 mg/dL (75-110); POTASSIUM 3.3 mmol/L (3.6-5.0)
[2019-11-03] MEDS: MYFORTIC 180 MG PO SCH (05:56)
[2019-11-03] MEDS: ENVARSUS 4 MG PO SCH (05:56)
[2019-11-03] MEDS: CEFEPIME HCL 2 GM in DEXTROSE 5%-WATER 50 ML IV SCH (05:56)
[2019-11-03] MEDS: POTASSIUM CHLORIDE 10 MEQ TABLET.ER PO SCH (07:55)
[2019-11-03] MEDS: PHOSPHORUS #1 250 MG TABLET PO SCH (07:55)
[2019-11-03] MEDS: INSULIN LISPRO 100 UNIT/ML 3 ML VIAL SUBCUT SCH (08:13)
[2019-11-03 08:24] VITALS: BP 152/72
[2019-11-03 08:42] LABS: OSMOLALITY,URINE 358 mOsm/kg (300-900)
[2019-11-03 08:53] LABS: URINE SODIUM 81 mmol/L (30-90)
[2019-11-03] MEDS: FINASTERIDE 5 MG TABLET PO SCH (09:00)
[2019-11-03] MEDS: AMLODIPINE BESYLATE 5 MG TABLET PO SCH (09:00)
[2019-11-03] MEDS: APIXABAN 5 MG TABLET PO SCH (09:00)
[2019-11-03] MEDS: EZETIMIBE 10 MG TABLET PO SCH (09:00)
[2019-11-03] MEDS: DOCUSATE SODIUM 100 MG CAPSULE PO SCH (09:00)
[2019-11-03] MEDS: FAMOTIDINE 20 MG TABLET PO SCH (09:00)
[2019-11-03] MEDS: FUROSEMIDE 80 MG TABLET PO SCH (09:00)
--- NOTE | 2019-11-03 09:41 | Progress Note ---
Provider Note Provider Note: Pt was briefly seen as he was being transferred to ambulance service for transport to [facility]. Overnight events, vital signs, and laboratory results were reviewed. Patient reports that he is feeling well and has no new questions or concerns; pleased to be transferring for further evaluation of his discitis/osteomyelitis and possible epidural abscess. No concerns per nursing that need to be addressed prior to transport. Patient is hemodynamically stable for transfer to tertiary facility.
== END 2019-11-03 09:18 | disposition short-term general hospital (02) | DRG 485 ==
LOC: ER 12:31 → EH 21:53 → 3N 23:30
PROVIDERS: ADMIT Emergency Medicine; ATTEND Emergency Medicine
PROC: 3E0U33Z Introduction of Anti-inflammatory into Joints, Percutaneous Approach (ICD-10-PCS; 2019-10-27)
PROC: 3E0U3BZ Introduction of Anesthetic Agent into Joints, Percutaneous Approach (ICD-10-PCS; 2019-10-27)
PROC: 0SCD4ZZ Extirpation of Matter from Left Knee Joint, Percutaneous Endoscopic Approach (ICD-10-PCS; 2019-10-30)
PROC: 0S9D4ZX Drainage of Left Knee Joint, Percutaneous Endoscopic Approach, Diagnostic (ICD-10-PCS; 2019-10-30)
PROC: 0SBD4ZZ Excision of Left Knee Joint, Percutaneous Endoscopic Approach (ICD-10-PCS; principal; 2019-10-30 14:00)
DX: M00.262 Other streptococcal arthritis, left knee (principal); G06.2 Extradural and subdural abscess, unspecified; N18.6 End stage renal disease; R78.81 Bacteremia; I13.2 Hypertensive heart and chronic kidney disease with heart failure and with stage 5 chronic kidney disease, or end stage renal disease; N17.9 Acute kidney failure, unspecified; E87.1 Hypo-osmolality and hyponatremia; M86.9 Osteomyelitis, unspecified; Z68.41 Body mass index [BMI] 40.0-44.9, adult; Z94.0 Kidney transplant status; M10.362 Gout due to renal impairment, left knee; D63.1 Anemia in chronic kidney disease; E11.621 Type 2 diabetes mellitus with foot ulcer; E11.69 Type 2 diabetes mellitus with other specified complication; E11.22 Type 2 diabetes mellitus with diabetic chronic kidney disease; I50.9 Heart failure, unspecified; E11.51 Type 2 diabetes mellitus with diabetic peripheral angiopathy without gangrene; E11.42 Type 2 diabetes mellitus with diabetic polyneuropathy; B95.1 Streptococcus, group B, as the cause of diseases classified elsewhere; E78.5 Hyperlipidemia, unspecified; E87.6 Hypokalemia; E66.01 Morbid (severe) obesity due to excess calories; R33.9 Retention of urine, unspecified; M54.9 Dorsalgia, unspecified; G89.29 Other chronic pain; L97.519 Non-pressure chronic ulcer of other part of right foot with unspecified severity; G47.30 Sleep apnea, unspecified; I48.0 Paroxysmal atrial fibrillation; K21.9 Gastro-esophageal reflux disease without esophagitis; F32.9 Major depressive disorder, single episode, unspecified; M25.462 Effusion, left knee; R41.0 Disorientation, unspecified; M10.062 Idiopathic gout, left knee; Z79.82 Long term (current) use of aspirin; Z79.4 Long term (current) use of insulin; Z79.52 Long term (current) use of systemic steroids; Z79.01 Long term (current) use of anticoagulants; Z79.899 Other long term (current) drug therapy; Z88.8 Allergy status to other drugs, medicaments and biological substances; Z91.041 Radiographic dye allergy status; Z86.718 Personal history of other venous thrombosis and embolism; Z95.820 Peripheral vascular angioplasty status with implants and grafts; Z98.84 Bariatric surgery status; Z86.11 Personal history of tuberculosis; Z83.3 Family history of diabetes mellitus; Z82.49 Family history of ischemic heart disease and other diseases of the circulatory system
CPT/HCPCS: 01400; 36415; 71045; 72110; 72158; 73522; 80048; 80053; 80061; 80069; 81001; 82962; 83036; 83605; 83690; 83735; 83930; 83935; 84300; 84443; 84550; 85025; 85027; 86140; 87040; 87070; 87075; 87077; 87086; 87150; 87186; 87205; 87804; 89050; 89060; 93005; 93010; 93306; 93971; 94640; 96361; 96365; 96366; 96374; 96375; 99283; 99285; A9576; J0171; J0295; J0692; J1100; J1170; J1580; J1644; J1815; J1885; J1940; J2250; J2405; J2704; J3010; J3301; J3480; J3490; J7030; J7060; J7512; S0119